=== PATIENT | female | born 1940 | race Caucasian/White ===

== ENCOUNTER → 2020-06-21 10:47 | Outpatient (BNVA) | payer MEDICARE, OTHER, SELFPAY | PROVIDERS: PCP Internal Medicine; Referring Provider Internal Medicine; Visit Provider Internal Medicine Endocrinology, Diabetes & Metabolism | DX: E11.65 Type 2 diabetes mellitus with hyperglycemia (principal); I12.9 Hypertensive chronic kidney disease with stage 1 through stage 4 chronic kidney disease, or unspecified chronic kidney disease; E11.22 Type 2 diabetes mellitus with diabetic chronic kidney disease; N18.4 Chronic kidney disease, stage 4 (severe); E11.40 Type 2 diabetes mellitus with diabetic neuropathy, unspecified; E11.3299 Type 2 diabetes mellitus with mild nonproliferative diabetic retinopathy without macular edema, unspecified eye; Z79.4 Long term (current) use of insulin; E78.5 Hyperlipidemia, unspecified; E55.9 Vitamin D deficiency, unspecified; E66.9 Obesity, unspecified; Z68.34 Body mass index [BMI] 34.0-34.9, adult; Z79.899 Other long term (current) drug therapy | CPT/HCPCS: 82947; 99212 ==

== ENCOUNTER → 2020-10-18 10:18 | Outpatient (BNVA) | payer MEDICARE, OTHER, SELFPAY | PROVIDERS: PCP Internal Medicine; Visit Provider Internal Medicine Endocrinology, Diabetes & Metabolism | DX: E11.65 Type 2 diabetes mellitus with hyperglycemia (principal); E11.21 Type 2 diabetes mellitus with diabetic nephropathy; E11.649 Type 2 diabetes mellitus with hypoglycemia without coma; E11.3299 Type 2 diabetes mellitus with mild nonproliferative diabetic retinopathy without macular edema, unspecified eye; E11.22 Type 2 diabetes mellitus with diabetic chronic kidney disease; I12.9 Hypertensive chronic kidney disease with stage 1 through stage 4 chronic kidney disease, or unspecified chronic kidney disease; N18.4 Chronic kidney disease, stage 4 (severe); Z79.4 Long term (current) use of insulin; E78.5 Hyperlipidemia, unspecified; E55.9 Vitamin D deficiency, unspecified; E66.9 Obesity, unspecified | CPT/HCPCS: 82947; 99212 ==

== ENCOUNTER → 2021-01-18 10:38 | Outpatient (BNVA) | payer MEDICARE, OTHER, SELFPAY | PROVIDERS: PCP Internal Medicine; Visit Provider Internal Medicine Endocrinology, Diabetes & Metabolism | DX: E11.65 Type 2 diabetes mellitus with hyperglycemia (principal); E11.21 Type 2 diabetes mellitus with diabetic nephropathy; E11.649 Type 2 diabetes mellitus with hypoglycemia without coma; E11.3299 Type 2 diabetes mellitus with mild nonproliferative diabetic retinopathy without macular edema, unspecified eye; E11.22 Type 2 diabetes mellitus with diabetic chronic kidney disease; I12.9 Hypertensive chronic kidney disease with stage 1 through stage 4 chronic kidney disease, or unspecified chronic kidney disease; N18.4 Chronic kidney disease, stage 4 (severe); E78.5 Hyperlipidemia, unspecified; E55.9 Vitamin D deficiency, unspecified; E66.9 Obesity, unspecified; Z79.4 Long term (current) use of insulin | CPT/HCPCS: 82947; 99212 ==

== ENCOUNTER → 2021-05-17 12:19 | Outpatient (BNVA) | payer MEDICARE, OTHER, SELFPAY | PROVIDERS: PCP Internal Medicine; Visit Provider Nurse Practitioner Gerontology | DX: E11.65 Type 2 diabetes mellitus with hyperglycemia (principal); E11.21 Type 2 diabetes mellitus with diabetic nephropathy; E11.649 Type 2 diabetes mellitus with hypoglycemia without coma; E11.22 Type 2 diabetes mellitus with diabetic chronic kidney disease; E11.42 Type 2 diabetes mellitus with diabetic polyneuropathy; E11.3299 Type 2 diabetes mellitus with mild nonproliferative diabetic retinopathy without macular edema, unspecified eye; I12.9 Hypertensive chronic kidney disease with stage 1 through stage 4 chronic kidney disease, or unspecified chronic kidney disease; N18.4 Chronic kidney disease, stage 4 (severe); E78.5 Hyperlipidemia, unspecified; E55.9 Vitamin D deficiency, unspecified; E03.9 Hypothyroidism, unspecified; I48.91 Unspecified atrial fibrillation; Z68.37 Body mass index [BMI] 37.0-37.9, adult; Z79.4 Long term (current) use of insulin; Z79.899 Other long term (current) drug therapy | CPT/HCPCS: 82947; 83036; 99212 ==

== ENCOUNTER → 2021-09-11 10:15 | Outpatient (BNVA) | payer MEDICARE, SELFPAY | PROVIDERS: PCP Internal Medicine; Visit Provider Nurse Practitioner Gerontology | DX: E11.65 Type 2 diabetes mellitus with hyperglycemia (principal); E11.21 Type 2 diabetes mellitus with diabetic nephropathy; E11.649 Type 2 diabetes mellitus with hypoglycemia without coma; E11.22 Type 2 diabetes mellitus with diabetic chronic kidney disease; I12.9 Hypertensive chronic kidney disease with stage 1 through stage 4 chronic kidney disease, or unspecified chronic kidney disease; N18.4 Chronic kidney disease, stage 4 (severe); E11.3299 Type 2 diabetes mellitus with mild nonproliferative diabetic retinopathy without macular edema, unspecified eye; E11.42 Type 2 diabetes mellitus with diabetic polyneuropathy; E78.5 Hyperlipidemia, unspecified; E55.9 Vitamin D deficiency, unspecified; E66.9 Obesity, unspecified; Z68.35 Body mass index [BMI] 35.0-35.9, adult; Z79.4 Long term (current) use of insulin | CPT/HCPCS: 82947; 83036; 99212 ==

== ENCOUNTER 2021-09-27 09:44 | Outpatient (REF) | payer MEDICARE, SELFPAY ==
[2021-09-27 11:34] LABS: Alanine Aminotransferase < 6 U/L (0-31); Aspartate Amino Transferase 14 U/L (5-31); Cholesterol 143 mg/dL; HDL Cholesterol 48 mg/dL; LDL Cholesterol Calculated 83 mg/dl; Triglycerides 63 mg/dL
[2021-09-27 11:55] LABS: Free T4 (Free Thyroxine) 1.31 ng/dL (0.71-1.85); Thyroid Stimulating Hormone 2.42 uIU/mL (0.32-4.0)
[2021-09-27 11:59] LABS: Creatinine Urine 119.43 mg/dL; Microalbum/Creatinine Ratio Ur 654.7 ug/mg cr
[2021-09-29 01:22] LABS: LDL Cholesterol Direct 82 mg/dL (<100)
== END 2021-09-27 09:45 | disposition home or self-care (01) ==
LOC: HO.LAB 09:44
PROVIDERS: PCP Internal Medicine; Visit Provider Nurse Practitioner Gerontology
DX: E78.5 Hyperlipidemia, unspecified (principal); E03.9 Hypothyroidism, unspecified; E11.65 Type 2 diabetes mellitus with hyperglycemia
CPT/HCPCS: 36415; 80061; 82043; 83721; 84439; 84443; 84450; 84460

== ENCOUNTER → 2021-12-11 09:39 | Outpatient (BNVA) | payer MEDICARE, SELFPAY | PROVIDERS: PCP Internal Medicine; Visit Provider Nurse Practitioner Gerontology | DX: E11.42 Type 2 diabetes mellitus with diabetic polyneuropathy (principal); E11.3299 Type 2 diabetes mellitus with mild nonproliferative diabetic retinopathy without macular edema, unspecified eye; E55.9 Vitamin D deficiency, unspecified; E66.9 Obesity, unspecified | CPT/HCPCS: 82947; 83036; 99212 ==

== ENCOUNTER 2022-06-03 09:26 | Outpatient (REF) | payer MEDICARE, SELFPAY ==
[2022-06-03 11:22] LABS: MANUAL DIFF FLAG NO
[2022-06-03 11:27] LABS: Basophils Absolute Auto 0.1 X10*3/uL (0.0-0.2); Basophils Percent Auto 1.2 % (0-2); Eosinophils Absolute Auto 0.4 X10*3/uL (0.0-0.4); Hematocrit 40.2 % (37.0-47.0); Hemoglobin 12.8 g/dl (12.0-16.0); Imm Gran Abs Auto 0.01 X10*3/uL (0.00-0.03); Imm Gran Pct Auto 0.2 % (0.0-0.4); Lymphocytes Absolute Auto 1.2 X10*3/uL (1.2-4.9); Mean Corpuscular HGB Conc 31.8 g/dl (31.0-35.0); Mean Corpuscular Hemoglobin 29.8 pg (27.0-33.0); Mean Corpuscular Volume 93.7 fL (80.0-98.0); Mean Platelet Volume 10.6 fL (9.4-12.3); Monocytes Absolute Auto 0.5 X10*3/uL (0.1-1.2); Monocytes Percent Auto 8.9 % (2-11); Neutrophils Absolute Auto 3.7 x10*3/uL (2.0-8.3); Neutrophils Percent Auto 63.7 % (45-73); Platelet Count 271 X10*3/uL (160-400); Red Blood Count 4.29 X10*6/uL (4.20-5.50); Red Cell Distribution Width 14.8 % (11.0-16.0); White Blood Count 5.9 X10*3/uL (4.8-10.8)
[2022-06-03 12:17] LABS: Alanine Aminotransferase 14 U/L (0-31); Albumin Level 3.6 g/dL (3.5-5.0); Alkaline Phosphatase 104 U/L (39-117); Anion Gap 18 (12-20); Aspartate Amino Transferase 18 U/L (5-31); Bilirubin Total 0.7 mg/dL (0.0-1.0); Blood Urea Nitrogen 25 mg/dL (9-16); Calcium 9.3 mg/dL (8.4-10.2); Carbon Dioxide 23 mmol/L (22-29); Chloride 107 mmol/L (96-108); Cholesterol 136 mg/dL; Estimated Glomerular Filt Rate 31; Glucose Fasting 177 mg/dL (60-99); HDL Cholesterol 39 mg/dL; LDL Cholesterol Calculated 81 mg/dl; Sodium 144 mmol/L (135-145); Total Protein 7.1 g/dL (6.5-8.0); Triglycerides 81 mg/dL
[2022-06-03 12:25] LABS: Free T4 (Free Thyroxine) 1.35 ng/dL (0.71-1.85); Thyroid Stimulating Hormone 0.44 uIU/mL (0.32-4.0); Vitamin D 25-OH Total 46.5 ng/mL (>30)
[2022-06-03 12:27] LABS: Estimated Average Glucose 180 mg/dL; Hemoglobin A1c % 7.9 %
== END 2022-06-03 09:27 | disposition home or self-care (01) ==
LOC: HO.HMGCLDS 09:26
PROVIDERS: PCP Internal Medicine; Visit Provider Internal Medicine
DX: E03.9 Hypothyroidism, unspecified (principal); I12.9 Hypertensive chronic kidney disease with stage 1 through stage 4 chronic kidney disease, or unspecified chronic kidney disease; E11.22 Type 2 diabetes mellitus with diabetic chronic kidney disease; N18.4 Chronic kidney disease, stage 4 (severe); I48.20 Chronic atrial fibrillation, unspecified; E78.5 Hyperlipidemia, unspecified; E55.9 Vitamin D deficiency, unspecified; E66.9 Obesity, unspecified; E11.42 Type 2 diabetes mellitus with diabetic polyneuropathy; E11.21 Type 2 diabetes mellitus with diabetic nephropathy; E11.3299 Type 2 diabetes mellitus with mild nonproliferative diabetic retinopathy without macular edema, unspecified eye
CPT/HCPCS: 36415; 80053; 80061; 82306; 83036; 84439; 84443; 85025

== ENCOUNTER 2022-09-14 09:32 | Outpatient (REF) | payer MEDICARE, SELFPAY ==
[2022-09-14 11:56] LABS: Estimated Average Glucose 163 mg/dL; Hemoglobin A1c % 7.3 %
[2022-09-14 12:20] LABS: Alanine Aminotransferase 11 U/L (0-31); Aspartate Amino Transferase 15 U/L (5-31); Cholesterol 138 mg/dL; HDL Cholesterol 51 mg/dL; LDL Cholesterol Calculated 74 mg/dl; Triglycerides 68 mg/dL
[2022-09-14 12:26] LABS: Free T4 (Free Thyroxine) 1.11 ng/dL (0.71-1.85); Thyroid Stimulating Hormone 1.51 uIU/mL (0.32-4.0); Vitamin D 25-OH Total 42.7 ng/mL (>30)
== END 2022-09-14 09:33 | disposition home or self-care (01) ==
LOC: HO.HMGCLDS 09:32
PROVIDERS: PCP Internal Medicine; Visit Provider Internal Medicine
DX: E11.3299 Type 2 diabetes mellitus with mild nonproliferative diabetic retinopathy without macular edema, unspecified eye (principal); E11.42 Type 2 diabetes mellitus with diabetic polyneuropathy; E78.5 Hyperlipidemia, unspecified; E03.9 Hypothyroidism, unspecified
CPT/HCPCS: 36415; 80061; 82306; 83036; 84439; 84443; 84450; 84460

== ENCOUNTER 2022-11-13 08:54 | Outpatient (REF) | payer MEDICARE, SELFPAY ==
--- NOTE | ~2022-11-13 | MM_ITS ---
EXAMINATION: BONE DENSITOMETRY CLINICAL INDICATION: Chronic kidney disease, stage IV. COMPARISON: This is the patient's baseline examination. TECHNIQUE: Using a [employer] DXA System (software version: 13.1) manufactured by [employer] dual-energy x-ray absorptiometry was performed of the lumbar spine, left hip and left forearm radius 33%. The images are of good technical quality. Summary results are attached. FINDINGS: AP SPINE L1-L4: BMD 1.208 g/cm2, Z-score 1.5, T-score 0.2, normal. LEFT FEMUR, NECK: BMD 0.636 g/cm2, Z-score -1.1, T-score -2.9, osteoporosis. LEFT FEMUR, TOTAL: BMD 0.704 g/cm2, Z-score -0.7, T-score -2.4, osteopenia. LEFT FOREARM RADIUS 33%: BMD 0.691 g/cm2, Z-score 0.7, T-score -2.1, osteopenia. IDENTIFIED RISK FACTORS: Early menopause, secondary osteoporosis, history of fracture (adult), menopause, hysterectomy, left oophorectomy, renal, thiazide. HISTORY OF FRACTURE: Other. MEDICATIONS: Vitamin D. MM/XR DEXA axial skeleton IMPRESSION: 1. DIAGNOSIS: Osteoporosis based on the lowest T-score value of -2.9 in the femoral neck applying World Health Organization criteria. 2. 10-YEAR FRACTURE RISK PREDICTION, FRAX: According to the guidelines, FRAX calculation should only be performed on patients in the osteopenia bone density category. Therefore, FRAX was not performed on this patient. 3. Treatment Recommendations: NOF guidelines recommend consideration for treatment in postmenopausal women and men age 50 and older presenting with the following: -A hip or vertebral (clinical or morphometric) fracture. -T-score less than or equal to -2.5 at the femoral neck or spine after appropriate evaluation to exclude secondary causes. -Low bone mass at the hip or spine and a 10-year fracture probability by FRAX of greater than or equal to 3% for hip fracture or greater than or equal to 20% for major osteoporotic fracture based on the [place] adapted WHO algorithm. 4. Other Recommendations: All treatment decisions require clinical judgment and consideration of individual patient factors, including patient preferences, comorbidities, previous drug use, risk factors not captured in the FRAX model (e.g. frailty, falls, vitamin D deficiency, increased bone turnover, interval significant decline in bone density) and possible under or overestimation of fracture risk by FRAX. Additional medical evaluation for secondary cause of low bone mineral density may be appropriate. FUTURE SCAN RECOMMENDATION: People with diagnosed cases of osteoporosis or at high risk for fracture should have regular bone mineral density tests. For patients eligible for Medicare, routine testing is allowed once every 2 years. The testing frequency can be increased to one year for patients who have rapidly progressing disease, those who are receiving or discontinuing medical therapy to restore bone mass, or have additional risk factors.
== END 2022-11-13 08:55 | disposition home or self-care (01) ==
LOC: HO.MAMMO 08:54
PROVIDERS: PCP Internal Medicine; Visit Provider Internal Medicine
DX: Z13.820 Encounter for screening for osteoporosis (principal); N18.4 Chronic kidney disease, stage 4 (severe); E55.9 Vitamin D deficiency, unspecified; Z78.0 Asymptomatic menopausal state
CPT/HCPCS: 77080

== ENCOUNTER 2022-12-13 09:03 | Outpatient (REF) | payer MEDICARE, SELFPAY ==
[2022-12-13 11:25] LABS: MANUAL DIFF FLAG NO
[2022-12-13 11:56] LABS: Basophils Absolute Auto 0.1 X10*3/uL (0.0-0.2); Basophils Percent Auto 0.9 % (0-2); Eosinophils Absolute Auto 0.4 X10*3/uL (0.0-0.4); Eosinophils Percent Auto 5.7 % (0-4); Hemoglobin 13.4 g/dl (12.0-16.0); Imm Gran Abs Auto 0.03 X10*3/uL (0.00-0.03); Imm Gran Pct Auto 0.4 % (0.0-0.4); Lymphocytes Absolute Auto 0.9 X10*3/uL (1.2-4.9); Lymphocytes Percent Auto 12.7 % (20-40); Mean Corpuscular HGB Conc 31.9 g/dl (31.0-35.0); Mean Corpuscular Hemoglobin 30.5 pg (27.0-33.0); Mean Corpuscular Volume 95.5 fL (80.0-98.0); Mean Platelet Volume 10.4 fL (9.4-12.3); Monocytes Absolute Auto 0.6 X10*3/uL (0.1-1.2); Monocytes Percent Auto 7.6 % (2-11); Neutrophils Absolute Auto 5.4 x10*3/uL (2.0-8.3); Neutrophils Percent Auto 72.7 % (45-73); Platelet Count 284 X10*3/uL (160-400); Red Cell Distribution Width 14.6 % (11.0-16.0); White Blood Count 7.4 X10*3/uL (4.8-10.8)
[2022-12-13 12:27] LABS: Estimated Average Glucose 163 mg/dL; Hemoglobin A1c % 7.3 %
[2022-12-13 12:30] LABS: Alanine Aminotransferase 11 U/L (0-31); Anion Gap 17 (12-20); Aspartate Amino Transferase 15 U/L (5-31); Blood Urea Nitrogen 28 mg/dL (9-16); Calcium 9.1 mg/dL (8.4-10.2); Carbon Dioxide 24 mmol/L (22-29); Chloride 108 mmol/L (96-108); Cholesterol 149 mg/dL; Estimated Glomerular Filt Rate 32; Glucose Fasting 198 mg/dL (60-99); HDL Cholesterol 47 mg/dL; LDL Cholesterol Calculated 87 mg/dl; Potassium 4.1 mmol/L (3.3-5.1); Sodium 145 mmol/L (135-145); Triglycerides 77 mg/dL
[2022-12-13 12:32] LABS: Free T4 (Free Thyroxine) 1.69 ng/dL (0.71-1.85); Thyroid Stimulating Hormone 0.77 uIU/mL (0.32-4.0); Vitamin D 25-OH Total 47.9 ng/mL (>30)
== END 2022-12-13 09:04 | disposition home or self-care (01) ==
LOC: HO.HMGCLDS 09:03
PROVIDERS: PCP Internal Medicine; Visit Provider Internal Medicine
DX: I12.9 Hypertensive chronic kidney disease with stage 1 through stage 4 chronic kidney disease, or unspecified chronic kidney disease (principal); E11.22 Type 2 diabetes mellitus with diabetic chronic kidney disease; N18.4 Chronic kidney disease, stage 4 (severe); E03.9 Hypothyroidism, unspecified; E11.21 Type 2 diabetes mellitus with diabetic nephropathy; E11.3299 Type 2 diabetes mellitus with mild nonproliferative diabetic retinopathy without macular edema, unspecified eye; E11.42 Type 2 diabetes mellitus with diabetic polyneuropathy; E55.9 Vitamin D deficiency, unspecified; E78.5 Hyperlipidemia, unspecified; I48.20 Chronic atrial fibrillation, unspecified; Z79.4 Long term (current) use of insulin
CPT/HCPCS: 36415; 80048; 80061; 82306; 83036; 84439; 84443; 84450; 84460; 85025

== ENCOUNTER 2022-12-16 11:00 | Outpatient (AMB) | payer MEDICARE, SELFPAY ==
--- NOTE | 2022-12-16 11:11 | MHC.PC.OV ---
Vital Signs 12/16/22 11:14 Height 5 ft 2 in Weight 181 lb 8 oz BMI 33.2 BP 136/84 Blood Pressure Location Rt brachial Position Sitting Pulse 91 Pulse Source Pulse Oximeter Pulse Oximetry (%) 94 Oxygen Delivery Method Room Air Intake Visit Reasons: 3 months ffup dm ,lipids, thyroid after labs done Intake Note: Pt is here today for 3 month f/u dm. lipids, thyroid Allergies No Known Allergies [No Known Allergies*] Allergy (Verified 06/11/23 10:16) Medication List - Last Reconciled 09/19/23 by Lindsay Mckeon MD apixaban 2.5 mg PO BID atorvastatin 20 mg PO DAILY blood sugar diagnostic As directed blood sugar diagnostic (Accu-Chek Karlie Plus test strips) As directed 4 times a day blood-glucose meter (Accu-Chek Karlie Plus Meter) As directed 4 times a day cholecalciferol (vitamin D3) 50 mcg PO DAILY [diabetic shoes As directed] [Diabetic shoes with inserts As directed NS] diltiazem HCl (Cartia XT) 300 mg PO DAILY furosemide 20 mg PO DAILY insulin lispro (Humalog KwikPen (U-100) Insulin) 4 - 6 units for meals, 2-3 units snacks subcut five times a day ; 90 days lancets As directed 4x per day levothyroxine 150 mcg PO DAILY lisinopril 20 mg PO DAILY metoprolol succinate ER 200 mg PO DAILY potassium chloride ER 10 mEq PO DAILY Toujeo SoloStar U-300 Insulin (insulin glargine U-300 conc) 15 units (0.05 mL) subcut BEDTIME 90 days NS Tobacco use date assessed: 12/16/22 Fall risk assessment: No Falls in past year Last assessed Fall Risk: 12/16/22 HPI 3 months ffup dm ,lipids, thyroid after labs done HPI Details 82-year-old lady with diabetes mellitus, hypothyroidism and hyperlipidemia, here today for her follow-up. She has been compliant with taking her medications. Blood pressure stable and controlled on present treatment. Recent labs showed fasting lipids within normal limits, thyroid levels are as well within normal limits, hemoglobin A1c slightly elevated at 7.3% been feeling. Has been feeling well with no complaints at present time. Last eye exam on file was in 2020 which showed background diabetic retinopathy [facility] . 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 Background diabetic retinopathy associated with type 2 diabetes mellitus Osteoarthritis Hypothyroidism Carotid stenosis, right Obesity (BMI 30-39.9) Dyslipidemia Hypertension CKD (chronic kidney disease) stage 4, GFR 15-29 ml/min Diabetic nephropathy associated with type 2 diabetes mellitus senior living (current) use of insulin Vitamin D deficiency Surgical History Hx of left mastectomy Hx of tubal ligation Hx of lumpectomy Hx of hysterectomy Family History Father Coronary artery disease Diabetes mellitus Mother Diabetes mellitus Social History Household Members: None Housing: House Alcohol intake: never Patient Tobacco Use Status: Never used Tobacco e-Cigarette/Vaping Use: Never Used Current occupational status: retired Cognitive needs: No Hearing needs: No Vision needs: Yes Questionnaire Thrive Questionnaire Date Thrive assessed: 09/18/22 AUDIT C Alcohol Use Questionnaire (AUDIT-C) 1. How often do you have a drink containing alcohol?: Never Total Score: 0 LOC-7 AMB Questionnaire LOC-7 Date LOC - 7 assessed: 09/18/22 Source: Developed by Drs. Black Frank, Wendy Lugo, Ryan Pineda and colleagues, with an educational kathi from [employer]. Review of Systems Const Denies headache(s) and Denies weakness Eyes Denies change in vision ENT Denies dysphagia, Denies dizziness, Denies headache(s), Denies nasal congestion and Denies sore throat Card Denies palpitations and Denies dyspnea Resp Denies cough and Denies dyspnea GI Denies constipation, Denies dysphagia and Denies diarrhea Denies urinary frequency and Denies dysuria Musc Denies muscle cramps, Denies muscle weakness, Reports numbness (Occasional numbness in both feet) and Reports tingling (Occasional in both feet) Skin/Breast Details: Plantar callus present in both feet Neuro Denies dizziness, Denies headache(s), Reports numbness (Occasional numbness in both feet), Reports tingling (Occasional in both feet), Reports paresthesias and Denies weakness Psych Reports no additional complaints Endo Denies polydipsia, Denies polyuria and Denies palpitations Ra/Lymph Denies easy bruising Aller/Immun Reports no additional complaints Physical exam (Primary Care) Vital Signs: Last Vital Signs Pulse 91 12/16/22 11:14 BP 136/84 12/16/22 11:14 Pulse Ox 94 12/16/22 11:14 Oxygen Delivery Method Room Air 12/16/22 11:14 BMI result Body Mass Index 33.2 Tobacco/Smoking Status: Tobacco use Status Tobacco use date assessed 12/16/22 12/16/22 11:12 Patient Tobacco Use Status Never used Tobacco 12/16/22 11:12 e-Cigarette/Vaping Use Never Used 12/16/22 11:12 Thrive Assessment: Date of Thrive Assessment Date Thrive assessed 09/18/22 12/16/22 11:12 Const General: comfortable, no acute distress and alert Orientation/consciousness: patient oriented x3 Limitations: ambulation with walker HENMT Ears: external ears normal General nose exam: Normal external nose present and No nasal discharge present Mouth: oropharynx normal and moist mucous membranes Eyes General: appearance normal, both eyes and all related structures Neck Neck: Yes full ROM, Yes no lymphadenopathy and Yes supple Resp Effort & Inspection: normal respiratory effort and able to speak in complete sentences Auscultation: clear to auscultation bilaterally Cardio Rate: regular rate Rhythm: regular rhythm Heart sounds: S1 normal heart sound present, S2 normal heart sound present and Murmur heart sound present systolic at the left sternal border GI Palpation (GI): Soft to palpation, nontender and no masses Auscultation: normal bowel sounds General: Yes no CVA tenderness Back/Spine/Pelvis Back: no CVA tenderness and No back tenderness Skin General skin exam: no rashes or lesions noted Neuro General: patient oriented x3, moves all extremities, no focal motor deficits and decrease sensation to monofilament (Both feet) Cranial nerves: Yes CN's II-XII intact bilaterally Cognition (Neuro): normal cognition Gait exam (Neuro): Assisted gait required Extrem Other: Plantar callus present in both feet General: Yes full ROM, Yes no joint enlargement, Yes no clubbing, cyanosis or edema and Yes no calf tenderness Psych Appearance: grossly normal and well kempt Mental Status: mental status grossly normal Speech and movement: Normal speech and movement present Affect: normal affect Attitude: cooperative Thought process: Normal thought process present Results Reviewed Results Reviewed: ENTERED: 12/13/[address]: ORDERED: CBC Auto Diff Test Result Flag Reference Site WBC 7.4 4.8-10.8 X10*3/uL RBC 4.40 4.20-5.50 X10*6/uL HGB 13.4 12.0-16.0 g/dl HCT 42.0 37.0-47.0 % MCV 95.5 80.0-98.0 fL MCH 30.5 27.0-33.0 pg MCHC 31.9 31.0-35.0 g/dl RDW 14.6 11.0-16.0 % PLT 284 160-400 X10*3/uL MPV 10.4 9.4-12.3 fL Neut Pct Auto 72.7 45-73 % ImGran Pct Auto 0.4 0.0-0.4 % Lymp Pct Auto 12.7 L 20-40 % Surry Pct Auto 7.6 2-11 % Eos Pct Auto 5.7 H 0-4 % Baso Pct Auto 0.9 0-2 % NRBC Pct Auto 0.0 0.0-0.2 /100WBC ANC Neut Abs # 5.4 2.0-8.3 x10*3/uL ImGran Abs Auto 0.03 0.00-0.03 X10*3/uL Lymph Abs Auto 0.9 L 1.2-4.9 X10*3/uL Surry Abs Auto 0.6 0.1-1.2 X10*3/uL Eos Abs Auto 0.4 0.0-0.4 X10*3/uL Baso Abs Auto 0.1 0.0-0.2 X10*3/uL NRBC Abs Auto 0.000 0.0-0.012 X10*3/uL NTERED: 12/13/[address]: ORDERED: Met Prof Fast, AST, ALT, Lipid Panel, Vitamin D 25-OH, Free T4, TSH Test Result Flag Reference Site Sodium 145 135-145 mmol/L Potassium 4.1 3.3-5.1 mmol/L CL 108 96-108 mmol/L CO2 24 22-29 mmol/L Gap 17 12-20 BUN 28 H 9-16 mg/dL Creat 1.57 H 0.5-1.4 mg/dL EGFR 32 NOTE: For -Vincentian individuals, multiply the result by 1.210. Chronic Kidney Disease: Estimated GFR < 60 mL/min/1.73m2 Severe Kidney Disease: Estimated GFR < 15 mL/min/1.73m2 FBS 198 H 60-99 mg/dL A fasting glucose of 126 mg/dl or greater on more than one occasion is considered diagnostic of diabetes. CA 9.1 8.4-10.2 mg/dL AST (GOT) 15 5-31 U/L ALT (GPT) 11 0-31 U/L Triglyceride 77 mg/dL Desirable Triglyceride: less than 150 mg/dL Borderline High Triglyceride 150-199 mg/dL High Triglyceride: 200-499 mg/dL Very High Triglyceride: greater than or equal to 5OO mg/dL Chol 149 mg/dL Desirable Cholesterol: less than 200 mg/dL Borderline High Cholesterol: 200-239 mg/dL High Cholesterol: greater than 239 mg/dL LDL Calculated 87 mg/dl Desirable LDL: less than 100 mg/dL Near Optimal/Above Optimal LDL: 110-129 mg/dL Borderline High LDL: 130-159 mg/dL High LDL: 160-189 mg/dL Very High LDL: greater than or equal to 190 mg/dL HDL 47 mg/dL Desirable HDL: greater than 40 mg/dL Note: This HDL assay may give artificially low results in patients with liver disease. Vit D 25-OH Tot 47.9 >30 ng/mL Health Based Reference Values* < 20 ng/mL Deficient 20-30 ng/mL Insufficient > 30 ng/mL Sufficient *Paul KENNY. N Engl J Med. 2007;[id number] Care must be taken in interpreting Vitamin D results from different laboratories and methodologies. Published data demonstrated that results from patients undergoing hemodialysis may show a negative bias when tested with various automated 25-OH vitamin D assays when compared to LC-MS/MS. When testing samples from patients whose predominant form of Vitamin D is Vitamin D2, such as patients receiving Vitamin D2 supplementation, results that are subtherapeutic should be confirmed with another method such as LC-MS/MS. Free T4 1.69 0.71-1.85 ng/dL TSH 3rd Gen. 0.77 0.32-4.0 uIU/mL Laboratory Tests 12/13/22 09:09 Estimat Average Glucose 163 Hemoglobin A1c % 7.3 Assessment and Plan Assessment & Plan (1) Type 2 diabetes mellitus with diabetic polyneuropathy: Code(s): E11.42 - Type 2 diabetes mellitus with diabetic polyneuropathy (2) Hypothyroidism: Code(s): E03.9 - Hypothyroidism, unspecified Plan: Thyroid levels are within normal limits, continue with current dose of levothyroxine (3) Dyslipidemia: Code(s): E78.5 - Hyperlipidemia, unspecified Plan: Reviewed recent fasting lipid profile with patient with levels within normal limit . Continue with atorvastatin 20 mg , in addition to adherence to low-cholesterol diet and regular exercise, at least 30 minutes 3 to 4 times a week. Advised patient to make healthy food choices, eat more fruits, vegetables, whole grains, wild caught fish and low-fat dairy. Limit amount of meat and fried or fatty food products, as well as processed foods and fast foods. Follow-up scheduled with repeat fasting lipid panel in 6 months. (4) Hypertension: Code(s): I10 - Essential (primary) hypertension Qualifiers: Hypertension type: primary hypertension Qualified Code(s): I10 - Essential (primary) hypertension Plan: Continue on lisinopril, metoprolol succinate furosemide and diltiazem. Orders: Orders Thyroid Stimulating Hormone 6 Months E11.42 - Type 2 diabetes mellitus with diabetic polyneuropathy, E11.3299 - Type 2 diabetes mellitus with mild nonproliferative diabetic retinopathy without macular edema, unspecified eye, E03.9 - Hypothyroidism, unspecified, E78.5 - Hyperlipidemia, unspecified, I10 - Essential (primary) hypertension Free T4 (Free Thyroxine) 6 Months E03.9 - Hypothyroidism, unspecified, E11.42 - Type 2 diabetes mellitus with diabetic polyneuropathy, E11.3299 - Type 2 diabetes mellitus with mild nonproliferative diabetic retinopathy without macular edema, unspecified eye, E78.5 - Hyperlipidemia, unspecified, I10 - Essential (primary) hypertension Alanine Aminotransferase 6 Months E11.42 - Type 2 diabetes mellitus with diabetic polyneuropathy, E11.3299 - Type 2 diabetes mellitus with mild nonproliferative diabetic retinopathy without macular edema, unspecified eye, E03.9 - Hypothyroidism, unspecified, E78.5 - Hyperlipidemia, unspecified, I10 - Essential (primary) hypertension Lipid Panel 6 Months E11.42 - Type 2 diabetes mellitus with diabetic polyneuropathy, .329 - Type 2 diabetes mellitus with mild nonproliferative diabetic retinopathy without macular edema, unspecified eye, E03.9 - Hypothyroidism, unspecified, E78.5 - Hyperlipidemia, unspecified, I10 - Essential (primary) hypertension Aspartate Amino Transferase 6 Months E11.42 - Type 2 diabetes mellitus with diabetic polyneuropathy, .329 - Type 2 diabetes mellitus with mild nonproliferative diabetic retinopathy without macular edema, unspecified eye, E03.9 - Hypothyroidism, unspecified, E78.5 - Hyperlipidemia, unspecified, I10 - Essential (primary) hypertension Hemoglobin A1c 6 Months E11.42 - Type 2 diabetes mellitus with diabetic polyneuropathy, .3298 - Type 2 diabetes mellitus with mild nonproliferative diabetic retinopathy without macular edema, unspecified eye, E03.9 - Hypothyroidism, unspecified, E78.5 - Hyperlipidemia, unspecified, I10 - Essential (primary) hypertension Basic Metabolic Panel Fasting 6 Months E11.42 - Type 2 diabetes mellitus with diabetic polyneuropathy, .3298 - Type 2 diabetes mellitus with mild nonproliferative diabetic retinopathy without macular edema, unspecified eye, E03.9 - Hypothyroidism, unspecified, E78.5 - Hyperlipidemia, unspecified, I10 - Essential (primary) hypertension Coding Level of Care Code Est Pt Level 4 (69592) Diagnoses Type 2 diabetes mellitus with diabetic polyneuropathy E11.42 Hypothyroidism E03.9 Dyslipidemia E78.5 Primary hypertension I10 Hypertension type: primary hypertension
[2022-12-16 11:14] VITALS: BP 136/84; PULSE 91; O2SAT 94; BMI 33.2
== END 2022-12-16 12:24 | disposition home or self-care (01) ==
LOC: HO.HMGC 11:00
PROVIDERS: PCP Internal Medicine; Visit Provider Internal Medicine
DX: E11.42 Type 2 diabetes mellitus with diabetic polyneuropathy (principal); E03.9 Hypothyroidism, unspecified; E78.5 Hyperlipidemia, unspecified; I10 Essential (primary) hypertension
CPT/HCPCS: 99499

== ENCOUNTER 2022-12-16 16:55 | Outpatient (REF) | payer MEDICARE, SELFPAY ==
[2022-12-16 18:27] LABS: Creatinine Urine 59.83 mg/dL
[2022-12-16 18:41] LABS: Microalbum/Creatinine Ratio Ur 915.9 ug/mg cr
== END 2022-12-16 16:56 | disposition home or self-care (01) ==
LOC: HO.LNP 16:55
PROVIDERS: Visit Provider Internal Medicine
DX: E11.42 Type 2 diabetes mellitus with diabetic polyneuropathy (principal); I48.20 Chronic atrial fibrillation, unspecified
CPT/HCPCS: 82043

== ENCOUNTER 2023-06-10 11:00 | Outpatient (REF) | payer MEDICARE, SELFPAY ==
[2023-06-10 14:02] LABS: Estimated Average Glucose 154 mg/dL
[2023-06-10 14:03] LABS: Alanine Aminotransferase 8 U/L (0-31); Anion Gap 15 (12-20); Aspartate Amino Transferase 19 U/L (5-31); Blood Urea Nitrogen 29 mg/dL (9-16); Calcium 9.1 mg/dL (8.4-10.2); Carbon Dioxide 24 mmol/L (22-29); Chloride 105 mmol/L (96-108); Cholesterol 153 mg/dL (<200); Estimated Glomerular Filt Rate 33; Glucose Fasting 172 mg/dL (60-99); HDL Cholesterol 51 mg/dL (>40); LDL Cholesterol Calculated 87 mg/dL (<100); Potassium 4.1 mmol/L (3.3-5.1); Sodium 140 mmol/L (135-145); Triglycerides 76 mg/dL (<150)
[2023-06-10 14:25] LABS: Free T4 (Free Thyroxine) 1.32 ng/dL (0.71-1.85)
== END 2023-06-10 11:01 | disposition home or self-care (01) ==
LOC: HO.HMGCLDS 11:00
PROVIDERS: PCP Internal Medicine; Visit Provider Internal Medicine
DX: E11.42 Type 2 diabetes mellitus with diabetic polyneuropathy (principal); E11.3299 Type 2 diabetes mellitus with mild nonproliferative diabetic retinopathy without macular edema, unspecified eye; E78.5 Hyperlipidemia, unspecified; I10 Essential (primary) hypertension; E03.9 Hypothyroidism, unspecified
CPT/HCPCS: 36415; 80048; 80061; 83036; 84439; 84443; 84450; 84460

== ENCOUNTER 2023-06-11 09:16 | Outpatient (AMB) | payer MEDICARE, SELFPAY ==
--- NOTE | 2023-06-11 09:23 | MHC.PC.OV ---
Vital Signs 06/11/23 09:25 Height 5 ft 2 in Weight 172 lb 4 oz BMI 31.5 BP 142/78 H Blood Pressure Location Rt brachial Position Sitting Pulse 55 Pulse Source Pulse Oximeter Pulse Oximetry (%) 97 Oxygen Delivery Method Room Air Intake Visit Reasons: Annual Physical Intake Note: pt is here for her Annual PE and had her Labs yesterday pt has not had her covid her flu vaccine yet Allergies No Known Allergies [No Known Allergies*] Allergy (Verified 06/11/23 10:16) Medication List - Last Reconciled 06/11/23 by Lindsay Mckeon MD apixaban 2.5 mg PO BID atorvastatin 20 mg PO DAILY blood sugar diagnostic As directed blood sugar diagnostic (Accu-Chek Karlie Plus test strips) As directed 4 times a day blood-glucose meter (Accu-Chek Karlie Plus Meter) As directed 4 times a day cholecalciferol (vitamin D3) 50 mcg PO DAILY [diabetic shoes As directed] diltiazem HCl (Cartia XT) 300 mg PO DAILY furosemide 20 mg PO DAILY insulin lispro (Humalog KwikPen (U-100) Insulin) 4 - 6 units for meals, 2-3 units snacks subcut five times a day ; 90 days lancets As directed 4x per day levothyroxine 150 mcg PO DAILY lisinopril 20 mg PO DAILY metoprolol succinate ER 200 mg PO DAILY potassium chloride ER 10 mEq PO DAILY Toujeo SoloStar U-300 Insulin (insulin glargine U-300 conc) 15 units (0.05 mL) subcut BEDTIME 90 days NS Tobacco use date assessed: 06/11/23 Fall risk assessment: No Falls in past year Last assessed Fall Risk: 06/11/23 Dental Screening Dental Screen Date: 06/11/23 Did you have a dental visit in the last 12 months?: No Did you have a dental problem in the last 6 months where you did not have access to dental care?: No Was dental information given to patient?: No HPI Annual Physical HPI Details 82-year-old lady with diabetes mellitus with background diabetic retinopathy and nephropathy, osteoarthritis, hypothyroidism, dyslipidemia, chronic atrial fibrillation on Eliquis, and chronic kidney disease, and history of ductal carcinoma in Situ of breast, here today for her physical exam. She has been feeling well, with no complaints at present time, compliant with taking her medications. She was recently seen by Dr. 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 Continued on current dose of furosemide and to have and repeat echocardiogram done in the future. Fasting lipid panel was ordered by her evaporative cooler installer. An EKG was also done during that visit which showed more ST-T abnormality compared to previous EKG but patient currently symptomatic. Given the risk factors days scheduled her for a pharmacologic nuclear stress test . 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 Diabetes stable and controlled on present treatment so far with a hemoglobin A1c at 7%, fasting lipids are within normal limits with an LDL cholesterol less than 100 mg/dL, has normal vitamin-D level and thyroid levels are also are all within normal limits. 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 Depression Screening Interpretation: Negative Depression Screening Done: Yes Source: Developed by Drs. Black Frank, Wendy Lugo, Ryan Pineda and colleagues, with an educational kathi from [employer]. Thrive Questionnaire Date Thrive assessed: 09/18/22 LOC-7 AMB Questionnaire LOC-7 Date LOC - 7 assessed: 09/18/22 Source: Developed by Drs. Black Frank, Wendy Lugo, Ryan Pineda and colleagues, with an educational kathi from [employer]. Review of Systems Const Denies headache(s) and Denies weakness Eyes Denies change in vision ENT Denies dysphagia, Denies dizziness, Denies headache(s), Denies nasal congestion and Denies sore throat Card Denies palpitations and Denies dyspnea Resp Denies cough and Denies dyspnea GI Denies constipation, Denies dysphagia and Denies diarrhea Denies urinary frequency and Denies dysuria Musc Denies muscle cramps, Denies muscle weakness, Reports numbness (Occasional numbness in both feet) and Reports tingling (Occasional in both feet) Skin/Breast Details: Plantar callus present in both feet Neuro Denies dizziness, Denies headache(s), Reports numbness (Occasional numbness in both feet), Reports tingling (Occasional in both feet), Reports paresthesias and Denies weakness Psych Reports no additional complaints Endo Denies polydipsia, Denies polyuria and Denies palpitations Ra/Lymph Denies easy bruising Aller/Immun Reports no additional complaints Physical exam (Primary Care) Vital Signs: Last Vital Signs Pulse 55 06/11/23 09:25 BP 142/78 H 06/11/23 09:25 Pulse Ox 97 06/11/23 09:25 Oxygen Delivery Method Room Air 06/11/23 09:25 BMI result Body Mass Index 31.5 Tobacco/Smoking Status: Tobacco use Status Tobacco use date assessed 06/11/23 06/11/23 09:34 Patient Tobacco Use Status Never used Tobacco 06/11/23 09:25 e-Cigarette/Vaping Use Never Used 06/11/23 09:25 Depression Screening Interpretation: Negative Thrive Assessment: Date of Thrive Assessment Date Thrive assessed 09/18/22 06/11/23 09:25 Advance Care Planning discussion: On file, no changes Date of discussion: 06/11/23 Who was present: Patient Forms completed: MOLST Time spent: 1-15 minutes, on File Actual minutes spent: 15 Const General: comfortable, no acute distress and alert Orientation/consciousness: patient oriented x3 Limitations: ambulation with walker HENMT Ears: external ears normal General nose exam: Normal external nose present and No nasal discharge present Mouth: oropharynx normal and moist mucous membranes Eyes General: appearance normal, both eyes and all related structures Neck Neck: Yes full ROM, Yes no lymphadenopathy and Yes supple Resp Effort & Inspection: normal respiratory effort and able to speak in complete sentences Auscultation: clear to auscultation bilaterally Cardio Rate: regular rate Rhythm: regular rhythm Heart sounds: S1 normal heart sound present, S2 normal heart sound present and Murmur heart sound present systolic at the left sternal border GI Palpation (GI): Soft to palpation, nontender and no masses Auscultation: normal bowel sounds General: Yes no CVA tenderness Back/Spine/Pelvis Back: no CVA tenderness and No back tenderness Skin General skin exam: no rashes or lesions noted Neuro General: patient oriented x3, moves all extremities, no focal motor deficits and decrease sensation to monofilament (Both feet) Cranial nerves: Yes CN's II-XII intact bilaterally Cognition (Neuro): normal cognition Gait exam (Neuro): Assisted gait required Extrem Other: Plantar callus present in both feet General: Yes full ROM, Yes no joint enlargement, Yes no clubbing, cyanosis or edema and Yes no calf tenderness Psych Appearance: grossly normal and well kempt Mental Status: mental status grossly normal Speech and movement: Normal speech and movement present Affect: normal affect Attitude: cooperative Thought process: Normal thought process present Results Reviewed Results Reviewed: Laboratory Tests 09/14/22 06/10/23 09:37 11:04 Estimat Average Glucose 163 154 Hemoglobin A1c % 7.3 7.0 H AST 15 ALT 11 Cholesterol 138 LDL Cholesterol, Calc 74 HDL Cholesterol 51 25-OH Vitamin D Total 42.7 TSH 1.51 Free T4 1.11 SPEC : [id number] ANIKA: 06/10/23 STATUS: COMP REQ : [id number] RECD: 06/10/23-[address]: Lindsay Mckeon MD COMP: 06/10/23-1425 ENTERED: 06/10/23-[address] [facility] [address]: ORDERED: Met Prof Fast, AST, ALT, Lipid Panel, Free T4, TSH Test Result Flag Reference Site Sodium 140 135-145 mmol/L Potassium 4.1 3.3-5.1 mmol/L CL 105 96-108 mmol/L CO2 24 22-29 mmol/L Gap 15 12-20 BUN 29 H 9-16 mg/dL Creat 1.53 H 0.5-1.4 mg/dL EGFR 33 NOTE: For -[place] individuals, multiply the result by 1.210. Chronic Kidney Disease: Estimated GFR < 60 mL/min/1.73m2 Severe Kidney Disease: Estimated GFR < 15 mL/min/1.73m2 FBS 172 H 60-99 mg/dL A fasting glucose of 126 mg/dl or greater on more than one occasion is considered diagnostic of diabetes. CA 9.1 8.4-10.2 mg/dL AST (GOT) 19 5-31 U/L ALT (GPT) 8 0-31 U/L Triglyceride 76 <150 mg/dL Desirable Triglyceride: less than 150 mg/dL Borderline High Triglyceride 150-199 mg/dL High Triglyceride: 200-499 mg/dL Very High Triglyceride: greater than or equal to 5OO mg/dL Cholesterol 153 <200 mg/dL Desirable Cholesterol: less than 200 mg/dL Borderline High Cholesterol: 200-239 mg/dL High Cholesterol: greater than 239 mg/dL LDL Calculated 87 <100 mg/dL Desirable LDL: less than 100 mg/dL Near Optimal/Above Optimal LDL: 110-129 mg/dL Borderline High LDL: 130-159 mg/dL High LDL: 160-189 mg/dL Very High LDL: greater than or equal to 190 mg/dL HDL 51 >40 mg/dL Desirable HDL: greater than 40 mg/dL Note: This HDL assay may give artificially low results in patients with liver disease. Free T4 1.32 0.71-1.85 ng/dL TSH 3rd Gen. 0.50 0.32-4.0 uIU/mL TSH 3rd Generation ([facility]) Assessment and Plan Assessment & Plan (1) Type 2 diabetes mellitus with diabetic polyneuropathy: Code(s): E11.42 - Type 2 diabetes mellitus with diabetic polyneuropathy Plan: Recent lab results reviewed with patient, with sugar and hemoglobin A1c stable and at goal continue to check fasting blood sugar at home, maintain log and bring to next appointment for review. Reinforced diabetic diet and regular exercise with patient. Counseled regarding importance of yearly diabetes retinopathy screening. Patient advised to inspect feet daily, for any signs of injury, or infection. She was given a prescription for her diabetic shoes and inserts peer Compliance with diet and regular exercise again stressed. Blood pressure goal is less than 130/80, goal LDL is less than 100 and goal hemoglobin A1c is less than 7% follow-up appointment made in-5--months, after fasting labs done. (2) Background diabetic retinopathy associated with type 2 diabetes mellitus: Code(s): E11.3299 - Type 2 diabetes mellitus with mild nonproliferative diabetic retinopathy without macular edema, unspecified eye (3) Hypothyroidism: Code(s): E03.9 - Hypothyroidism, unspecified Plan: Continue levothyroxine 150 mcg taken once a day in a.m. (4) Carotid stenosis, right: Code(s): I65.21 - Occlusion and stenosis of right carotid artery Plan: Stressed importance of getting diabetes mellitus hypertension and cholesterol levels under good control, currently followed by cardiology (5) Obesity (BMI 30-39.9): Code(s): E66.9 - Obesity, unspecified Plan: Discussed need to increase activity and wt reduction. Recommended focusing on improving your health instead of dieting. : Eat Mediterranean diet, limit foods high in fat, sugar, and calories, eat slowly, pay attention to portion sizes, plan your meals ahead of time, (6) Dyslipidemia: Code(s): E78.5 - Hyperlipidemia, unspecified Plan: Reviewed recent fasting lipid profile with patient with levels at goal . Continue with atorvastatin 20 mg daily , in addition to adherence to low-cholesterol diet and regular exercise, at least 30 minutes 3 to 4 times a week. Advised patient to make healthy food choices, eat more fruits, vegetables, whole grains, wild caught fish and low-fat dairy. Limit amount of meat and fried or fatty food products, as well as processed foods and fast foods. Follow-up scheduled with repeat fasting lipid panel in 5 months. (7) Hypertension: Code(s): I10 - Essential (primary) hypertension Plan: Blood pressure at goal of less than 130/80. Continue with lisinopril 20 mg daily metoprolol succinate 200 mg daily, diltiazem HCL 300 mg daily and furosemide 20 mg daily. Reinforced importance of following a low sodium diet, getting regular exercise, and lowering stress levels. (8) Chronic atrial fibrillation: Comment: Followed by Dr Jayda Tejeda , currently on apixaban Code(s): I48.20 - Chronic atrial fibrillation, unspecified Plan: Currently on apixaban 2.5 mg 1 tablet twice a day, for followed by cardiology (9) History of ductal carcinoma in situ (DCIS) of breast: Comment: 2015 s/p mastectomy , followed by Dr Kelvin Kay in [place] Code(s): Z86.000 - Personal history of in-situ neoplasm of breast (10) Osteoarthritis: Code(s): M19.90 - Unspecified osteoarthritis, unspecified site (11) CKD (chronic kidney disease) stage 4, GFR 15-29 ml/min: Code(s): N18.4 - Chronic kidney disease, stage 4 (severe) (12) Diabetic nephropathy associated with type 2 diabetes mellitus: Code(s): E11.21 - Type 2 diabetes mellitus with diabetic nephropathy (13) Annual visit for general adult medical examination with abnormal findings: Code(s): Z00.01 - Encounter for general adult medical examination with abnormal findings Plan: Recent labs reviewed with patient.. Recommended dental visit every 6 months and regular eye exams, once a year for diabetes retinopathy screening. Take adequate calcium in diet and vitamin-D 3 at 2000 IU per cap once a day, in addition to weight-bearing exercises to help maintain good muscle tone and weight control. She is currently being followed by Cardiology for chronic atrial fibrillation, and by Nephrology for her chronic kidney disease. Advised to get her COVID booster and her flu shot for this year, currently up-to-date with her pneumo coccal vaccination and Shingrix vaccine. Orders: Orders Hemoglobin A1c 11/24/23 E11.42 - Type 2 diabetes mellitus with diabetic polyneuropathy, E11.3299 - Type 2 diabetes mellitus with mild nonproliferative diabetic retinopathy without macular edema, unspecified eye, E03.9 - Hypothyroidism, unspecified, I65.21 - Occlusion and stenosis of right carotid artery, E66.9 - Obesity, unspecified, E78.5 - Hyperlipidemia, unspecified, I10 - Essential (primary) hypertension, I48.20 - Chronic atrial fibrillation, unspecified, Z86.000 - Personal history of in-situ neoplasm of breast, M19.90 - Unspecified osteoarthritis, unspecified site, N18.4 - Chronic kidney disease, stage 4 (severe), E11.21 - Type 2 diabetes mellitus with diabetic nephropathy, Z78.0 - Asymptomatic menopausal state Lipid Panel 11/24/23 E11.42 - Type 2 diabetes mellitus with diabetic polyneuropathy, E11.3299 - Type 2 diabetes mellitus with mild nonproliferative diabetic retinopathy without macular edema, unspecified eye, E03.9 - Hypothyroidism, unspecified, I65.21 - Occlusion and stenosis of right carotid artery, E66.9 - Obesity, unspecified, E78.5 - Hyperlipidemia, unspecified, I10 - Essential (primary) hypertension, I48.20 - Chronic atrial fibrillation, unspecified, Z86.000 - Personal history of in-situ neoplasm of breast, M19.90 - Unspecified osteoarthritis, unspecified site, N18.4 - Chronic kidney disease, stage 4 (severe), E11.21 - Type 2 diabetes mellitus with diabetic nephropathy, Z78.0 - Asymptomatic menopausal state Vitamin D 25-OH Total 11/24/23 E11.42 - Type 2 diabetes mellitus with diabetic polyneuropathy, E11.3299 - Type 2 diabetes mellitus with mild nonproliferative diabetic retinopathy without macular edema, unspecified eye, E03.9 - Hypothyroidism, unspecified, I65.21 - Occlusion and stenosis of right carotid artery, E66.9 - Obesity, unspecified, E78.5 - Hyperlipidemia, unspecified, I10 - Essential (primary) hypertension, I48.20 - Chronic atrial fibrillation, unspecified, Z86.000 - Personal history of in-situ neoplasm of breast, M19.90 - Unspecified osteoarthritis, unspecified site, N18.4 - Chronic kidney disease, stage 4 (severe), E11.21 - Type 2 diabetes mellitus with diabetic nephropathy, Z78.0 - Asymptomatic menopausal state Thyroid Stimulating Hormone 11/24/23 E11.42 - Type 2 diabetes mellitus with diabetic polyneuropathy, E11.3299 - Type 2 diabetes mellitus with mild nonproliferative diabetic retinopathy without macular edema, unspecified eye, E03.9 - Hypothyroidism, unspecified, I65.21 - Occlusion and stenosis of right carotid artery, E66.9 - Obesity, unspecified, E78.5 - Hyperlipidemia, unspecified, I10 - Essential (primary) hypertension, I48.20 - Chronic atrial fibrillation, unspecified, Z86.000 - Personal history of in-situ neoplasm of breast, M19.90 - Unspecified osteoarthritis, unspecified site, N18.4 - Chronic kidney disease, stage 4 (severe), E11.21 - Type 2 diabetes mellitus with diabetic nephropathy, Z78.0 - Asymptomatic menopausal state Free T4 (Free Thyroxine) 11/24/23 E03.9 - Hypothyroidism, unspecified, E11.42 - Type 2 diabetes mellitus with diabetic polyneuropathy, E11.3299 - Type 2 diabetes mellitus with mild nonproliferative diabetic retinopathy without macular edema, unspecified eye, I65.21 - Occlusion and stenosis of right carotid artery, E66.9 - Obesity, unspecified, E78.5 - Hyperlipidemia, unspecified, I10 - Essential (primary) hypertension, I48.20 - Chronic atrial fibrillation, unspecified, Z86.000 - Personal history of in-situ neoplasm of breast, M19.90 - Unspecified osteoarthritis, unspecified site, N18.4 - Chronic kidney disease, stage 4 (severe), E11.21 - Type 2 diabetes mellitus with diabetic nephropathy, Z78.0 - Asymptomatic menopausal state Alanine Aminotransferase 11/24/23 E11.42 - Type 2 diabetes mellitus with diabetic polyneuropathy, E11.3299 - Type 2 diabetes mellitus with mild nonproliferative diabetic retinopathy without macular edema, unspecified eye, E03.9 - Hypothyroidism, unspecified, I65.21 - Occlusion and stenosis of right carotid artery, E66.9 - Obesity, unspecified, E78.5 - Hyperlipidemia, unspecified, I10 - Essential (primary) hypertension, I48.20 - Chronic atrial fibrillation, unspecified, Z86.000 - Personal history of in-situ neoplasm of breast, M19.90 - Unspecified osteoarthritis, unspecified site, N18.4 - Chronic kidney disease, stage 4 (severe), E11.21 - Type 2 diabetes mellitus with diabetic nephropathy, Z78.0 - Asymptomatic menopausal state Aspartate Amino Transferase 11/24/23 E11.42 - Type 2 diabetes mellitus with diabetic polyneuropathy, E11.3299 - Type 2 diabetes mellitus with mild nonproliferative diabetic retinopathy without macular edema, unspecified eye, E03.9 - Hypothyroidism, unspecified, I65.21 - Occlusion and stenosis of right carotid artery, E66.9 - Obesity, unspecified, E78.5 - Hyperlipidemia, unspecified, I10 - Essential (primary) hypertension, I48.20 - Chronic atrial fibrillation, unspecified, Z86.000 - Personal history of in-situ neoplasm of breast, M19.90 - Unspecified osteoarthritis, unspecified site, N18.4 - Chronic kidney disease, stage 4 (severe), E11.21 - Type 2 diabetes mellitus with diabetic nephropathy, Z78.0 - Asymptomatic menopausal state Medications: New [Diabetic shoes with inserts] As directed 1 ea 0RF NS E11.42 - Type 2 diabetes mellitus with diabetic polyneuropathy Coding Level of Care Code Est Pt Prev Care >65y(52661) Diagnoses Type 2 diabetes mellitus with diabetic polyneuropathy E11.42 Background diabetic retinopathy associated with type 2 diabetes mellitus E11.3299 Hypothyroidism E03.9 Carotid stenosis, right I65.21 Obesity (BMI 30-39.9) E66.9 Dyslipidemia E78.5 Hypertension I10 Chronic atrial fibrillation I48.20 History of ductal carcinoma in situ (DCIS) of breast Z86.000 Osteoarthritis M19.90 CKD (chronic kidney disease) stage 4, GFR 15-29 ml/min N18.4 Diabetic nephropathy associated with type 2 diabetes mellitus E11.21 Annual visit for general adult medical examination with abnormal findings Z00.01 Additional Codes Vital Signs *Quality* - Advance Care Planning discussion: On file, no changes ([id number]) Vital Signs *Quality* - Time spent: 1-15 minutes, on File ([id number])
[2023-06-11 09:25] VITALS: BP 142/78; PULSE 55; O2SAT 97; BMI 31.5
== END 2023-06-11 10:40 | disposition home or self-care (01) ==
PROVIDERS: Visit Provider Internal Medicine
DX: Z00.00 Encounter for general adult medical examination without abnormal findings (principal); J44.9 Chronic obstructive pulmonary disease, unspecified; F17.210 Nicotine dependence, cigarettes, uncomplicated; D72.819 Decreased white blood cell count, unspecified; N48.6 Induration penis plastica; R33.9 Retention of urine, unspecified; M20.002 Unspecified deformity of left finger(s)
CPT/HCPCS: 1123F; 99386; 99397

== ENCOUNTER 2023-11-15 13:24 | Outpatient (REF) | payer MEDICARE, SELFPAY ==
[2023-11-15 15:42] LABS: Anion Gap 12 (12-20); Blood Urea Nitrogen 33 mg/dL (9-16); Calcium 9.2 mg/dL (8.4-10.2); Carbon Dioxide 26 mmol/L (22-29); Chloride 108 mmol/L (96-108); Estimated Glomerular Filt Rate 28; Sodium 142 mmol/L (135-145)
== END 2023-11-15 13:25 | disposition home or self-care (01) ==
LOC: HO.HMGCLDS 13:24
PROVIDERS: PCP Internal Medicine; Visit Provider Internal Medicine Nephrology
DX: I13.0 Hypertensive heart and chronic kidney disease with heart failure and stage 1 through stage 4 chronic kidney disease, or unspecified chronic kidney disease (principal); I50.9 Heart failure, unspecified; N18.4 Chronic kidney disease, stage 4 (severe); D63.1 Anemia in chronic kidney disease
CPT/HCPCS: 36415; 80051; 82310; 82565; 84520

== ENCOUNTER 2023-12-09 09:24 | Outpatient (REF) | payer MEDICARE, SELFPAY ==
[2023-12-09 13:42] LABS: Estimated Average Glucose 166 mg/dL; Hemoglobin A1c % 7.4 % (<6.0)
[2023-12-09 14:07] LABS: Alanine Aminotransferase 11 U/L (0-31); Aspartate Amino Transferase 15 U/L (5-31); Cholesterol 129 mg/dL (<200); HDL Cholesterol 46 mg/dL (>40); LDL Cholesterol Calculated 72 mg/dL (<100); Triglycerides 57 mg/dL (<150)
[2023-12-09 14:21] LABS: Creatinine Urine 83.48 mg/dL; Microalbumin Urine < 5.0 mg/L
[2023-12-09 14:26] LABS: Free T4 (Free Thyroxine) 1.39 ng/dL (0.71-1.85); Thyroid Stimulating Hormone 0.23 uIU/mL (0.32-4.0); Vitamin D 25-OH Total 35.2 ng/mL (>30)
== END 2023-12-09 09:25 | disposition home or self-care (01) ==
LOC: HO.HMGCLDS 09:24
PROVIDERS: PCP Internal Medicine; Visit Provider Internal Medicine
DX: N18.4 Chronic kidney disease, stage 4 (severe) (principal); E11.42 Type 2 diabetes mellitus with diabetic polyneuropathy; E11.3299 Type 2 diabetes mellitus with mild nonproliferative diabetic retinopathy without macular edema, unspecified eye; E03.9 Hypothyroidism, unspecified; I65.21 Occlusion and stenosis of right carotid artery; E66.9 Obesity, unspecified; E78.5 Hyperlipidemia, unspecified; I10 Essential (primary) hypertension; I48.20 Chronic atrial fibrillation, unspecified; Z86.000 Personal history of in-situ neoplasm of breast; M19.90 Unspecified osteoarthritis, unspecified site; E11.21 Type 2 diabetes mellitus with diabetic nephropathy; Z78.0 Asymptomatic menopausal state
CPT/HCPCS: 36415; 80061; 82043; 82306; 82570; 83036; 84439; 84443; 84450; 84460

== ENCOUNTER 2023-12-11 10:15 | Outpatient (AMB) | payer MEDICARE, SELFPAY ==
[2023-12-11 11:12] VITALS: BP 140/75; PULSE 65; O2SAT 97; BMI 29.8
--- NOTE | 2023-12-11 11:12 | A.OFFPC_ITS ---
Vital Signs 12/11/23 11:12 Height 5 ft 2 in Weight 163 lb BMI 29.8 BP 140/75 H Blood Pressure Location Rt brachial Position Sitting Pulse 65 Pulse Source Pulse Oximeter Pulse Oximetry (%) 97 Oxygen Delivery Method Room Air Intake Visit Reasons: 6 month follow up Intake Note: Pt is here today for her 6mo. f/u Allergies No Known Allergies [No Known Allergies*] Allergy (Verified 12/11/23 11:52) Medication List - Last Reconciled 12/11/23 by Lindsay Mckeon MD apixaban 2.5 mg PO BID atorvastatin 20 mg PO DAILY blood sugar diagnostic As directed blood sugar diagnostic (Accu-Chek Karlie Plus test strips) As directed 4 times a day blood-glucose meter (Accu-Chek Karlie Plus Meter) As directed 4 times a day cholecalciferol (vitamin D3) 50 mcg PO DAILY [diabetic shoes As directed] [Diabetic shoes with inserts As directed NS] diltiazem HCl CD (Cartia XT) 300 mg PO DAILY furosemide 20 mg PO DAILY insulin lispro (Humalog KwikPen (U-100) Insulin) 4 - 6 units for meals, 2-3 units snacks subcut five times a day ; 90 days lancets As directed 4x per day levothyroxine 150 mcg PO DAILY lisinopril 20 mg PO DAILY metoprolol succinate ER 200 mg PO DAILY spironolactone 0.5mg qd Toujeo SoloStar U-300 Insulin (insulin glargine U-300 conc) 15 units (0.05 mL) subcut BEDTIME 90 days NS Tobacco use date assessed: 12/11/23 Fall risk assessment: No Falls in past year Last assessed Fall Risk: 12/11/23 Dental Screening Dental Screen Date: 12/11/23 Did you have a dental visit in the last 12 months?: No Was dental information given to patient?: Patient has dentist HPI 6 month follow up HPI Details 83-year-old Lady with hypertension, diab etes mellitus, hyperlipidemia and hypothyroidism, here today for follow-up. She has been feeling well, has been taking medications as directed, compliant with diet. Denies any chest pain or shortness of breath, no lightheadedness or frequent falls. 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 1. Little interest or pleasure in doing things: not at all 2. Feeling down, depressed, or hopeless: not at all 3. Trouble falling or staying asleep, or sleeping too much: not at all 4. Feeling tired or having little energy: not at all 5. Poor appetite or overeating: not at all 6. Feeling bad about yourself - or that you are a failure or have let yourself or your family down: not at all 7. Trouble concentrating on things, such as reading the newspaper or watching television: not at all 8. Moving or speaking so slowly that other people could have noticed. Or the opposite - being so fidgety or restless that you have been moving around a lot more than usual: not at all 9. Thoughts that you would be better off or of hurting yourself in some way: not at all Total score: 0 Depression Screening Interpretation: Negative Depression Screening Done: Yes 56815 - PHQ-9 Billing: Yes Source: Developed by Drs. Black Frank, Wendy Lugo, Ryan Pineda and colleagues, with an educational kathi from [employer]. Thrive Questionnaire Date Thrive assessed: 12/11/23 I am a: Patient What is your living situation today?: I have a steady place to live Within the past 12 months, did the food you bought not last and you didn't have the money to get more?: Never true Within the past 12 months, did you worry whether your food would run out before you got money to buy more?: Never true Do you have trouble paying for medicines?: No Do you have trouble getting transportation to medical appointments?: No Do you have trouble paying your heating and electricity bill?: No Do you have trouble taking care of your child, family member or friend?: No Do you have trouble with day-to-day activities such as bathing, preparing meals, shopping, managing finances, etc.?: No Are you currently unemployed and looking for a job?: No Are you interested in more education?: No THRIVE Score: 0 AUDIT C Alcohol Use Questionnaire (AUDIT-C) 1. How often do you have a drink containing alcohol?: Never Total Score: 0 LOC-7 AMB Questionnaire LOC-7 Date LOC - 7 assessed: 12/11/23 Feeling nervous, anxious, or on edge: 0 = Not at all Not being able to stop or control worryin = Not at all Worrying too much about different things: 0 = Not at all Trouble relaxin = Not at all Being so restless that it is hard to sit still: 0 = Not at all Becoming easily annoyed or irritable: 0 = Not at all Feeling afraid as if something awful might happen: 0 = Not at all Total LOC-7 score (0-4 normal; 5-9 mild; 10-14 moderate; 15-21 severe): 0 Source: Developed by Drs. Black Frank, Wendy Lugo, Ryan Pineda and colleagues, with an educational kathi from [employer]. Review of Systems Const Denies headache(s) and Denies weakness Eyes Denies change in vision ENT Denies dysphagia, Denies dizziness, Denies headache(s), Denies nasal congestion and Denies sore throat Card Denies palpitations and Denies dyspnea Resp Denies cough and Denies dyspnea GI Denies constipation, Denies dysphagia and Denies diarrhea Denies urinary frequency and Denies dysuria Musc Denies muscle cramps, Denies muscle weakness, Reports numbness (Occasional numbness in both feet) and Reports tingling (Occasional in both feet) Skin/Breast Details: Plantar callus present in both feet Neuro Denies dizziness, Denies headache(s), Reports numbness (Occasional numbness in both feet), Reports tingling (Occasional in both feet), Reports paresthesias and Denies weakness Psych Reports no additional complaints Endo Denies polydipsia, Denies polyuria and Denies palpitations Ra/Lymph Denies easy bruising Aller/Immun Reports no additional complaints Physical exam (Primary Care) Vital Signs: Last Vital Signs Pulse 65 12/11/23 11:12 Pulse Ox 97 12/11/23 11:12 Oxygen Delivery Method Room Air 12/11/23 11:12 BMI result Body Mass Index 29.8 Tobacco/Smoking Status: Tobacco use Status Tobacco use date assessed 12/11/23 12/11/23 11:13 Patient Tobacco Use Status Never used Tobacco 12/11/23 11:13 e-Cigarette/Vaping Use Never Used 12/11/23 11:13 PHQ-9: PHQ-9 Score PHQ-9: Total score 0 12/11/23 11:55 Depression Screening Interpretation: Negative Thrive Assessment: Date of Thrive Assessment Date Thrive assessed 12/11/23 12/11/23 11:28 Const General: no acute distress and alert Orientation/consciousness: patient oriented x3 Limitations: ambulation with walker HENMT Ears: external ears normal General nose exam: Normal external nose present and No nasal discharge present Mouth: oropharynx normal and moist mucous membranes Eyes General: appearance normal, both eyes and all related structures Neck Neck: Yes full ROM, Yes no lymphadenopathy and Yes supple Resp Effort & Inspection: normal respiratory effort and able to speak in complete sentences Auscultation: clear to auscultation bilaterally Cardio Rhythm: abnormal rhythm irregularly irregular GI Palpation (GI): Soft to palpation, nontender and no masses Auscultation: normal bowel sounds General: Yes no CVA tenderness Back/Spine/Pelvis Back: no CVA tenderness and No back tenderness Skin General skin exam: no rashes or lesions noted Neuro General: patient oriented x3, moves all extremities, no focal motor deficits and decrease sensation to monofilament (Both feet) Cranial nerves: Yes CN's II-XII intact bilaterally Cognition (Neuro): normal cognition Gait exam (Neuro): Assisted gait required Extrem Other: Plantar callus present in both feet General: Yes full ROM, Yes no joint enlargement, Yes no clubbing, cyanosis or edema and Yes no calf tenderness Psych Appearance: grossly normal and well kempt Mental Status: mental status grossly normal Speech and movement: Normal speech and movement present Affect: normal affect Attitude: cooperative Thought process: Normal thought process present Results Reviewed Results Reviewed: Laboratory Tests 12/09/23 10:04 Estimat Average Glucose 166 Hemoglobin A1c % 7.4 H Name: Elva Burkett Age/Sex: 83/F : 1940 Unit#: [id number] Attend Dr: Lindsay Mckeon MD Re12/09/23 Status: DEP REF Location: [facility] Disch: SPEC : [id number] ANIKA: 12/09/23 STATUS: COMP REQ : [id number] RECD: 12/09/[address]: Lindsay Mckeon MD COMP: 12/09/23 ENTERED: 12/09/[address]: ORDERED: AST, ALT, Lipid Panel, Vitamin D 25-OH, Free T4, TSH Test Result Flag Reference AST (GOT) 15 5-31 U/L ALT (GPT) 11 0-31 U/L Triglyceride 57 <150 mg/dL Desirable Triglyceride: less than 150 mg/dL Borderline High Triglyceride 150-199 mg/dL High Triglyceride: 200-499 mg/dL Very High Triglyceride: greater than or equal to 5OO mg/dL Cholesterol 129 <200 mg/dL Desirable Cholesterol: less than 200 mg/dL Borderline High Cholesterol: 200-239 mg/dL High Cholesterol: greater than 239 mg/dL LDL Calculated 72 <100 mg/dL Desirable LDL: less than 100 mg/dL Near Optimal/Above Optimal LDL: 110-129 mg/dL Borderline High LDL: 130-159 mg/dL High LDL: 160-189 mg/dL Very High LDL: greater than or equal to 190 mg/dL HDL 46 >40 mg/dL Desirable HDL: greater than 40 mg/dL Note: This HDL assay may give artificially low results in patients with liver disease. Vit D 25-OH Tot 35.2 >30 ng/mL Health Based Reference Values* < 20 ng/mL Deficient 20-30 ng/mL Insufficient > 30 ng/mL Sufficient *Paul KENNY. N Engl J Med. 2007;[id number] Care must be taken in interpreting Vitamin D results from different laboratories and methodologies. Published data demonstrated that results from patients undergoing hemodialysis may show a negative bias when tested with various automated 25-OH vitamin D assays when compared to LC-MS/MS. When testing samples from patients whose predominant form of Vitamin D is Vitamin D2, such as patients receiving Vitamin D2 supplementation, results that are subtherapeutic should be confirmed with another method such as LC-MS/MS. Free T4 1.39 0.71-1.85 ng/dL TSH 3rd Gen. 0.23 L 0.32-4.0 uIU/mL Assessment and Plan Assessment & Plan (1) Type 2 diabetes mellitus with diabetic polyneuropathy: Code(s): E11.42 - Type 2 diabetes mellitus with diabetic polyneuropathy Plan: Hemoglobin A1c at 7.3%, will continue on Toujeo 15 units at bedtime and insulin lispro (2) Hypothyroidism: Code(s): E03.9 - Hypothyroidism, unspecified Qualifiers: Hypothyroidism type: acquired Qualified Code(s): E03.9 - Hypothyroidism, unspecified Plan: Thyroid levels are within normal limits, continued on current dose of levothyroxine 150 mcg daily (3) Dyslipidemia: Code(s): E78.5 - Hyperlipidemia, unspecified Plan: Reviewed recent fasting lipid profile with patient with levels within normal limits . Continue atorvastatin 20 mg daily , in addition to adherence to low-cholesterol diet and regular exercise, at least 30 minutes 3 to 4 times a week. Advised patient to make healthy food choices, eat more fruits, vegetables, whole grains, wild caught fish and low-fat dairy. Limit amount of meat and fried or fatty food products, as well as processed foods and fast foods. (4) Hypertension: Code(s): I10 - Essential (primary) hypertension Qualifiers: Hypertension type: primary hypertension Qualified Code(s): I10 - Essential (primary) hypertension Plan: Blood pressure at goal of less than 130/80. Continue with current medication. Reinforced importance of following a low sodium diet, getting regular exercise, and lowering stress levels. (5) Chronic atrial fibrillation: Code(s): I48.20 - Chronic atrial fibrillation, unspecified Plan: Followed by Dr Jayda Tejeda , currently on apixaban Coding Level of Care Code Est Pt Level 4 (69675) Diagnoses Type 2 diabetes mellitus with diabetic polyneuropathy E11.42 Acquired hypothyroidism E03.9 Hypothyroidism type: acquired Dyslipidemia E78.5 Primary hypertension I10 Hypertension type: primary hypertension Chronic atrial fibrillation I48.20
== END 2023-12-11 11:47 | disposition home or self-care (01) ==
PROVIDERS: PCP Internal Medicine; Visit Provider Internal Medicine
DX: E11.42 Type 2 diabetes mellitus with diabetic polyneuropathy (principal); E03.9 Hypothyroidism, unspecified; E78.5 Hyperlipidemia, unspecified; I10 Essential (primary) hypertension; I48.20 Chronic atrial fibrillation, unspecified
CPT/HCPCS: 99214

== ENCOUNTER 2024-01-27 11:27 | Outpatient (AMB) | payer MEDICARE, SELFPAY ==
[2024-01-27 11:31] VITALS: BP 110/60; PULSE 90; O2SAT 97; BMI 29.6
--- NOTE | 2024-01-27 11:31 | A.OFFPC_ITS ---
Vital Signs 01/27/24 11:31 Height 5 ft 2 in Weight 162 lb BMI 29.6 BP 110/60 Blood Pressure Location Rt brachial Position Sitting Pulse 90 Pulse Source Pulse Oximeter Pulse Oximetry (%) 97 Oxygen Delivery Method Room Air Intake Visit Reasons: 6 Month F/U - see comments Intake Note: Pt is here today for her 6mo. f/u Allergies No Known Allergies [No Known Allergies*] Allergy (Verified 01/27/24 11:46) Medication List - Last Reconciled 01/27/24 by Lindsay Mckeon MD apixaban 2.5 mg PO BID atorvastatin 20 mg PO DAILY blood sugar diagnostic As directed blood sugar diagnostic (Accu-Chek Karlie Plus test strips) As directed 4 times a day blood-glucose meter (Accu-Chek Karlie Plus Meter) As directed 4 times a day cholecalciferol (vitamin D3) 50 mcg PO DAILY [diabetic shoes As directed] [Diabetic shoes with inserts As directed NS] diltiazem HCl CD (Cartia XT) 300 mg PO DAILY furosemide 20 mg PO DAILY insulin lispro (Humalog KwikPen (U-100) Insulin) 4 - 6 units for meals, 2-3 units snacks subcut five times a day ; 90 days lancets As directed 4x per day levothyroxine 150 mcg PO DAILY lisinopril 20 mg PO DAILY metoprolol succinate ER 200 mg PO DAILY spironolactone 0.5mg qd Toujeo SoloStar U-300 Insulin (insulin glargine U-300 conc) 15 units (0.05 mL) subcut BEDTIME 90 days NS Tobacco use date assessed: 01/27/24 Fall risk assessment: No Falls in past year Last assessed Fall Risk: 01/27/24 Dental Screening Dental Screen Date: 01/27/24 Did you have a dental visit in the last 12 months?: No Was dental information given to patient?: Patient has dentist HPI 6 Month F/U - see comments HPI Details 83-year-old Lady with chronic atrial fib rillation on apixaban 2.5 mg 1 tablet twice a day, hypertension, diabetes mellitus, hyperlipidemia and hypothyroidism, here today for follow-up. She has been feeling well, with latest hemoglobin A1c at 7 point 4%, thyroid and fasting lipid levels are within normal limits. Blood pressure staying well controlled with current treatment. She has an eye appointment with Noa at [facility] in a.m. for diabetes retinopathy screening.. Still lives at home, son is moving in with her with his , very active, gets around by bus and [employer]. 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 Depression Screening Interpretation: Negative Depression Screening Done: Yes Source: Developed by Drs. Black Frank, Wendy Lugo, Ryan Pineda and colleagues, with an educational kathi from [employer]. Thrive Questionnaire Date Thrive assessed: 12/11/23 LOC-7 AMB Questionnaire LOC-7 Date LOC - 7 assessed: 12/11/23 Source: Developed by Drs. Black Frank, Wendy Lugo, Ryan Pineda and colleagues, with an educational kathi from [employer]. Review of Systems Const Denies headache(s) and Denies weakness Eyes Details: Has an has an appointment [facility] [place] [facility] [place] Denies change in vision ENT Denies dizziness, Denies headache(s), Denies nasal congestion and Denies sore throat Card Denies palpitations and Denies dyspnea Resp Denies cough and Denies dyspnea GI Denies constipation Denies urinary frequency and Denies dysuria Musc Denies muscle cramps, Denies muscle weakness, Reports numbness (Occasional n umbness in both feet) and Reports tingling (Occasional in both feet) Skin/Breast Details: Plantar callus present in both feet Neuro Denies dizziness, Denies headache(s), Reports numbness (Occasional numbness in both feet), Reports tingling (Occasional in both feet), Reports paresthesias and Denies weakness Psych Reports no additional complaints Endo Denies polydipsia, Denies polyuria and Denies palpitations Ra/Lymph Denies easy bruising Aller/Immun Reports no additional complaints Physical exam (Primary Care) Vital Signs: Last Vital Signs Pulse 90 01/27/24 11:31 BP 110/60 01/27/24 11:31 Pulse Ox 97 01/27/24 11:31 Oxygen Delivery Method Room Air 01/27/24 11:31 BMI result Body Mass Index 29.6 Tobacco/Smoking Status: Tobacco use Status Tobacco use date assessed 01/27/24 01/27/24 11:39 Patient Tobacco Use Status Never used Tobacco 01/27/24 11:33 e-Cigarette/Vaping Use Never Used 01/27/24 11:33 Depression Screening Interpretation: Negative Thrive Assessment: Date of Thrive Assessment Date Thrive assessed 12/11/23 01/27/24 11:33 Const General: no acute distress and alert Orientation/consciousness: patient oriented x3 Limitations: ambulation with cane HENMT Ears: external ears normal General nose exam: Normal external nose present and No nasal discharge present Mouth: oropharynx normal and moist mucous membranes Eyes General: appearance normal, both eyes and all related structures Neck Neck: Yes full ROM, Yes no lymphadenopathy and Yes supple Resp Effort & Inspection: normal respiratory effort and able to speak in complete sentences Auscultation: clear to auscultation bilaterally Cardio Rhythm: abnormal rhythm irregularly irregular GI Palpation (GI): Soft to palpation, nontender and no masses Auscultation: normal bowel sounds General: Yes no CVA tenderness Back/Spine/Pelvis Back: no CVA tenderness and No back tenderness Skin General skin exam: no rashes or lesions noted Neuro General: patient oriented x3, moves all extremities, no focal motor deficits and decrease sensation to monofilament (Both feet) Cranial nerves: Yes CN's II-XII intact bilaterally Cognition (Neuro): normal cognition Gait exam (Neuro): Assisted gait required Extrem Other: Plantar callus present in both feet General: Yes full ROM, Yes no joint enlargement, Yes no clubbing, cyanosis or edema and Yes no calf tenderness Psych Appearance: grossly normal and well kempt Mental Status: mental status grossly normal Speech and movement: Normal speech and movement present Affect: normal affect Attitude: cooperative Thought process: Normal thought process present Results Reviewed Results Reviewed: Name: Elva Burkett Age/Sex: 83/F : 1940 Unit#: [id number] Attend Dr: Lindsay Mckeon MD Re12/09/23 Status: DEP REF Location: [facility] Disch: SPEC : [id number] ANIKA: 12/09/23 STATUS: COMP REQ : [id number] RECD: 12/09/[address]: Lindsay Mckeon MD COMP: 12/09/23 ENTERED: 12/09/[address]: ORDERED: Hgb A1c Test Result Flag Reference A1c % 7.4 H <6.0 % Hemoglobin A1C Reference Range Adults: 4.8 - 6.0 % Non diabetic: < 6.0 % Goal: < 7.0 % Additional Action Suggested: > 8.0 % Note: Hemoglobin A1c results are invalid for patients with abnormal amounts of HbF. Blood transfusions may impact the HbA1c concentration in the patient Name: Elva Burkett Age/Sex: 83/F : 1940 Unit#: [id number] Attend Dr: Lindsay Mckeon MD Re12/09/23 Status: DEP REF Location: [facility] Disch: SPEC : [id number] ANIKA: 12/09/23 STATUS: COMP REQ : [id number] RECD: 12/09/[address]: Lindsay Mckeon MD COMP: 12/09/23 ENTERED: 12/09/231004 [facility] DR: ORDERED: AST, ALT, Lipid Panel, Vitamin D 25-OH, Free T4, TSH Test Result Flag Reference AST (GOT) 15 5-31 U/L ALT (GPT) 11 0-31 U/L Triglyceride 57 <150 mg/dL Desirable Triglyceride: less than 150 mg/dL Borderline High Triglyceride 150-199 mg/dL High Triglyceride: 200-499 mg/dL Very High Triglyceride: greater than or equal to 5OO mg/dL Cholesterol 129 <200 mg/dL Desirable Cholesterol: less than 200 mg/dL Borderline High Cholesterol: 200-239 mg/dL High Cholesterol: greater than 239 mg/dL LDL Calculated 72 <100 mg/dL Desirable LDL: less than 100 mg/dL Near Optimal/Above Optimal LDL: 110-129 mg/dL Borderline High LDL: 130-159 mg/dL High LDL: 160-189 mg/dL Very High LDL: greater than or equal to 190 mg/dL HDL 46 >40 mg/dL Desirable HDL: greater than 40 mg/dL Note: This HDL assay may give artificially low results in patients with liver disease. Vit D 25-OH Tot 35.2 >30 ng/mL Health Based Reference Values* < 20 ng/mL Deficient 20-30 ng/mL Insufficient > 30 ng/mL Sufficient *Paul KENNY. N Engl J Med. 2007;[id number] Care must be taken in interpreting Vitamin D results from different laboratories and methodologies. Published data demonstrated that results from patients undergoing hemodialysis may show a negative bias when tested with various automated 25-OH vitamin D assays when compared to LC-MS/MS. When testing samples from patients whose predominant form of Vitamin D is Vitamin D2, such as patients receiving Vitamin D2 supplementation, results that are subtherapeutic should be confirmed with another method such as LC-MS/MS. Free T4 1.39 0.71-1.85 ng/dL TSH 3rd Gen. 0.23 L 0.32-4.0 uIU/mL TSH 3rd Generation ([facility]) sample. Est. Avg. Gluc 166 mg/dL eAG = Estimated average glucose which is %A1C expressed as average glucose, using the formula of the [id number] Average Glucose study (ADAG), Diabetes Care, Vol.31,#8, 2007 Assessment and Plan Assessment & Plan (1) Type 2 diabetes mellitus with diabetic polyneuropathy: Code(s): E11.42 - Type 2 diabetes mellitus with diabetic polyneuropathy Plan: Recent lab results reviewed with patient, with sugar and hemoglobin A1c higher than last check, continued on Toujeo 15 units at bedtime, and Humalog 3 times a day before meals. continue to check fasting blood sugar at home, maintain log and bring to next appointment for review. Reinforced diabetic diet and regular exercise with patient. Counseled regarding importance of yearly diabetes retinopathy screening, has an appointment in a.m. with Monique Montanez at [facility]. Patient advised to inspect feet daily, for any signs of injury, callus or infection. Compliance with diet and regular exercise again stressed. Blood pressure goal is less than 130/80, goal LDL is less than 100 and goal hemoglobin A1c is less than 7% follow-up appointment made in--5-months, after fasting labs done. (2) Hypothyroidism: Code(s): E03.9 - Hypothyroidism, unspecified Qualifiers: Hypothyroidism type: acquired Qualified Code(s): E03.9 - Hypothyroidism, unspecified Plan: Thyroid levels are within normal limits, continue with levothyroxine 150 mcg once a day in a.m. (3) Dyslipidemia: Code(s): E78.5 - Hyperlipidemia, unspecified Plan: Recent fasting lipids are within normal limits, continued atorvastatin 20 mg daily (4) Hypertension: Code(s): I10 - Essential (primary) hypertension Qualifiers: Hypertension type: primary hypertension Qualified Code(s): I10 - Essential (primary) hypertension Plan: Blood pressure at goal of less than 130/80. Continue with current medication. Reinforced importance of following a low sodium diet, getting regular exercise, and lowering stress levels. (5) CKD (chronic kidney disease) stage 4, GFR 15-29 ml/min: Code(s): N18.4 - Chronic kidney disease, stage 4 (severe) Plan: Currently followed by Nephrology, continued on diltiazem, furosemide and lisinopril , spironolactone. Continued avoidance of NSAIDs (6) Vitamin D deficiency: Code(s): E55.9 - Vitamin D deficiency, unspecified Plan: Check vitamin-D level in 5 months, continue taking [id number] vitamin-D 3 at 2000 units daily Orders: Orders Alanine Aminotransferase 06/27/24 E03.9 - Hypothyroidism, unspecified, E11.42 - Type 2 diabetes mellitus with diabetic polyneuropathy, E66.9 - Obesity, unspecified, E78.5 - Hyperlipidemia, unspecified, I10 - Essential (primary) hypertension Aspartate Amino Transferase 06/27/24 E03.9 - Hypothyroidism, unspecified, E11.42 - Type 2 diabetes mellitus with diabetic polyneuropathy, E66.9 - Obesity, unspecified, E78.5 - Hyperlipidemia, unspecified, I10 - Essential (primary) hypertension Lipid Panel 06/27/24 E03.9 - Hypothyroidism, unspecified, E11.42 - Type 2 diabetes mellitus with diabetic polyneuropathy, E66.9 - Obesity, unspecified, E78.5 - Hyperlipidemia, unspecified, I10 - Essential (primary) hypertension Hemoglobin A1c 06/27/24 E03.9 - Hypothyroidism, unspecified, E11.42 - Type 2 diabetes mellitus with diabetic polyneuropathy, E66.9 - Obesity, unspecified, E78.5 - Hyperlipidemia, unspecified, I10 - Essential (primary) hypertension Basic Metabolic Panel Fasting 06/27/24 E03.9 - Hypothyroidism, unspecified, E11.42 - Type 2 diabetes mellitus with diabetic polyneuropathy, E66.9 - Obesity, unspecified, E78.5 - Hyperlipidemia, unspecified, I10 - Essential (primary) hypertension Thyroid Stimulating Hormone 06/27/24 E03.9 - Hypothyroidism, unspecified, E11.42 - Type 2 diabetes mellitus with diabetic polyneuropathy, E66.9 - Obesity, unspecified, E78.5 - Hyperlipidemia, unspecified, I10 - Essential (primary) hypertension Free T4 (Free Thyroxine) 06/27/24 E03.9 - Hypothyroidism, unspecified, E11.42 - Type 2 diabetes mellitus with diabetic polyneuropathy, E66.9 - Obesity, unspecified, E78.5 - Hyperlipidemia, unspecified, I10 - Essential (primary) hypertension Coding Level of Care Code Est Pt Level 4 (99140) Diagnoses Type 2 diabetes mellitus with diabetic polyneuropathy E11.42 Acquired hypothyroidism E03.9 Hypothyroidism type: acquired Dyslipidemia E78.5 Primary hypertension I10 Hypertension type: primary hypertension CKD (chronic kidney disease) stage 4, GFR 15-29 ml/min N18.4 Vitamin D deficiency E55.9
== END 2024-01-27 13:43 | disposition home or self-care (01) ==
PROVIDERS: PCP Internal Medicine; Visit Provider Internal Medicine
DX: I12.9 Hypertensive chronic kidney disease with stage 1 through stage 4 chronic kidney disease, or unspecified chronic kidney disease (principal); E11.42 Type 2 diabetes mellitus with diabetic polyneuropathy; N18.4 Chronic kidney disease, stage 4 (severe); E03.9 Hypothyroidism, unspecified; E78.5 Hyperlipidemia, unspecified; E55.9 Vitamin D deficiency, unspecified
CPT/HCPCS: 99214

== ENCOUNTER 2024-04-23 09:00 | Outpatient (REF) | payer MEDICARE, SELFPAY ==
[2024-04-23 10:07] LABS: MANUAL DIFF FLAG NO
[2024-04-23 10:11] LABS: Basophils Absolute Auto 0.1 X10*3/uL (0.0-0.2); Basophils Percent Auto 0.8 % (0-2); Eosinophils Absolute Auto 0.3 X10*3/uL (0.0-0.4); Eosinophils Percent Auto 3.6 % (0-4); Hematocrit 36.8 % (37.0-47.0); Hemoglobin 12.1 g/dl (12.0-16.0); Imm Gran Abs Auto 0.03 X10*3/uL (0.00-0.03); Imm Gran Pct Auto 0.3 % (0.0-0.4); Lymphocytes Absolute Auto 0.9 X10*3/uL (1.2-4.9); Lymphocytes Percent Auto 9.8 % (20-40); Mean Corpuscular HGB Conc 32.9 g/dl (31.0-35.0); Mean Corpuscular Hemoglobin 32.2 pg (27.0-33.0); Mean Corpuscular Volume 97.9 fL (80.0-98.0); Mean Platelet Volume 10.5 fL (9.4-12.3); Monocytes Absolute Auto 0.6 X10*3/uL (0.1-1.2); Monocytes Percent Auto 6.9 % (2-11); Neutrophils Absolute Auto 7.1 x10*3/uL (2.0-8.3); Neutrophils Percent Auto 78.6 % (45-73); Platelet Count 262 X10*3/uL (160-400); Red Blood Count 3.76 X10*6/uL (4.20-5.50); Red Cell Distribution Width 12.8 % (11.0-16.0); White Blood Count 9.1 X10*3/uL (4.8-10.8)
[2024-04-23 10:59] LABS: Creatinine Urine 43.68 mg/dL; Protein/Creatinine Ratio, Ur 0.43 (<0.2); Total Protein Urine Random 19 mg/dL (<12)
[2024-04-23 11:05] LABS: Alanine Aminotransferase 11 U/L (0-31); Albumin Level 3.8 g/dL (3.5-5.0); Alkaline Phosphatase 84 U/L (39-117); Anion Gap 14 (12-20); Aspartate Amino Transferase 13 U/L (5-31); Bilirubin Total 0.7 mg/dL (0.0-1.0); Blood Urea Nitrogen 56 mg/dL (9-16); Calcium 9.2 mg/dL (8.4-10.2); Carbon Dioxide 24 mmol/L (22-29); Chloride 104 mmol/L (96-108); Estimated Glomerular Filt Rate 19; Glucose Random 250 mg/dL (60-115); Magnesium 2.1 mg/dL (1.6-2.6); Parathyroid Hormone Intact 127.4 pg/mL (8.7-77.1); Phosphorus 3.8 mg/dL (2.7-4.5); Potassium 4.4 mmol/L (3.3-5.1); Sodium 138 mmol/L (135-145); Total Protein 7.2 g/dL (6.5-8.0); Uric Acid 9.3 mg/dL (2.4-5.7)
[2024-04-23 11:21] LABS: Vitamin D 25-OH Total 52.4 ng/mL (>30)
== END 2024-04-23 09:01 | disposition home or self-care (01) ==
LOC: HO.HMGCLDS 09:00
PROVIDERS: PCP Internal Medicine; Visit Provider Internal Medicine Nephrology
DX: N18.4 Chronic kidney disease, stage 4 (severe) (principal); D63.1 Anemia in chronic kidney disease; N17.8 Other acute kidney failure; N28.1 Cyst of kidney, acquired; I10 Essential (primary) hypertension; N18.9 Chronic kidney disease, unspecified; I50.9 Heart failure, unspecified; I13.0 Hypertensive heart and chronic kidney disease with heart failure and stage 1 through stage 4 chronic kidney disease, or unspecified chronic kidney disease; E11.8 Type 2 diabetes mellitus with unspecified complications
CPT/HCPCS: 36415; 80053; 82306; 82570; 83735; 83970; 84100; 84156; 84550; 85025

== ENCOUNTER 2024-06-11 09:14 | Outpatient (REF) | payer MEDICARE, SELFPAY ==
[2024-06-11 10:55] LABS: Estimated Average Glucose 186 mg/dL; Hemoglobin A1C 346.3324 umol/L; Hemoglobin A1c % 8.1 % (<6.0); Total Hemoglobin (HGBA1C) 5285.6193 umol/L
[2024-06-11 11:01] LABS: Alanine Aminotransferase 11 U/L (0-31); Anion Gap 13 (12-20); Aspartate Amino Transferase 19 U/L (5-31); Blood Urea Nitrogen 63 mg/dL (9-16); Calcium 8.8 mg/dL (8.4-10.2); Carbon Dioxide 23 mmol/L (22-29); Chloride 105 mmol/L (96-108); Cholesterol 121 mg/dL (<200); Estimated Glomerular Filt Rate 20; Free T4 (Free Thyroxine) 1.71 ng/dL (0.71-1.85); Glucose Fasting 199 mg/dL (60-99); HDL Cholesterol 38 mg/dL (>40); LDL Cholesterol Calculated 69 mg/dL (<100); Potassium 4.2 mmol/L (3.3-5.1); Sodium 137 mmol/L (135-145); Thyroid Stimulating Hormone 0.13 uIU/mL (0.32-4.0); Triglycerides 72 mg/dL (<150)
== END 2024-06-11 09:15 | disposition home or self-care (01) ==
LOC: HO.HMGCLDS 09:14
PROVIDERS: PCP Internal Medicine; Visit Provider Internal Medicine
DX: E11.42 Type 2 diabetes mellitus with diabetic polyneuropathy (principal); E03.9 Hypothyroidism, unspecified; I10 Essential (primary) hypertension; E78.5 Hyperlipidemia, unspecified; E66.9 Obesity, unspecified
CPT/HCPCS: 36415; 80048; 80061; 83036; 84439; 84443; 84450; 84460

== ENCOUNTER 2024-06-15 12:22 | Outpatient (AMB) | payer MEDICARE, SELFPAY ==
--- NOTE | 2024-06-15 13:03 | A.OFFPC_ITS ---
Vital Signs 06/15/24 13:04 Height 5 ft 2 in Weight 155 lb BMI 28.3 BP 100/62 Blood Pressure Location Rt brachial Position Sitting Pulse 48 L Pulse Oximetry (%) 99 Oxygen Delivery Method Room Air Intake Visit Reasons: Annual Physical - see comments Intake Note: Pt is here today for her PE: last mammogram 11/14/22, bone density scan 11/13/22, colonoscopy 10/20/23 Allergies No Known Allergies [No Known Allergies*] Allergy (Verified 06/19/24 01:19) Medication List - Last Reconciled 06/15/24 by Lindsay Mckeon MD apixaban 2.5 mg PO BID atorvastatin 20 mg PO DAILY blood sugar diagnostic As directed blood sugar diagnostic (Accu-Chek Karlie Plus test strips) As directed 4 times a day blood-glucose meter (Accu-Chek Karlie Plus Meter) As directed 4 times a day cholecalciferol (vitamin D3) 50 mcg PO DAILY [diabetic shoes As directed] [Diabetic shoes with inserts As directed NS] diltiazem HCl CD (Cartia XT) 300 mg PO DAILY furosemide 20 mg PO DAILY insulin glargine U-300 conc (Toujeo SoloStar U-300 Insulin) 17 units subcut BEDTIME insulin lispro (Humalog KwikPen (U-100) Insulin) 4 - 6 units for meals, 2-3 units snacks subcut five times a day ; 90 days lancets As directed 4x per day levothyroxine 150 mcg PO DAILY lisinopril 20 mg PO DAILY metoprolol succinate ER 200 mg PO DAILY spironolactone 0.5mg qd Tobacco use date assessed: 06/15/24 Fall risk assessment: No Falls in past year Last assessed Fall Risk: 06/15/24 Dental Screening Dental Screen Date: 06/15/24 Did you have a dental visit in the last 12 months?: No Did you have a dental problem in the last 6 months where you did not have access to dental care?: No Was dental information given to patient?: Patient has dentist HPI Annual Physical - see comments HPI Details The patient is an 83-year-old female presenting for her physical exam. She has Chronic Kidney Disease Stage 4 with Hypertension, Chronic Atrial fibrillation, and Diabetes mellitus type 2. She has been followed by Cardiology for chronic atrial fibrillation and is currently on Apixaban 2.5 mg taken twice daily and metoprolol succinate ER 200 mg daily. Blood pressure stable controlled on present medications. Diabetes control slipping, with hemoglobin A1c increasing from 7.4-8.1% on latest blood draw, adjusted Toujeo was from 17 to 20 units at night . She has osteoporosis seen on last bone density scan done 11/14/2022, declined treatment, no history of fracture. Her thyroid function levels showed TSH level mildly depressed at 0.113 and a normal T4 level at 1.7. She has been feeling well, with no complaints at present time. She is up-to-date with her screening colonoscopy done by Dr. Spivey earlier this year, with removal of several polyps some of which are tubular and some of which are hyperplastic polyps. As per GI, no further colonoscopies indicated. 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 Background diabetic retinopathy associated with type 2 diabetes mellitus Osteoarthritis Hypothyroidism Carotid stenosis, right Obesity (BMI 30-39.9) Dyslipidemia Hypertension CKD (chronic kidney disease) stage 4, GFR 15-29 ml/min Diabetic nephropathy associated with type 2 diabetes mellitus senior care (current) use of insulin Vitamin D deficiency Surgical History Hx of left mastectomy Hx of tubal ligation Hx of lumpectomy Hx of hysterectomy Family History Father Coronary artery disease Diabetes mellitus Mother Diabetes mellitus Social History Household Members: None Housing: House Alcohol intake: never Patient Tobacco Use Status: Never used Tobacco e-Cigarette/Vaping Use: Never Used Current occupational status: retired Cognitive needs: No Hearing needs: No Vision needs: Yes Questionnaire Thrive Questionnaire Date Thrive assessed: 12/11/23 LOC-7 AMB Questionnaire LOC-7 Date LOC - 7 assessed: 12/11/23 Source: Developed by Drs. Black Frank, Wendy Lugo, Ryan Pineda and colleagues, with an educational kathi from [employer]. Review of Systems Const Denies fatigue, Denies headache(s), Denies lethargy and Denies weakness Eyes Denies change in vision ENT Denies dizziness, Denies headache(s), Denies nasal congestion and Denies sore throat Card Denies chest pain, Denies lightheadedness, Denies palpitations and Denies dyspnea Resp Denies cough and Denies dyspnea GI Denies constipation Denies urinary frequency and Denies dysuria Musc Denies muscle cramps, Denies muscle weakness, Reports numbness (Occasional numbness in both feet) and Reports tingling (Occasional in both feet) Skin/Breast Details: Plantar callus present in both feet Neuro Denies dizziness, Denies headache(s), Reports numbness (Occasional numbness in both feet), Reports tingling (Occasional in both feet), Reports paresthesias and Denies weakness Psych Reports no additional complaints Endo Denies fatigue, Denies polydipsia, Denies polyuria and Denies palpitations Ra/Lymph Denies easy bruising Aller/Immun Reports no additional complaints Physical exam (Primary Care) Vital Signs: Last Vital Signs Pulse 48 L 06/15/24 13:04 BP 100/62 06/15/24 13:04 Pulse Ox 99 06/15/24 13:04 Oxygen Delivery Method Room Air 06/15/24 13:04 BMI result Body Mass Index 28.3 Tobacco/Smoking Status: Tobacco use Status Tobacco use date assessed 06/15/24 06/15/24 13:05 Patient Tobacco Use Status Never used Tobacco 06/15/24 13:03 e-Cigarette/Vaping Use Never Used 06/15/24 13:03 Thrive Assessment: Date of Thrive Assessment Date Thrive assessed 12/11/23 06/15/24 13:03 Const General: no acute distress and alert Orientation/consciousness: patient oriented x3 Limitations: ambulation with cane HENMT Ears: external ears normal General nose exam: Normal external nose present and No nasal discharge present Mouth: oropharynx normal and moist mucous membranes Eyes General: appearance normal, both eyes and all related structures Neck Neck: Yes full ROM, Yes no lymphadenopathy and Yes supple Resp Effort & Inspection: normal respiratory effort and able to speak in complete sentences Auscultation: clear to auscultation bilaterally Cardio Rhythm: abnormal rhythm irregularly irregular GI Palpation (GI): Soft to palpation, nontender and no masses Auscultation: normal bowel sounds General: Yes no CVA tenderness Back/Spine/Pelvis Back: no CVA tenderness and No back tenderness Skin General skin exam: no rashes or lesions noted Neuro General: patient oriented x3, moves all extremities, no focal motor deficits and decrease sensation to monofilament (Both feet) Cranial nerves: Yes CN's II-XII intact bilaterally Cognition (Neuro): normal cognition Gait exam (Neuro): Assisted gait required Extrem Other: Plantar callus present in both feet General: Yes full ROM, Yes no joint enlargement, Yes no clubbing, cyanosis or edema and Yes no calf tenderness Psych Appearance: grossly normal and well kempt Mental Status: mental status grossly normal Speech and movement: Normal speech and movement present Affect: normal affect Attitude: cooperative Thought process: Normal thought process present Results Reviewed Results Reviewed: Name: Elva Burkett Age/Sex: 83/F : 1940 Unit#: [id number] Attend Dr: Lindsay Mckeon MD Re06/11/24 Status: DEP [facility] Disch: SPEC : [id number] ANIKA: 06/11/24 STATUS: COMP REQ : [id number] RECD: 06/11/[address]: Lindsay Mckeon MD COMP: 06/11/24 ENTERED: 06/11/24 [facility] DR: ORDERED: Met Prof Fast, AST, ALT, Lipid Panel, Free T4, TSH Test Result Flag Reference Sodium 137 135-145 mmol/L Potassium 4.2 3.3-5.1 mmol/L CL 105 96-108 mmol/L CO2 23 22-29 mmol/L Gap 13 12-20 BUN 63 H 9-16 mg/dL Creat 2.37 H 0.5-1.4 mg/dL eGFR 20 Chronic Kidney Disease: Estimated GFR < 60 mL/min/1.73m2 Severe Kidney Disease: Estimated GFR < 15 mL/min/1.73m2 FBS 199 H 60-99 mg/dL A fasting glucose of 126 mg/dl or greater on more than one occasion is considered diagnostic of diabetes. CA 8.8 8.4-10.2 mg/dL AST (GOT) 19 5-31 U/L ALT (GPT) 11 0-31 U/L Triglyceride 72 <150 mg/dL Desirable Triglyceride: less than 150 mg/dL Borderline High Triglyceride 150-199 mg/dL High Triglyceride: 200-499 mg/dL Very High Triglyceride: greater than or equal to 5OO mg/dL Cholesterol 121 <200 mg/dL Desirable Cholesterol: less than 200 mg/dL Borderline High Cholesterol: 200-239 mg/dL High Cholesterol: greater than 239 mg/dL LDL Calculated 69 <100 mg/dL Desirable LDL: less than 100 mg/dL Near Optimal/Above Optimal LDL: 110-129 mg/dL Borderline High LDL: 130-159 mg/dL High LDL: 160-189 mg/dL Very High LDL: greater than or equal to 190 mg/dL HDL 38 L >40 mg/dL Desirable HDL: greater than 40 mg/dL Note: This HDL assay may give artificially low results in patients with liver disease. Free T4 1.71 0.71-1.85 ng/dL TSH 3rd Gen. 0.13 L 0.32-4.0 uIU/mL TSH 3rd Generation ([facility]) Laboratory Tests 06/11/24 09:19 Estimat Average Glucose 186 Hemoglobin A1c % 8.1 H Coding Level of Care Code Est Pt Prev Care >65y(74310) Diagnoses Annual visit for general adult medical examination with abnormal findings Z00. Chronic atrial fibrillation I48.20 Type 2 diabetes mellitus with diabetic polyneuropathy E11.42 Background diabetic retinopathy associated with type 2 diabetes mellitus E11.3299 Osteoarthritis M19.90 Acquired hypothyroidism E03.9 Hypothyroidism type: acquired Dyslipidemia E78.5 CKD (chronic kidney disease) stage 4, GFR 15-29 ml/min N18.4 Sinus bradycardia R00.1 Assessment & Plan Assessment & Plan (1) Annual visit for general adult medical examination with abnormal findings: Code(s): Z00.01 - Encounter for general adult medical examination with abnormal findings Plan: Latest fasting lab results reviewed with patient . Recommended annual eye exams.. No further screening colonoscopies indicated, patient also does not get any mammograms and does not want to have any treatment were osteoporosis. Up-to-date with her pneumococcal vaccination and shingles vaccine, reminded to get her COVID booster and flu vaccine this year (2) Chronic atrial fibrillation: Code(s): I48.20 - Chronic atrial fibrillation, unspecified Category: Medical Plan: Currently on apixaban, and metoprolol succinate. Followed by cardiology (3) Type 2 diabetes mellitus with diabetic polyneuropathy: Code(s): E11.42 - Type 2 diabetes mellitus with diabetic polyneuropathy Category: Medical Plan: adjusted Toujeo was from 17 to 20 units at night, continue (4) Background diabetic retinopathy associated with type 2 diabetes mellitus: Code(s): E11.3299 - Type 2 diabetes mellitus with mild nonproliferative diabetic retinopathy without macular edema, unspecified eye Category: Medical Plan: Reminded to keep eye appointment with [facility] yearly, strict control blood sugar very important in doing further progression of retinopathy (5) Osteoarthritis: Code(s): M19.90 - Unspecified osteoarthritis, unspecified site Category: Medical Plan: Take Tylenol as needed every 6 hours for pain. Avoidance of NSAIDs (6) Hypothyroidism: Code(s): E03.9 - Hypothyroidism, unspecified Category: Medical Qualifiers: Hypothyroidism type: acquired Qualified Code(s): E03.9 - Hypothyr oidism, unspecified Plan: Reviewed latest thyroid level results with patient, will continue on levothyroxine at 150 mcg daily in a.m. an hour before breakfast (7) Dyslipidemia: Code(s): E78.5 - Hyperlipidemia, unspecified Category: Medical Plan: Reviewed recent fasting lipid profile with patient with levels within normal limits except for low good cholesterol level. . Continue with atorvastatin 20 mg daily , in addition to adherence to low-cholesterol diet. Advised patient to make healthy food choices, eat more fruits, vegetables, whole grains, wild caught fish and low-fat dairy. Limit amount of meat and fried or fatty food products, as well as processed foods and fast foods. Follow-up scheduled with repeat fasting lipid panel in 3 months. (8) CKD (chronic kidney disease) stage 4, GFR 15-29 ml/min: Code(s): N18.4 - Chronic kidney disease, stage 4 (severe) Category: Medical Plan: Stable renal function (9) Sinus bradycardia: Code(s): R00.1 - Bradycardia, unspecified Category: Medical Plan: Noted to have a slow heart rate by pulse oximetry during the visit, EKG showed presence of sinus bradycardia with 50 beats per minute, patient however currently asymptomatic, will continue to monitor Orders: Orders Hemoglobin A1c 08/28/24 E11.3299 - Type 2 diabetes mellitus with mild nonproliferative diabetic retinopathy without macular edema, unspecified eye, E55.9 - Vitamin D deficiency, unspecified, E78.5 - Hyperlipidemia, unspecified Alanine Aminotransferase 08/28/24 E11.3298 - Type 2 diabetes mellitus with mild nonproliferative diabetic retinopathy without macular edema, unspecified eye, E55.9 - Vitamin D deficiency, unspecified, E78.5 - Hyperlipidemia, unspecified Aspartate Amino Transferase 08/28/24 E11.3298 - Type 2 diabetes mellitus with mild nonproliferative diabetic retinopathy without macular edema, unspecified eye, E55.9 - Vitamin D deficiency, unspecified, E78.5 - Hyperlipidemia, un specified Lipid Panel 08/28/24 E11.3298 - Type 2 diabetes mellitus with mild nonproliferative diabetic retinopathy without macular edema, unspecified eye, E55.9 - Vitamin D deficiency, unspecified, E78.5 - Hyperlipidemia, unspecified Free T4 (Free Thyroxine) 08/28/24 E03.9 - Hypothyroidism, unspecified Vitamin D 25-OH Total 08/28/24 E11.3298 - Type 2 diabetes mellitus with mild nonproliferative diabetic retinopathy without macular edema, unspecified eye, E55.9 - Vitamin D deficiency, unspecified, E78.5 - Hyperlipidemia, unspecified Thyroid Stimulating Hormone 08/28/24 E03.9 - Hypothyroidism, unspecified Medications: Changed From Toujeo SoloStar U-300 Insulin (insulin glargine U-300 conc) 15 units (0.05 mL) subcut BEDTIME 90 days 4.5 mL 1RF NS E11.65 - Type 2 diabetes mellitus with hyperglycemia To insulin glargine U-300 conc (Toujeo SoloStar U-300 Insulin) 17 units subcut BEDTIME E11.65 - Type 2 diabetes mellitus with hyperglycemia
[2024-06-15 13:04] VITALS: BP 100/62; PULSE 48; O2SAT 99; BMI 28.3
== END 2024-06-15 14:38 | disposition home or self-care (01) ==
PROVIDERS: PCP Internal Medicine; Visit Provider Internal Medicine
DX: Z00.00 Encounter for general adult medical examination without abnormal findings (principal); I48.20 Chronic atrial fibrillation, unspecified; E11.42 Type 2 diabetes mellitus with diabetic polyneuropathy; E11.3299 Type 2 diabetes mellitus with mild nonproliferative diabetic retinopathy without macular edema, unspecified eye; N18.4 Chronic kidney disease, stage 4 (severe); M19.90 Unspecified osteoarthritis, unspecified site; E03.9 Hypothyroidism, unspecified; E78.5 Hyperlipidemia, unspecified; R00.1 Bradycardia, unspecified

== ENCOUNTER → 2024-06-15 12:22 | Outpatient (BNVA) | payer MEDICARE, SELFPAY | PROVIDERS: PCP Internal Medicine; Visit Provider Internal Medicine | DX: Z00.01 Encounter for general adult medical examination with abnormal findings (principal); I48.20 Chronic atrial fibrillation, unspecified; E11.42 Type 2 diabetes mellitus with diabetic polyneuropathy; E11.3299 Type 2 diabetes mellitus with mild nonproliferative diabetic retinopathy without macular edema, unspecified eye; M19.90 Unspecified osteoarthritis, unspecified site; E03.9 Hypothyroidism, unspecified; E78.5 Hyperlipidemia, unspecified; N18.4 Chronic kidney disease, stage 4 (severe); R00.1 Bradycardia, unspecified | CPT/HCPCS: 99397 ==

== ENCOUNTER 2024-09-04 08:31 | Outpatient (REF) | payer MEDICARE, SELFPAY ==
[2024-09-04 11:32] LABS: Estimated Average Glucose 143 mg/dL; Hemoglobin A1C 146.2424 umol/L; Hemoglobin A1c % 6.6 % (<6.0); Total Hemoglobin (HGBA1C) 3041.5898 umol/L
[2024-09-04 11:49] LABS: Alanine Aminotransferase 10 U/L (0-31); Aspartate Amino Transferase 26 U/L (5-31); Cholesterol 116 mg/dL (<200); HDL Cholesterol 35 mg/dL (>40); LDL Cholesterol Calculated 68 mg/dL (<100); Triglycerides 65 mg/dL (<150)
[2024-09-04 11:55] LABS: Free T4 (Free Thyroxine) 1.32 ng/dL (0.71-1.85); Thyroid Stimulating Hormone 0.38 uIU/mL (0.32-4.0); Vitamin D 25-OH Total 45.8 ng/mL (>30)
== END 2024-09-04 08:32 | disposition home or self-care (01) ==
LOC: HO.HMGCLDS 08:31
PROVIDERS: PCP Internal Medicine; Visit Provider Internal Medicine
DX: E11.3299 Type 2 diabetes mellitus with mild nonproliferative diabetic retinopathy without macular edema, unspecified eye (principal); E78.5 Hyperlipidemia, unspecified; E55.9 Vitamin D deficiency, unspecified; E03.9 Hypothyroidism, unspecified
CPT/HCPCS: 36415; 80061; 82306; 83036; 84439; 84443; 84450; 84460

== ENCOUNTER 2024-09-14 09:48 | Outpatient (AMB) | payer MEDICARE, SELFPAY ==
--- NOTE | 2024-09-14 10:00 | MHC.PC.OV ---
Vital Signs 09/14/24 10:05 Height 5 ft 2 in Weight 147 lb BMI 26.9 BP 94/60 Blood Pressure Location Rt brachial Position Sitting Pulse 70 Pulse Source Pulse Oximeter Temp 97.3 F Temp Source Oral Pulse Oximetry (%) 98 Oxygen Delivery Method Room Air Intake Visit Reasons: 3m f/u dm Allergies No Known Allergies [No Known Allergies*] Allergy (Verified 09/14/24 10:29) Medication List - Last Reconciled 09/14/24 by Lindsay Mckeon MD apixaban 2.5 mg PO BID atorvastatin 20 mg PO DAILY blood sugar diagnostic As directed blood sugar diagnostic (Accu-Chek Karlie Plus test strips) As directed 4 times a day blood-glucose meter (Accu-Chek Karlie Plus Meter) As directed 4 times a day cholecalciferol (vitamin D3) 50 mcg PO DAILY [diabetic shoes As directed] [Diabetic shoes with inserts As directed NS] diltiazem HCl CD (Cartia XT) 300 mg PO DAILY furosemide 20 mg PO DAILY insulin lispro (Humalog KwikPen (U-100) Insulin) Please administer before meals 3 times a day per sliding scale coverage, maximum 30 units per day 90 days lancets As directed 4x per day Lantus Solostar U-100 Insulin (insulin glargine) 17 units (0.17 mL) subcut QPM NS levothyroxine 150 mcg PO DAILY lisinopril 10 mg PO DAILY metoprolol succinate ER 200 mg PO DAILY spironolactone 0.5mg qd Tobacco use date assessed: 09/14/24 Fall risk assessment: 1 Fall in past year Last assessed Fall Risk: 09/14/24 Dental Screening Dental Screen Date: 09/14/24 Did you have a dental visit in the last 12 months?: No Did you have a dental problem in the last 6 months where you did not have access to dental care?: No Was dental information given to patient?: No HPI 3m f/u dm HPI Details 83-year-old lady with diabetes mellitus, dyslipidemia and hypothyroidism, here today for follow-up. Currently taking Humalog KwikPen on a sliding scale coverage and Lantus Solostar 17 units at night, taking levothyroxine 50 mcg daily, and atorvastatin 20 mg daily. Has been feeling well, latest fasting labs showed improvement in diabetes control with hemoglobin A1c now at 6.6%, with lipids, thyroid levels within normal limits. 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 Background diabetic retinopathy associated with type 2 diabetes mellitus Osteoarthritis Hypothyroidism Carotid stenosis, right Obesity (BMI 30-39.9) Dyslipidemia Hypertension CKD (chronic kidney disease) stage 4, GFR 15-29 ml/min Diabetic nephropathy associated with type 2 diabetes mellitus half-way (current) use of insulin Vitamin D deficiency Surgical History Hx of left mastectomy Hx of tubal ligation Hx of lumpectomy Hx of hysterectomy Family History Father Coronary artery disease Diabetes mellitus Mother Diabetes mellitus Social History Household Members: None Housing: House Alcohol intake: never Patient Tobacco Use Status: Never used Tobacco e-Cigarette/Vaping Use: Never Used Current occupational status: retired Cognitive needs: No Hearing needs: No Vision needs: Yes Questionnaire PHQ-9 Over the last 2 weeks, how often have you been bothered by any of the following problems? 1. Little interest or pleasure in doing things: not at all 2. Feeling down, depressed, or hopeless: not at all 3. Trouble falling or staying asleep, or sleeping too much: not at all 4. Feeling tired or having little energy: not at all 5. Poor appetite or overeating: not at all 6. Feeling bad about yourself - or that you are a failure or have let yourself or your family down: not at all 7. Trouble concentrating on things, such as reading the newspaper or watching television: not at all 8. Moving or speaking so slowly that other people could have noticed. Or the opposite - being so fidgety or restless that you have been moving around a lot more than usual: not at all 9. Thoughts that you would be better off or of hurting yourself in some way: not at all Total score: 0 Depression Screening Interpretation: Negative Depression Screening Done: Yes 66419 - PHQ-9 Billing: Yes Source: Developed by Drs. Black Frank, Wendy Lugo, Ryan Pineda and colleagues, with an educational kathi from [employer]. Thrive Questionnaire Date Thrive assessed: 09/14/24 I am a: Patient What is your living situation today?: I have a steady place to live Within the past 12 months, did the food you bought not last and you didn't have the money to get more?: Never true Within the past 12 months, did you worry whether your food would run out before you got money to buy more?: Never true Do you have trouble paying for medicines?: No Do you have trouble getting transportation to medical appointments?: No Do you have trouble paying your heating and electricity bill?: No Do you have trouble taking care of your child, family member or friend?: No Do you have trouble with day-to-day activities such as bathing, preparing meals, shopping, managing finances, etc.?: No Are you currently unemployed and looking for a job?: No Are you interested in more education?: No THRIVE Score: 0 AUDIT C Alcohol Use Questionnaire (AUDIT-C) 1. How often do you have a drink containing alcohol?: Never Total Score: 0 LOC-7 AMB Questionnaire LOC-7 Date LOC - 7 assessed: 12/11/23 Source: Developed by Drs. Black Frank, Wendy Lugo, Ryan Pineda and colleagues, with an educational kathi from [employer]. Review of Systems Const Denies fatigue, Denies headache(s), Denies lethargy and Denies weakness Eyes Details: [facility] in [facility], no diabetic retinopathy, last eye exam was in 01/2024, Denies change in vision ENT Denies dizziness, Denies headache(s), Denies nasal congestion and Denies sore throat Card Denies chest pain, Denies lightheadedness, Denies palpitations and Denies dyspnea Resp Denies cough and Denies dyspnea GI Denies constipation Denies urinary frequency and Denies dysuria Musc Denies muscle cramps, Denies muscle weakness, Denies numbness (Occasional numbness in both feet) and Denies tingling (Occasional in both feet) Skin/Breast Details: Plantar callus present in both feet Neuro Denies dizziness, Denies headache(s), Denies numbness (Occasional numbness in both feet), Denies tingling (Occasional in both feet), Denies paresthesias and Denies weakness Psych Reports no additional complaints Endo Denies fatigue, Denies polydipsia, Denies polyuria and Denies palpitations Ra/Lymph Denies easy bruising Aller/Immun Reports no additional complaints Physical exam (Primary Care) Vital Signs: Last Vital Signs Temp 97.3 F 09/14/24 10:05 Pulse 70 09/14/24 10:05 BP 94/60 09/14/24 10:05 Pulse Ox 98 09/14/24 10:05 Oxygen Delivery Method Room Air 09/14/24 10:05 BMI result Body Mass Index 26.9 Tobacco/Smoking Status: Tobacco use Status Tobacco use date assessed 09/14/24 09/14/24 10:12 Patient Tobacco Use Status Never used Tobacco 09/14/24 10:00 e-Cigarette/Vaping Use Never Used 09/14/24 10:00 Depression Screening Interpretation: Negative Thrive Assessment: Date of Thrive Assessment Date Thrive assessed 12/11/23 09/14/24 10:00 Const General: no acute distress and alert Orientation/consciousness: patient oriented x3 Limitations: ambulation with cane HENMT Ears: external ears normal General nose exam: Normal external nose present and No nasal discharge present Mouth: oropharynx normal and moist mucous membranes Eyes General: appearance normal, both eyes and all related structures Neck Neck: Yes full ROM, Yes no lymphadenopathy and Yes supple Resp Effort & Inspection: normal respiratory effort and able to speak in complete sentences Auscultation: clear to auscultation bilaterally Cardio Rhythm: abnormal rhythm irregularly irregular GI Palpation (GI): Soft to palpation, nontender and no masses Auscultation: normal bowel sounds General: Yes no CVA tenderness Back/Spine/Pelvis Back: no CVA tenderness and No back tenderness Skin General skin exam: no rashes or lesions noted Neuro General: patient oriented x3, moves all extremities, no focal motor deficits and decrease sensation to monofilament (Both feet) Cranial nerves: Yes CN's II-XII intact bilaterally Cognition (Neuro): normal cognition Gait exam (Neuro): Assisted gait required Extrem Other: Plantar callus present in both feet General: Yes full ROM, Yes no joint enlargement, Yes no clubbing, cyanosis or edema and Yes no calf tenderness Psych Appearance: grossly normal and well kempt Mental Status: mental status grossly normal Speech and movement: Normal speech and movement present Affect: normal affect Attitude: cooperative Thought process: Normal thought process present Results Reviewed Results Reviewed: Laboratory Tests 06/11/24 09/04/24 09:19 08:34 Estimat Average Glucose 186 143 Hemoglobin A1c % 8.1 H 6.6 H Name: Elva Burkett Age/Sex: 83/F : 1940 Unit#: [id number] Attend Dr: Lindsay Mckeon MD Re09/04/24 Status: DEP REF Location: [facility] [address] Disch: SPEC : [id number] ANIKA: 09/04/24 STATUS: COMP REQ : [id number] RECD: 09/04/[address]: Lindsay Mckeon MD COMP: 09/04/24 ENTERED: 09/04/[address]: ORDERED: AST, ALT, Lipid Panel, Vitamin D 25-OH, Free T4, TSH Test Result Flag Reference AST (GOT) 26 5-31 U/L ALT (GPT) 10 0-31 U/L Triglyceride 65 <150 mg/dL Desirable Triglyceride: less than 150 mg/dL Borderline High Triglyceride 150-199 mg/dL High Triglyceride: 200-499 mg/dL Very High Triglyceride: greater than or equal to 5OO mg/dL Cholesterol 116 <200 mg/dL Desirable Cholesterol: less than 200 mg/dL Borderline High Cholesterol: 200-239 mg/dL High Cholesterol: greater than 239 mg/dL LDL Calculated 68 <100 mg/dL Desirable LDL: less than 100 mg/dL Near Optimal/Above Optimal LDL: 110-129 mg/dL Borderline High LDL: 130-159 mg/dL High LDL: 160-189 mg/dL Very High LDL: greater than or equal to 190 mg/dL HDL 35 L >40 mg/dL Desirable HDL: greater than 40 mg/dL Note: This HDL assay may give artificially low results in patients with liver disease. Vit D 25-OH Tot 45.8 >30 ng/mL Health Based Reference Values* < 20 ng/mL Deficient 20-30 ng/mL Insufficient > 30 ng/mL Sufficient *Paul KENNY. N Engl J Med. 2007;[id number] Care must be taken in interpreting Vitamin D results from different laboratories and methodologies. Published data demonstrated that results from patients undergoing hemodialysis may show a negative bias when tested with various automated 25-OH vitamin D assays when compared to LC-MS/MS. When testing samples from patients whose predominant form of Vitamin D is Vitamin D2, such as patients receiving Vitamin D2 supplementation, results that are subtherapeutic should be confirmed with another method such as LC-MS/MS. Free T4 1.32 0.71-1.85 ng/dL TSH 3rd Gen. 0.38 0.32-4.0 uIU/mL TSH 3rd Generation ([facility]) Coding Level of Care Code Est Pt Level 4 (53970) Complex EM visit Add On G2211 Diagnoses Dyslipidemia E78.5 Acquired hypothyroidism E03.9 Hypothyroidism type: acquired Type 2 diabetes mellitus with diabetic polyneuropathy E11.42 Additional Codes PHQ-9 - 75079 - PHQ-9 Billing: Yes ([id number]) Assessment & Plan Assessment & Plan (1) Dyslipidemia: Code(s): E78.5 - Hyperlipidemia, unspecified Category: Medical Plan: Fasting lipids are within normal limits, continue with atorvastatin 20 mg daily (2) Hypothyroidism: Code(s): E03.9 - Hypothyroidism, unspecified Category: Medical Qualifiers: Hypothyroidism type: acquired Qualified Code(s): E03.9 - Hypothyroidism, unspecified Plan: Thyroid levels are within normal limits, continue levothyroxine 150 mcg daily (3) Type 2 diabetes mellitus with diabetic polyneuropathy: Code(s): E11.42 - Type 2 diabetes mellitus with diabetic polyneuropathy Category: Medical Plan: Diabetes mellitus well controlled with hemoglobin A1c now at 6.6%. Continue with current dose of Lantus 20 units night and Humalog at the same dose Orders: Orders Vitamin D 25-OH Total 02/25/25 E03.9 - Hypothyroidism, unspecified, E11.42 - Type 2 diabetes mellitus with diabetic polyneuropathy, E55.9 - Vitamin D deficiency, unspecified, E78.5 - Hyperlipidemia, unspecified Hemoglobin A1c 02/25/25 E03.9 - Hypothyroidism, unspecified, E11.42 - Type 2 diabetes mellitus with diabetic polyneuropathy, E55.9 - Vitamin D deficiency, unspecified, E78.5 - Hyperlipidemia, unspecified Lipid Panel 02/25/25 E03.9 - Hypothyroidism, unspecified, E11.42 - Type 2 diabetes mellitus with diabetic polyneuropathy, E55.9 - Vitamin D deficiency, unspecified, E78.5 - Hyperlipidemia, unspecified Alanine Aminotransferase 02/25/25 E03.9 - Hypothyroidism, unspecified, E11.42 - Type 2 diabetes mellitus with diabetic polyneuropathy, E55.9 - Vitamin D deficiency, unspecified, E78.5 - Hyperlipidemia, unspecified Aspartate Amino Transferase 02/25/25 E03.9 - Hypothyroidism, unspecified, E11.42 - Type 2 diabetes mellitus with diabetic polyneuropathy, E55.9 - Vitamin D deficiency, unspecified, E78.5 - Hyperlipidemia, unspecified Thyroid Stimulating Hormone 02/25/25 E03.9 - Hypothyroidism, unspecified, E11.42 - Type 2 diabetes mellitus with diabetic polyneuropathy, E55.9 - Vitamin D deficiency, unspecified, E78.5 - Hyperlipidemia, unspecified Free T4 (Free Thyroxine) 02/25/25 E03.9 - Hypothyroidism, unspecified, E11.42 - Type 2 diabetes mellitus with diabetic polyneuropathy, E55.9 - Vitamin D deficiency, unspecified, E78.5 - Hyperlipidemia, unspecified Medications: Changed From Lantus Solostar U-100 Insulin (insulin glargine) 17 units (0.17 mL) subcut QPM 15 mL 2RF NS E11.3299 - Type 2 diabetes mellitus with mild nonproliferative diabetic retinopathy without macular edema, unspecified eye, E11.42 - Type 2 diabetes mellitus with diabetic polyneuropathy To Lantus Solostar U-100 Insulin (insulin glargine) 20 units (0.2 mL) subcut QPM 15 mL 4RF 3 months NS E11.3299 - Type 2 diabetes mellitus with mild nonproliferative diabetic retinopathy without macular edema, unspecified eye, E11.42 - Type 2 diabetes mellitus with diabetic polyneuropathy Refilled atorvastatin 20 mg PO DAILY 90 tabs 4RF insulin lispro (Humalog KwikPen (U-100) Insulin) Please administer before meals 3 times a day per sliding scale coverage, maximum 30 units per day 30 mL 4RF 90 days E11.65 - Type 2 diabetes mellitus with hyperglycemia levothyroxine 150 mcg PO DAILY 90 tabs 4RF E03.9 - Hypothyroidism, unspecified
[2024-09-14 10:05] VITALS: BP 94/60; PULSE 70; TEMP 36.3; O2SAT 98; BMI 26.9
--- OUTSIDE RECORDS SUMMARY | 2024-09-14 10:33 | XMS_ITS | Clinical Summary ---
Author Organization [facility] Address [address] [place] [phone] Phone Care Team Providers Care Clip Riveter Name Role Phone Semaj Mckeon MD Primary Care Provider [phone] Allergies No known active allergies Medications Multiple Vitamins-Mine rals (Multivitamin Adults 50+) tablet Take 1 tablet by mouth 1 (one) time each day Active atorvastatin (LIPITOR) 20 MG tablet Take 1 tablet by mouth 1 (one) time each day in the evening Active cholecalcifer ol (VITAMIN D-3) 50 MCG (1999) capsule Take 2,000 Units by mouth 1 (one) time each day 03/05/20 21 Active furosemide (LASIX) 20 MG tablet Take 40 mg by mouth 1 (one) time each day 03/09/20 19 Active Toujeo SoloStar 300 UNIT/ML solution pen-injector INJECT 15 UNITS SUBCUTANEOUSLY AT BEDTIME 01/17/20 21 Active HumaLOG KWIKPEN 100 UNIT/ML solution pen-injector INJECT 5 TO 7 UNITS SUBCUTANEOUSLY BEFORE EACH MEAL OR SNACK FIVE TIMES A DAY 02/17/20 21 Active levothyroxine (SYNTHROID, LEVOTHROID) 150 MCG tablet Take 1 tablet by mouth 1 (one) time each day Active metoprolol succinate XL (TOPROL-XL) 200 MG 24 hr tablet Take 1 tablet by mouth 1 (one) time each day Active Eliquis 2.5 MG tablet Take 2.5 mg by mouth in the morning and 2.5 mg in the evening. 10/27/19 23 Active dilTIAZem (TIAZAC) 300 MG 24 hr capsule Take 300 mg by mouth 1 (one) time each day Active lisinopril 10 MG tablet Take 1 tablet (10 mg total) by mouth 1 (one) time each day 90 tablet 3 04/27/20 24 2024 Active lisinopril 20 MG tablet TAKE 1 TABLET(20 MG) BY MOUTH 1 TIME EACH DAY 90 tablet 3 06/07/20 24 Active insulin lispro protamine-ins ulin lispro (HumaLOG MIX 50/50 KWIKPEN) (50-50) 100 UNIT/ML inj pen Inject?into the skin. Active spironolacton e (ALDACTONE) 25 MG tablet TAKE 1/2 TABLET(12.5 MG) BY MOUTH 1 TIME EACH DAY 45 tablet 3 09/05/19 25 Active spironolacton e (Aldactone) 25 MG tablet Take 0.5 tablets (12.5 mg total) by mouth 1 (one) time each day 45 tablet 3 10/07/19 24 2024 Discontinued Active Problems Problem Noted Date Diagnosed Date Type 2 diabetes mellitus wit h complication, not otherwise specified 04/08/2021 Cyst of kidney 02/27/2021 Acute nontraumatic kidney injury 02/27/2021 Anemia in chronic kidney disease 02/27/2021 Paroxysmal atrial fibrillation 02/27/2021 Chronic kidney disease, stage 4 (severe) 021 Hypertension 02/27/2021 Hypertensive heart and renal disease with (congestive) heart failure 02/27/2021 Personal history of breast cancer 02/27/2021 Hypothyroidism, not otherwise specified 02/28/20 21 Proteinuria, not otherwise specified 02/27/2021 Resolved Problems Problem Noted Date Diagnosed Date Resolved Date Other retention of urine 04/08/202105/2022 Edema 02/27/2021 09/07/2021 Hydronephrosis 02/27/2021 04/08/2021 Renal stone 02/27/2021 09/07/2021 Secondary hyperparathyroidism 02/27/2021 09/07/2021 Recurrent urinary tract infection 02/27/2021 09/07/2021 Vesicoureteric reflux 02/27/20212020 Type 2 diabetes mellitus without complication 02/28/20 21 04/08/2021 Neurogenic urinary bladder 02/27/2021 0 09/07/2021 Labile hypertension due to b eing in a clinical environment 02/27/2021 09/07/2021 Hypoalbuminemia 02/27/2021 09/07/2021 Encounters Date Type Department Care Team Description 09/04/2024 Refill [facility] [address] [place] [phone] aT Merida MD 08/03/2024 9:40 AM EST Office Visit [facility] [address] [place] [phone] Ta Merida MD Chronic kidney disease, stage 4 (severe) (HCC) (Primary Dx); Hypertension; Proteinuria, not otherwise specified; Type 2 diabetes mellitus with complication, not otherwise specified (HCC); Anemia in chronic kidney disease; Paroxysmal atrial fibrillation (HCC); 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) 07/30/2024 Orders Only [facility] [address] [place] [phone] Ta Merida MD 07/28/2024 Orders Only [facility] [address] [place] [phone] Ta Merida MD Chronic kidney disease, stage 4 (severe) (HCC); Anemia in chronic kidney disease; Hypertension; Proteinuria, not otherwise specified; Paroxysmal atrial fibrillation (HCC); 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); Other acute kidney failure (HCC); Cyst of kidney; Type 2 diabetes mellitus with complication, not otherwise specified (HCC); Hypothyroidism, not otherwise specified from Last 3 Months Immunizations Name Administration Dates Next Due Influenza Split High Dose Preservative Free IM 1 ,05/02/2017 Influenza, Unspecified 05/04/2018 Pneumococcal Conjugate 13-Valent 05/02/2017 Family History Medical History Relation Comments Diabetes Father Hypertension Father Diabetes Mother Heart disease Mother CHF Hypertension Mother Kidney disease Mother on dialysis Diabetes Sibling 1 2sisters Kidney disease Sibling 2 on dialysis and also eldest sister is currently on dialysis Heart disease Sibling 3 twin sister CHF Hypertension Sibling 4 sisters Relation Status Comments Father Mother Sibling 1 Sibling 2 Sibling 3 Sibling 4 Social History Tobacco Use Types Packs/Day Years Used Date Smoking Tobacco: Never Smokeless Tobacco: Never Tobacco Cessation:Counseling Given: No Alcohol Use Standard Drinks/Week Comments No 0 (1 standard drink = 0.6 oz pur e alcohol) Comments Unknown Sex and Gender Information Value Date Recorded Sex Assigned at Not on file Legal Sex Female 5:12 PM EST Gender Identity Not on file Sexual Orientation Not on file Last Filed Vital Signs Vital Sign Reading Time Taken Comments Blood Pressure 124/78 08/03/2024 9:34 AM EST Pulse 77 08/03/2024 9:34 AM EST Temperature - - Respiratory Rate - - Oxygen Saturation 98% 08/03/2024 9:34 AM EST Inhaled Oxygen Concentration - - Weight 71.1 kg (156 lb 12.8 oz) 08/03/2024 9:34 AM EST Height 165.1 cm (5' 5 ) 04/27/2024 10:3 2 AM EDT Body Mass Index 26.09 04/27/2024 10:32 AM EDT Plan of Treatment Upcoming Encounters Date Type Department Care Team (Late st Contact Info) Description 11/01/2024 8:20 AM EDT Office Visit [facility] [address] [phone] Ta Merida MD [address] [phone] Health Maintenance Due Date Last Done Comments Pneumococcal Vaccine: 65+ Years (2 of 2 - PPSV23 or PCV20) 06/27/2017 05/02/2017 Diabetes: Ophthalmology Exam 04/08/2021 Diabetes: Pedal Pulse Checked 04/08/2021 Diabetes: Sensory Foot Exam 04/08/2021 Diabetes: Visual Foot Exam 04/08/2021 Diabetes: Hemoglobin A1C 01/30/2023 04/2 023, 01/18/2021 Influenza Vaccine (#1) 2024 9, 05/04/2018, 05/02/2017 Hepatitis B Vaccine Aged Out No longe r eligible based on patient's age to complete this topic Procedures Procedure Name Priority Date/Time Associated Diagnosis Comments PROTEIN / CREATININE RATIO, URINE Routine 07/30/2024 11:12 AM EST Chronic kidney disease, stage 4 (severe) (HCC) Anemia in chronic kidney disease Hypertension Proteinuria, not otherwise specified Paroxysmal atrial fibrillation (HCC) 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) Other acute kidney failure (HCC) Cyst of kidney Type 2 diabetes mellitus with complication, not otherwise specified (HCC) Hypothyroidism, not otherwise specified IRON PANEL (HC) Routine 07/30/2024 10:58 AM EST CBC WITH AUTO DIFFERENTIAL Routine 07/30/2024 10:58 AM EST FERRITIN Routine 07/30/2024 10:58 AM EST Chronic kidney disease, stage 4 (severe) (HCC) Anemia in chronic kidney disease Hypertension Proteinuria, not otherwise specified Paroxysmal atrial fibrillation (HCC) 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) Other acute kidney failure (HCC) Cyst of kidney Type 2 diabetes mellitus with complication, not otherwise specified (HCC) Hypothyroidism, not otherwise specified VITAMIN D 25 HYDROXY Routine 07/30/2024 10:58 AM EST Chronic kidney disease, stage 4 (severe) (HCC) Anemia in chronic kidney disease Hypertension Proteinuria, not otherwise specified Paroxysmal atrial fibrillation (HCC) 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) Other acute kidney failure (HCC) Cyst of kidney Type 2 diabetes mellitus with complication, not otherwise specified (HCC) Hypothyroidism, not otherwise specified PTH, INTACT Routine 07/30/2024 10:58 AM EST Chronic kidney disease, stage 4 (severe) (HCC) Anemia in chronic kidney disease Hypertension Proteinuria, not otherwise specified Paroxysmal atrial fibrillation (HCC) 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) Other acute kidney failure (HCC) Cyst of kidney Type 2 diabetes mellitus with complication, not otherwise specified (HCC) Hypothyroidism, not otherwise specified PHOSPHATE ( PHOSPHORUS) Routine 07/30/2024 10:58 AM EST Chronic kidney disease, stage 4 (severe) (HCC) Anemia in chronic kidney disease Hypertension Proteinuria, not otherwise specified Paroxysmal atrial fibrillation (HCC) 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) Other acute kidney failure (HCC) Cyst of kidney Type 2 diabetes mellitus with complication, not otherwise specified (HCC) Hypothyroidism, not otherwise specified MAGNESIUM Routine 07/30/2024 10:58 AM EST Chronic kidney disease, stage 4 (severe) (HCC) Anemia in chronic kidney disease Hypertension Proteinuria, not otherwise specified Paroxysmal atrial fibrillation (HCC) 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) Other acute kidney failure (HCC) Cyst of kidney Type 2 diabetes mellitus with complication, not otherwise specified (HCC) Hypothyroidism, not otherwise specified URIC ACID Routine 07/30/2024 10:58 AM EST Chronic kidney disease, stage 4 (severe) (HCC) Anemia in chronic kidney disease Hypertension Proteinuria, not otherwise specified Paroxysmal atrial fibrillation (HCC) 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) Other acute kidney failure (HCC) Cyst of kidney Type 2 diabetes mellitus with complication, not otherwise specified (HCC) Hypothyroidism, not otherwise specified COMPREHENSIVE METABOLIC PANEL Routine 07/30/2024 10:58 AM EST Chronic kidney disease, stage 4 (severe) (HCC) Anemia in chronic kidney disease Hypertension Proteinuria, not otherwise specified Paroxysmal atrial fibrillation (HCC) 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) Other acute kidney failure (HCC) Cyst of kidney Type 2 diabetes mellitus with complication, not otherwise specified (HCC) Hypothyroidism, not otherwise specified HEMOGLOBIN A1C Routine 10/31/2022 9:10 AM EDT from Last 3 Months or Most Recently Relevant to Health Maintenance Results * (ABNORMAL) Protein, Total, Random Urine w/Creatinine (Protein/Creat Ratio) (07/30/2024 11:12 AM EST) Protein, Ur 80 mg/dL [facility] Urine Protein/Creati nine Ratio 1.11(H) <=0.20 mg/mg creat [facility] Creatinine, Urine 72.0 mg/dL [facility] Urine (Urine, Clean Catch) 07/30/2024 11:12 AM EST 07/30/2024 12:30 PM EST Ta Merida MD LAB URINE ORDERABLES Final Re sult Performing Organization Address City/[facility]/ZIP Co de Phone Number [facility] [address] [place] [address] * (ABNORMAL) Iron Panel (07/30/2024 10:58 AM EST) Pathologist [facility] Iron 62 40 - 150 mcg/dL [facility] TIBC 237(L) 250 - 450 mcg/dL [facility] Iron Saturation (TSat) 26 15 - 50 % [facility] 07/30/2024 10:5 8 AM EST 07/30/2024 12:27 PM EST Ta Merida MD LAB [id number] SOLICITED RESULTS Final Result Performing Organization Address [facility] Co de Phone Number [facility] [address] [place] [address] * (ABNORMAL) CBC auto differential (07/30/2024 10:58 AM EST) [facility] WBC 7.9 4.8 - 10.8 K/[facility] RBC 3.50(L) 3.80 - 4.80 M/[facility] Hgb 11.0(L) 11.5 - 16.0 g/dL [facility] Hematocrit 34.9(L) 35.0 - 47.0 % [facility] MCV 101.2(H) 79.0 - 98.[address] [facility] MCH 31.9 27.0 - 32.[address] [facility] MCHC 31.5(L) 32.0 - 37.0 g/dL [facility] RDW 12.8 11.0 - 15.0 % [facility] Platelets 331 130 - 400 K/[facility] MPV 10.4 7.0 - 11.[address] [facility] nRBC Count 0.0 <1.0 % [facility] NRBC Absolute 0.00 <0.10 K/[facility] Bands Relative 79.2 % [facility] Lymphocyte Realative Percent 10.2 % [facility] Monocyte Relative Percent 6.0 % [facility] Eosinophil Relative Percent 3.4 % [facility] Basophils Relative Diff 0.8 % [facility] Immature Granulocytes 0.4 % [facility] Neutrophils Absolute 6.24 1.50 - 7.00 K/[facility] Lymphocytes Absolute 0.80(L) 1.00 - 5.00 K/[facility] Monocytes Absolute 0.47 0.20 - 1.00 [facility] Eosinophil Absolute 0.27 0.00 - 0.50 [facility] Basophil ABS 0.06 0.00 - 0.20 [facility] Immature Grans (Absolute) 0.03 0.00 - 0.03 K/[facility] 07/30/2024 10:5 8 AM EST 07/30/2024 12:27 PM EST us Ta Merida MD LAB BLOOD ORDERABLES Final Re sult [facility] [address] [place] [address] * Vitamin D 25 Hydroxy (07/30/2024 10:58 AM EST) Vitamin D, 25-OH, Total 77.6 30.0 - 80.0 ng/mL [facility] Blood (Blood, Venous) 07/30/2024 10:58 AM EST 07/30/2024 12:27 PM EST Ta Merida MD LAB BLOOD ORDERABLES Final Re sult Performing Organization Address City/[facility]/ZIP Co de Phone Number [facility] [address] [place] [address] * Uric Acid (07/30/2024 10:58 AM EST) Uric Acid 7.8 3.1 - 7.8 mg/dL [facility] Blood (Blood, Venous) 07/30/2024 10:58 AM EST 07/30/2024 12:27 PM EST Ta Merida MD LAB BLOOD ORDERABLES Final Re sult Performing Organization Address [facility] Co de Phone Number [facility] [address] [place] [address] * Phosphorus (07/30/2024 10:58 AM EST) Phosphorus 3.4 2.5 - 4.5 mg/dL [facility] Blood (Blood, Venous) 07/30/2024 10:58 AM EST 07/30/2024 12:27 PM EST Ta Merida MD LAB BLOOD ORDERABLES Final Re sult Performing Organization Address City/[facility]/ZIP Co de Phone Number [facility] [address] [place] [address] * (ABNORMAL) PTH, Intact (07/30/2024 10:58 AM EST) PTH 99.7(H) 18.5 - 88.0 pcg/mL [facility] Blood (Blood, Venous) 07/30/2024 10:58 AM EST 07/30/2024 12:27 PM EST us Ta Merida MD LAB BLOOD ORDERABLES Final Re sult Performing Organization Address [facility] Co de Phone Number [facility] [address] [place] [address] * Magnesium (07/30/2024 10:58 AM EST) [facility] Magnesium 2.1 1.9 - 2.6 mg/dL [facility] Blood (Blood, Venous) 07/30/2024 10:58 AM EST 07/30/2024 12:27 PM EST us Ta Merida MD LAB BLOOD ORDERABLES Final Re sult Performing Organization Address [facility] Co de Phone Number [facility] [address] [place] [address] * Ferritin (07/30/2024 10:58 AM EST) [facility] Ferritin 242 8 - 252 ng/mL [facility] Blood (Blood, Venous) 07/30/2024 10:58 AM EST 07/30/2024 12:27 PM EST Ta Merida MD LAB BLOOD ORDERABLES Final Re sult Performing Organization Address [facility] de Phone Number [facility] [address] [place] [address] * (ABNORMAL) Comprehensive Metabolic Panel (07/30/2024 10:58 AM EST) [facility] Sodium 142 133 - 145 mmol/L [facility] Potassium 4.6 3.5 - 5.5 mmol/L [facility] Chloride 109 96 - 110 mmol/L [facility] Bicarbonate (CO2) 26 21 - 32 mmol/L [facility] Anion Gap 7 3 - 11 [facility] Glucose 211(H) 70 - 100 mg/dL [facility] BUN 41(H) 5 - 25 mg/dL [facility] Creatinine Serum 2.19(H) 0.50 - 1.10 mg/dL [facility] eGFR 22(L) >=60 mL/min/1. 73m2 [facility] Comment:Calculation based on the?Chronic Kidney Disease Epidemiology Collaboration (CKD-EPI) equation refit?without adjustment for race. BUN/Creatinine Ratio 18.7 [facility] Calcium 8.9 8.5 - 10.5 mg/dL [facility] AST (SGOT) 9(L) 10 - 42 unit/L [facility] ALT (SGPT) 11 10 - 60 unit/L [facility] Alkaline Phosphatase 87 42 - 121 unit/L [facility] Total Protein 7.3 6.0 - 8.0 g/dL [facility] Albumin 3.6 3.2 - 5.0 g/dL [facility] Total Bilirubin 0.6 0.0 - 1.4 mg/dL [facility] Blood (Blood, Venous) 07/30/2024 10:58 AM EST 07/30/2024 12:27 PM EST us Ta Merida MD LAB BLOOD ORDERABLES Final Re sult [facility] [address] [place] [address] * (ABNORMAL) Hemoglobin A1c (10/31/2022 9:10 AM EDT) Glycated Hemoglobin 8.3(H) <6.5 % [facility] (MEDICITY) Estimated Average Glucose 192 mg/dL [facility] ([facility]) Performing Lab Performing Lab(H) [facility] ([facility]) Comment: [employer], a member of [address] [address] Quality Assurance Supervisor Body - Gaviota Mejía MD 10/31/2022 9:10 AM EDT 10/31/2022 9:10 AM EDT us Ta Merida MD LAB BLOOD ORDERABLES Final Re sult [facility] ([facility]ICITY) from Last 3 Months or Most Recently Relevant to Health Maintenance Insurance [facility] MEDIC[facility] Care Teams Clip Riveter Relationship Specialty Start Date End Date Semaj Mckeon MD [address] [place] [address] PCP - General 08/07/20
--- OUTSIDE RECORDS SUMMARY | 2024-09-14 10:33 | XMS_ITS | Clinical Summary ---
Author Organization [address] [place] [address] Address [address] [place] [address] Phone Care Team Providers Care Intern Product Marketing Manager Name Role Phone Lindsay Mckeon MD Primary Care Provider Allergies No known active allergies Medications metoprolol succinate (TOPROL-XL) 200 mg 24 hr tablet TAKE 1 TABLET BY MOUTH DAILY 90 tablet 1 06/08/2024 Active dilTIAZem (TIAZAC) 300 mg 24 hr capsule TAKE 1 CAPSULE BY MOUTH DAILY 90 capsule 2 06/08/2024 Active furosemide (LASIX) 20 mg tablet TAKE 2 TABLETS BY MOUTH DAILY 180 tablet 2 06/08/2024 Active apixaban (Eliquis) 2.5 mg tablet TAKE 1 TABLET BY MOUTH TWICE DAILY 12/03/2023 Active insulin lispro protamine-insul in lispro (HumaLOG Mix 50-50 KwikPen) 100 unit/mL (50-50) injection pen Inject?in to the skin. Active spironolactone (ALDACTONE) 25 mg tablet Take 0.5 Tablets by mouth daily. Active lisinopriL (PRINIVIL,ZESTR IL) 20 mg tablet Take 1 Tablet by mouth daily. - Oral Active atorvastatin (LIPITOR) 20 mg tablet Take 20 mg by mouth daily. - Oral Active levothyroxine (SYNTHROID, LEVOTHROID) 150 mcg tablet Take 150 mcg by mouth daily. - Oral Active cholecalciferol (VITAMIN D-3) 25 mcg (1,000 unit) tablet Take 1,000 mcg by mouth daily. - Oral Active Active Problems Problem Noted Date Diagnosed Date Carotid stenosis, asymptomatic 07/01/2024 Abnormal EKG 04/23/2023 Overview (07/01/2024): Last Assessment & Plan: She had more ST T abnormality compared to previous EKG. She had no chest pain all of visit dyspnea with daily activity. Giving the risk factors, I will schedule a pharmacological nuclear stress test. Anemia in chronic kidney disease 02/27/2021 Acute nontraumatic kidney injury 02/27/2021 Chronic kidney disease, stage 4 (severe) 021 Cyst of kidney, acquired 02/27/2021 Hypertension 02/27/2021 Overview (07/01/2024): Last Assessment & Plan: Patient's blood pressure is well controlled in the office with use of a large cuff. Continue her current treatment plan with beta-kenneth, calcium channel kenneth and TONIA inhibitor. Hypertensive heart and renal disease with (congestive) heart failure 02/27/2021 Hypothyroidism 02/27/2021 Paroxysmal atrial fibrillation 02/27/2021 Overview (07/01/2024): Permanent Anticoagulated with apixaban Last Assessment & Plan: Atrial fibrillation rate is controlled. She is on reduced dose Eliquis. Her creatinine level used to be about 1.5 but most recent level was 1.44. We will repeat another BMP she is due for BMP with Dr. Allen today. We will adjusting Eliquis dosage accordingly based on creatinine level. We will continue current regimen for rate control. Proteinuria 02/27/2021 Hyperlipidemia 02/22/2021 Overview (07/01/2024): Last Assessment & Plan: Patient's lipid profile available to us is somewhat outdated but well controlled. Continue statin at current dose. CHF (congestive heart failur e), NYHA class II, chronic, diastolic 08/21/2020 Overview (07/01/2024): Last Assessment & Plan: She appears euvolemic. We will continue current dose furosemide. We will repeat echocardiogram. Cataract 05/05/2019 Overview (07/01/2024): 2018 s/p left surgery DJD (degenerative joint disease) of knee 019 Type 2 diabetes mellitus with cataract 9 Type 2 diabetes mellitus with renal manifestatio ns 05/05/2019 Resolved Problems Problem Noted Date Diagnosed Date Resolved Date Type 2 diabetes mellitus wit h unspecified complications 04/08/2021 07/01/2024 Encounters Date Type Department Care Team Description 06/16/2024 Telephone [facility] - [address] [facility] [address] [place] [address] Jayda Griffin MD Abnormal ECG from Last 3 Months Surgical History Surgery Date Site/Laterality Comments HYSTERECTOMY PROCEDURE: HISTORICAL HYSTERECTOMY; COMMENT: removal of 1 ovary in her 30's BREAST BIOPSY 09/07/2014 Left PROCEDURE: BX BREAST; PERC NEEDLE CORE W/IMAG GUID; COMMENT: DCIS, 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 MASTECTOMY 10/04/2014 Left PROCEDURE: HISTORICAL MASTECTOMY CATARACT EXTRACTION 2017 Left PROCEDURE: HISTORICAL CATARACT REMOVAL Medical History Medical History Date Comments History of kidney stones DX:Hist ory of kidney stones Atrial fibrillation (CMS/HCC) DX :Atrial fibrillation (HCC) Carotid stenosis, asymptomatic D X:Carotid stenosis, asymptomatic Hypertension DX:Hypertension Type 2 diabetes mellitus wit h renal manifestations (CMS/HCC) 05/05/2019 DX:Type 2 diabetes mellitus with renal manifestations (HCC) DJD (degenerative joint dise ase) of knee 05/05/2019 DX:DJD (degenerative joint d isease) of knee Cataract 05/05/2019 DX:Cataract; COM MENT: 2018 s/p left surgery Type 2 diabetes mellitus wit h cataract (CMS/HCC) 05/05/2019 DX:Type 2 diabetes mellitus with cataract (HCC) History of cancer of left breast 11/19/2018 DX:History of cancer of left breast; COMMENT: 08/2014 S/p mastectomy;Estrogen receptor negative Social History Tobacco Use Types Packs/Day Years Used Date Smoking Tobacco: Never Smokeless Tobacco: Never Alcohol Use Standard Drinks/Week Comments Not Currently 0 (1 standard drink = 0.6 oz pur e alcohol) Comments Unknown Sex and Gender Information Value Date Recorded Sex Assigned at Not on file Legal Sex Female 9:25 PM EST Gender Identity Not on file Sexual Orientation Not on file Obstetrics History Last Filed Vital Signs Vital Sign Reading Time Taken Comments Blood Pressure 130/70 10/29/2023 9:26 AM EDT R A rm Pulse 77 10/29/2023 9:26 AM EDT Temperature - - Respiratory Rate - - Oxygen Saturation - - Inhaled Oxygen Concentration - - Weight 73.5 kg (162 lb) 10/29/2023 9:26 AM EDT Height 165.1 cm (5' 5 ) 10/29/2023 9:26 AM EDT Body Mass Index 26.96 10/29/2023 9:26 AM EDT Plan of Treatment Upcoming Encounters Date Type Department Care Team (Late st Contact Info) Description 09/21/2024 9:50 AM EST Office Visit [facility] - [facility] [address] [facility] [address] [place] [address] Jayda Griffin MD [address] [facility] [address] [place] [address] Health Maintenance Due Date Last Done Comments Diabetes: Annual Foot Exam 11/05/1950 Diabetes: Annual Retina Eye Exam 11/05/1950 DTaP,Tdap,and Td Vaccines (1 - Tdap) 1960 RSV Immunization Patients 60+ Years Old (1 - 1-dose 75+ series) 2016 Cholesterol Screening (Lipid Panel) 07/06/2022 Depression Screening 07/06/2022 Falls Risk Assessment 07/06/2022 Medicare Annual Wellness Visit 07/06/2022 Osteoporosis Screening (Bone Density Screening) 07/06/2022 Social Influencers of Health Screening 07/06/2022 Diabetes: Annual Urine Albumin-Creatinine Ratio (uACR) 07/13/2022 Diabetes: Blood Sugar Control Test (HGBA1C) 05/02/2023 10/31/2022 COVID-19 Vaccine ( season) 2024 06/11/2023, 04/20/2022, 12/25/2021, Additional history exists Influenza Vaccine (#1) 2024 , 05/17/2022, 05/05/2021, Additional history exists Diabetes: Annual GFR (Glomerular Filtration Rate) 07/30/2025 07/30/2024, 04/23/2024, 04/23/2024 Hypertension/CHF/CAD Annual BMP Blood Test 07/30/2025 07/30/2024, 04/23/2024, 04/23/2024 Pneumococcal Vaccine: 50+ Years Completed 06/12/2021, 05/02/2017, 06/06/2016 Zoster Vaccines Completed 03/27/2022, 01/09/2022 HIB Vaccines Aged Out No longer eligi ble based on patient's age to complete this topic HPV Vaccines Aged Out No longer eligi ble based on patient's age to complete this topic Hepatitis A Vaccines Aged Out No long er eligible based on patient's age to complete this topic Hepatitis B Vaccines Aged Out No long er eligible based on patient's age to complete this topic IPV Vaccines Aged Out No longer eligi ble based on patient's age to complete this topic MMR Vaccines Aged Out No longer eligi ble based on patient's age to complete this topic Meningococcal ACWY Vaccine Aged Out N o longer eligible based on patient's age to complete this topic Meningococcal B Vacine Aged Out No lo nger eligible based on patient's age to complete this topic RSV Immunization Patients Under 20 months Aged Out No longer eligible based on patient's age to complete this topic Varicella Vaccines Aged Out No longer eligible based on patient's age to complete this topic Procedures Procedure Name Priority Date/Time Associated Diagnosis Comments PROTEIN AND CREATININE WITH RATIO, URINE Routine 07/30/2024 11:12 AM EST Chronic kidney disease, stage IV (severe) (CMS/HCC) Anemia of chronic renal failure Primary hypertension Proteinuria Paroxysmal atrial fibrillation (CMS/HCC) Chronic kidney disease, unspecified Heart failure, unspecified (CMS/HCC) Hypertensive heart and renal disease with congestive heart failure (CMS/HCC) Acute renal failure with pathological lesion in kidney (CMS/HCC) Acquired cyst of kidney DM (diabetes mellitus) with complications (CMS/HCC) Primary hypothyroidism CBC WITH AUTO DIFFERENTIAL Routine 07/30/2024 10:58 AM EST Chronic kidney disease, stage IV (severe) (CMS/HCC) Anemia of chronic renal failure Primary hypertension Proteinuria Paroxysmal atrial fibrillation (CMS/HCC) Chronic kidney disease, unspecified Heart failure, unspecified (CMS/HCC) Hypertensive heart and renal disease with congestive heart failure (CMS/HCC) Acute renal failure with pathological lesion in kidney (CMS/HCC) Acquired cyst of kidney DM (diabetes mellitus) with complications (CMS/HCC) Primary hypothyroidism IRON AND TIBC Routine 07/30/2024 10:58 AM EST Chronic kidney disease, stage IV (severe) (CMS/HCC) Anemia of chronic renal failure Primary hypertension Proteinuria Paroxysmal atrial fibrillation (CMS/HCC) Chronic kidney disease, unspecified Heart failure, unspecified (CMS/HCC) Hypertensive heart and renal disease with congestive heart failure (CMS/HCC) Acute renal failure with pathological lesion in kidney (CMS/HCC) Acquired cyst of kidney DM (diabetes mellitus) with complications (CMS/HCC) Primary hypothyroidism FERRITIN Routine 07/30/2024 10:58 AM EST Chronic kidney disease, stage IV (severe) (CMS/HCC) Anemia of chronic renal failure Primary hypertension Proteinuria Paroxysmal atrial fibrillation (CMS/HCC) Chronic kidney disease, unspecified Heart failure, unspecified (CMS/HCC) Hypertensive heart and renal disease with congestive heart failure (CMS/HCC) Acute renal failure with pathological lesion in kidney (CMS/HCC) Acquired cyst of kidney DM (diabetes mellitus) with complications (CMS/HCC) Primary hypothyroidism CBC AND DIFFERENTIAL Routine 07/30/2024 10:58 AM EST Chronic kidney disease, stage IV (severe) (CMS/HCC) Anemia of chronic renal failure Primary hypertension Proteinuria Paroxysmal atrial fibrillation (CMS/HCC) Chronic kidney disease, unspecified Heart failure, unspecified (CMS/HCC) Hypertensive heart and renal disease with congestive heart failure (CMS/HCC) Acute renal failure with pathological lesion in kidney (CMS/HCC) Acquired cyst of kidney DM (diabetes mellitus) with complications (CMS/HCC) Primary hypothyroidism VITAMIN D 25 HYDROXY Routine 07/30/2024 10:58 AM EST Chronic kidney disease, stage IV (severe) (CMS/HCC) Anemia of chronic renal failure Primary hypertension Proteinuria Paroxysmal atrial fibrillation (CMS/HCC) Chronic kidney disease, unspecified Heart failure, unspecified (CMS/HCC) Hypertensive heart and renal disease with congestive heart failure (CMS/HCC) Acute renal failure with pathological lesion in kidney (CMS/HCC) Acquired cyst of kidney DM (diabetes mellitus) with complications (CMS/HCC) Primary hypothyroidism PARATHYROID HORMONE INTACT Routine 07/30/2024 10:58 AM EST Chronic kidney disease, stage IV (severe) (CMS/HCC) Anemia of chronic renal failure Primary hypertension Proteinuria Paroxysmal atrial fibrillation (CMS/HCC) Chronic kidney disease, unspecified Heart failure, unspecified (CMS/HCC) Hypertensive heart and renal disease with congestive heart failure (CMS/HCC) Acute renal failure with pathological lesion in kidney (CMS/HCC) Acquired cyst of kidney DM (diabetes mellitus) with complications (CMS/HCC) Primary hypothyroidism PHOSPHORUS Routine 07/30/2024 10:58 AM EST Chronic kidney disease, stage IV (severe) (CMS/HCC) Anemia of chronic renal failure Primary hypertension Proteinuria Paroxysmal atrial fibrillation (CMS/HCC) Chronic kidney disease, unspecified Heart failure, unspecified (CMS/HCC) Hypertensive heart and renal disease with congestive heart failure (CMS/HCC) Acute renal failure with pathological lesion in kidney (CMS/HCC) Acquired cyst of kidney DM (diabetes mellitus) with complications (CMS/HCC) Primary hypothyroidism MAGNESIUM Routine 07/30/2024 10:58 AM EST Chronic kidney disease, stage IV (severe) (CMS/HCC) Anemia of chronic renal failure Primary hypertension Proteinuria Paroxysmal atrial fibrillation (CMS/HCC) Chronic kidney disease, unspecified Heart failure, unspecified (CMS/HCC) Hypertensive heart and renal disease with congestive heart failure (CMS/HCC) Acute renal failure with pathological lesion in kidney (CMS/HCC) Acquired cyst of kidney DM (diabetes mellitus) with complications (CMS/HCC) Primary hypothyroidism URIC ACID Routine 07/30/2024 10:58 AM EST Chronic kidney disease, stage IV (severe) (CMS/HCC) Anemia of chronic renal failure Primary hypertension Proteinuria Paroxysmal atrial fibrillation (CMS/HCC) Chronic kidney disease, unspecified Heart failure, unspecified (CMS/HCC) Hypertensive heart and renal disease with congestive heart failure (CMS/HCC) Acute renal failure with pathological lesion in kidney (CMS/HCC) Acquired cyst of kidney DM (diabetes mellitus) with complications (CMS/HCC) Primary hypothyroidism COMPREHENSIVE METABOLIC PANEL Routine 07/30/2024 10:58 AM EST Chronic kidney disease, stage IV (severe) (CMS/HCC) Anemia of chronic renal failure Primary hypertension Proteinuria Paroxysmal atrial fibrillation ([facility]/HCC) Chronic kidney disease, unspecified Heart failure, unspecified ([facility]/HCC) Hypertensive heart and renal disease with congestive heart failure ([facility]/HCC) Acute renal failure with pathological lesion in kidney ([facility]/HCC) Acquired cyst of kidney DM (diabetes mellitus) with complications ([facility]) Primary hypothyroidism from Last 3 Months Results * (ABNORMAL) Protein and creatinine with ratio, urine (07/30/2024 11:12 AM EST) Pathologist [facility] Protein, Urine 80 mg/dL LAB CHEMISTRY METHOD 07/30/2024 1:05 PM [facility] Prot/Creat, Ur 1.11(H) <=0.20 mg/mg creat LAB CHEMISTRY METHOD 07/30/2024 1:05 PM [facility] Creatinine, Urine 72.0 mg/dL LAB CHEMISTRY METHOD 07/30/2024 1:05 PM [facility] Urine Urine specimen obtained by clean catch procedure / Unknown Non-blood Collection / Unknown 07/30/2024 11:12 AM EST 07/30/2024 12:30 PM EST us Ta Merida MD LAB URINE ORDERABLES Final Result [facility] [address] [place] [address], * (ABNORMAL) CBC auto differential (07/30/2024 10:58 AM EST) [facility] WBC 7.9 4.8 - 10.8 K/mcL LAB HEMETOLOGY METHOD 07/30/2024 12:41 PM [facility] RBC 3.50(L) 3.80 - 4.80 M/mcL LAB HEMETOLOGY METHOD 07/30/2024 12:41 PM [facility] Hemoglobin 11.0(L) 11.5 - 16.0 g/dL LAB HEMETOLOGY METHOD 07/30/2024 12:41 PM [facility] Hematocrit 34.9(L) 35.0 - 47.0 % LAB HEMETOLOGY METHOD 07/30/2024 12:41 PM [facility] MCV 101.2(H) 79.0 - 98.0 FL LAB HEMETOLOGY METHOD 07/30/2024 12:41 PM [facility] MCH 31.9 27.0 - 32.0 pcg LAB HEMETOLOGY METHOD 07/30/2024 12:41 PM [facility] MCHC 31.5(L) 32.0 - 37.0 g/dL LAB HEMETOLOGY METHOD 07/30/2024 12:41 PM [facility] RDW 12.8 11.0 - 15.0 % LAB HEMETOLOGY METHOD 07/30/2024 12:41 PM [facility] Platelets 331 130 - 400 K/mcL LAB HEMETOLOGY METHOD 07/30/2024 12:41 PM [facility] MPV 10.4 7.0 - 11.0 FL LAB HEMETOLOGY METHOD 07/30/2024 12:41 PM [facility] NRBC 0.0 <1.0 % LAB HEMETOLOGY METHOD 07/30/2024 12:41 PM [facility] NRBC Absolute 0.00 <0.10 K/mcL LAB HEMETOLOGY METHOD 07/30/2024 12:41 PM [facility] Neutrophils Relative 79.2 % LAB HEMETOLOGY METHOD 07/30/2024 12:41 PM [facility] Lymphocytes Relative 10.2 % LAB HEMETOLOGY METHOD 07/30/2024 12:41 PM [facility] Monocytes Relative 6.0 % LAB HEMETOLOGY METHOD 07/30/2024 12:41 PM [facility] Eosinophils Relative 3.4 % LAB HEMETOLOGY METHOD 07/30/2024 12:41 PM [facility] Basophils Relative 0.8 % LAB HEMETOLOGY METHOD 07/30/2024 12:41 PM [facility] Immature Granulocytes Relative 0.4 % LAB HEMETOLOGY METHOD 07/30/2024 12:41 PM [facility] Neutrophils Absolute 6.24 1.50 - 7.00 K/mcL LAB HEMETOLOGY METHOD 07/30/2024 12:41 PM [facility] Lymphocytes Absolute 0.80(L) 1.00 - 5.00 K/mcL LAB HEMETOLOGY METHOD 07/30/2024 12:41 PM [facility] Monocytes Absolute 0.47 0.20 - 1.00 K/mcL LAB HEMETOLOGY METHOD 07/30/2024 12:41 PM [facility] Eosinophils Absolute 0.27 0.00 - 0.50 K/mcL LAB HEMETOLOGY METHOD 07/30/2024 12:41 PM [facility] Basophils Absolute 0.06 0.00 - 0.20 K/mcL LAB HEMETOLOGY METHOD 07/30/2024 12:41 PM [facility] Immature Granulocytes Absolute 0.03 0.00 - 0.03 K/mcL LAB HEMETOLOGY METHOD 07/30/2024 12:41 PM [facility] Blood Venous blood specimen / Unknown Venipuncture / Unknown 07/30/2024 10:58 AM EST 07/30/2024 12:27 PM EST us Ta Merida MD LAB BLOOD ORDERABLES Final Result [facility] [address] [place] [address], * (ABNORMAL) Iron and TIBC (07/30/2024 10:58 AM EST) Iron 62 40 - 150 mcg/dL LAB CHEMISTRY METHOD 07/30/2024 1:[address] [facility] TIBC 237(L) 250 - 450 mcg/dL LAB CHEMISTRY METHOD 07/30/2024 1:[address] [facility] Iron Saturation 26 15 - 50 % LAB CHEMISTRY METHOD 07/30/2024 1:[address] [facility] Blood Venous blood specimen / Unknown Venipuncture / Unknown 07/30/2024 10:58 AM EST 07/30/2024 12:27 PM EST us Ta Merida MD LAB BLOOD ORDERABLES Final Result [facility] [address] [place] [address], [place] [phone] * Vitamin D 25 hydroxy (07/30/2024 10:58 AM EST) Pathologist [facility] Vit D, 25-Hydroxy 77.6 30.0 - 80.0 ng/mL LAB CHEMISTRY METHOD 07/30/2024 1:[address] [facility] Blood Venous blood specimen / Unknown Venipuncture / Unknown 07/30/2024 10:58 AM EST 07/30/2024 12:27 PM EST us Ta Merida MD LAB BLOOD ORDERABLES Final Result [facility] [address] [place] [address], [place] [phone] * Uric acid (07/30/2024 10:58 AM EST) [facility] Uric Acid 7.8 3.1 - 7.8 mg/dL LAB CHEMISTRY METHOD 07/30/2024 1:[address] [facility] Blood Venous blood specimen / Unknown Venipuncture / Unknown 07/30/2024 10:58 AM EST 07/30/2024 12:27 PM EST us Ta Merida MD LAB BLOOD ORDERABLES Final Result Performing Organization Address [facility] Co de Phone Number [facility] [address] [place] [address], [place] [phone] * Phosphorus (07/30/2024 10:58 AM EST) Phosphorus 3.4 2.5 - 4.5 mg/dL LAB CHEMISTRY METHOD 07/30/2024 1:[address] [facility] Blood Venous blood specimen / Unknown Venipuncture / Unknown 07/30/2024 10:58 AM EST 07/30/2024 12:27 PM EST us Ta Merida MD LAB BLOOD ORDERABLES Final Result Performing Organization Address [facility] de Phone Number [facility] [address] [place] [address], [place] [phone] * (ABNORMAL) Parathyroid hormone intact (07/30/2024 10:58 AM EST) [facility] PTH 99.7(H) 18.5 - 88.0 pcg/mL LAB CHEMISTRY METHOD 07/30/2024 1:[address] [facility] Blood Venous blood specimen / Unknown Venipuncture / Unknown 07/30/2024 10:58 AM EST 07/30/2024 12:27 PM EST us Ta Merida MD LAB BLOOD ORDERABLES Final Result Performing Organization Address [facility]/ZIP Co de Phone Number [facility] [address] [place] [address], [place] [phone] * Magnesium (07/30/2024 10:58 AM EST) Pathologist [facility] Magnesium 2.1 1.9 - 2.6 mg/dL LAB CHEMISTRY METHOD 07/30/2024 1:[address] [facility] Blood Venous blood specimen / Unknown Venipuncture / Unknown 07/30/2024 10:58 AM EST 07/30/2024 12:27 PM EST us Ta Merida MD LAB BLOOD ORDERABLES Final Result Performing Organization Address City/[facility]/ZIP Co de Phone Number [facility] [address] [place] [address], [place] [phone] * Ferritin (07/30/2024 10:58 AM EST) Pathologist [facility] Ferritin 242 8 - 252 ng/mL LAB CHEMISTRY METHOD 07/30/2024 1:12 PM [facility] Blood Venous blood specimen / Unknown Venipuncture / Unknown 07/30/2024 10:58 AM EST 07/30/2024 12:27 PM EST us Ta Merida MD LAB BLOOD ORDERABLES Final Result Performing Organization Address City/[facility]/ZIP Co de Phone Number [facility] [address] [place] [address], [place] [phone] * (ABNORMAL) Comprehensive metabolic panel (07/30/2024 10:58 AM EST) Pathologist [facility] Sodium 142 133 - 145 mmol/L LAB CHEMISTRY METHOD 07/30/2024 1:12 PM [facility] Potassium 4.6 3.5 - 5.5 mmol/L LAB CHEMISTRY METHOD 07/30/2024 1:12 PM [facility] Chloride 109 96 - 110 mmol/L LAB CHEMISTRY METHOD 07/30/2024 1:12 PM [facility] CO2 26 21 - 32 mmol/L LAB CHEMISTRY METHOD 07/30/2024 1:12 PM [facility] Anion Gap 7 3 - 11 LAB CHEMISTRY METHOD 07/30/2024 1:12 PM [facility] Glucose 211(H) 70 - 100 mg/dL LAB CHEMISTRY METHOD 07/30/2024 1:12 PM [facility] BUN 41(H) 5 - 25 mg/dL LAB CHEMISTRY METHOD 07/30/2024 1:12 PM [facility] Creatinine 2.19(H) 0.50 - 1.10 mg/dL LAB CHEMISTRY METHOD 07/30/2024 1:12 PM [facility] eGFR 22(L) >=60 mL/min/1. 73m2 LAB CHEMISTRY METHOD 07/30/2024 1:12 PM [facility] Comment:Calculation based on the??Chronic Kidney Disease Epidemiology Collaboration (CKD-EPI) equation refit??without adjustment for race. BUN/Creatinine Ratio 18.7 LAB CHEMISTRY METHOD 07/30/2024 1:12 PM [facility] Calcium 8.9 8.5 - 10.5 mg/dL LAB CHEMISTRY METHOD 07/30/2024 1:12 PM [facility] AST (SGOT) 9(L) 10 - 42 unit/L LAB CHEMISTRY METHOD 07/30/2024 1:12 PM [facility] ALT (SGPT) 11 10 - 60 unit/L LAB CHEMISTRY METHOD 07/30/2024 1:12 PM [facility] Alkaline Phosphatase 87 42 - 121 unit/L LAB CHEMISTRY METHOD 07/30/2024 1:12 PM [facility] Total Protein 7.3 6.0 - 8.0 g/dL LAB CHEMISTRY METHOD 07/30/2024 1:12 PM [facility] Albumin 3.6 3.2 - 5.0 g/dL LAB CHEMISTRY METHOD 07/30/2024 1:12 PM [facility] Total Bilirubin 0.6 0.0 - 1.4 mg/dL LAB CHEMISTRY METHOD 07/30/2024 1:12 PM [facility] Blood Venous blood specimen / Unknown Venipuncture / Unknown 07/30/2024 10:58 AM EST 07/30/2024 12:27 PM EST us Ta Merida MD LAB BLOOD ORDERABLES Final Result [facility] [address] [place] [address], from Last 3 Months Insurance [employer] MEDICARE Care Teams Intern Product Marketing Manager Relationship Specialty Start Date End Date Lindsay Mckeon MD [address] [place] [address] PCP - General 10/05/10
--- OUTSIDE RECORDS SUMMARY | 2024-09-14 10:33 | XMS_ITS | Encounter Summary ---
Author Organization [facility] Address [address] [facility] [address] [place] [address] Phone Care Team Providers Care Loan Collector Name Role Phone Semaj Mckeon MD Primary Care Provider +1- [phone] Reason for Visit * Reason Comments Med Refill Encounter Details Date Type Department Care Team (Late Contact Info) Description 09/04/2024 Refill [facility] [address] [place] [address] Ta Merida MD [address] [address] Social History Tobacco Use Types Packs/Day Years Used Date Smoking Tobacco: Never Smokeless Tobacco: Never Alcohol Use Standard Drinks/Week Comments No 0 (1 standard drink = 0.6 oz pur e alcohol) Comments Unknown Sex and Gender Information Value Date Recorded Sex Assigned at Not on file Legal Sex Female 5:12 PM EST Gender Identity Not on file Sexual Orientation Not on file documented as of this encounter Plan of Treatment Upcoming Encounters Date Type Department Care Team (Late st Contact Info) Description 11/01/2024 8:20 AM EDT Office Visit [facility] [address] [address] Ta Merida MD [address] [address] documented as of this encounter Visit Diagnoses Not on filedocumented in this encounter Care Teams Loan Collector Relationship Specialty Start Date End Date Semaj Mckeon MD [address] [place] [address] PCP - General 08/07/20 documented as of this encounter
== END 2024-09-14 10:52 | disposition home or self-care (01) ==
LOC: HO.HMCC 09:48
PROVIDERS: PCP Internal Medicine; Visit Provider Internal Medicine
DX: E78.5 Hyperlipidemia, unspecified (principal); E03.9 Hypothyroidism, unspecified; E11.42 Type 2 diabetes mellitus with diabetic polyneuropathy

== ENCOUNTER → 2024-09-14 09:48 | Outpatient (BNVA) | payer MEDICARE, SELFPAY | PROVIDERS: PCP Internal Medicine; Visit Provider Internal Medicine | DX: E78.5 Hyperlipidemia, unspecified (principal); E03.9 Hypothyroidism, unspecified; E11.42 Type 2 diabetes mellitus with diabetic polyneuropathy | CPT/HCPCS: 96127; 99212 ==

== ENCOUNTER 2024-10-30 08:58 | Outpatient (REF) | payer MEDICARE, SELFPAY ==
--- OUTSIDE RECORDS SUMMARY | 2024-10-30 09:03 | XMS_ITS | Clinical Summary ---
Author Organization [address] [place] [address] Address [address] [place] [address] Phone Care Team Providers Care Cattle Rancher Name Role Phone Lindsay Mckeon MD Primary Care Provider Allergies No known active allergies Medications metoprolol succinate (TOPROL-XL) 200 mg 24 hr tablet TAKE 1 TABLET BY MOUTH DAILY 90 tablet 1 4 Active dilTIAZem (TIAZAC) 300 mg 24 hr capsule TAKE 1 CAPSULE BY MOUTH DAILY 90 capsule 2 4 Active insulin lispro protamine-insu david lispro (HumaLOG Mix 50-50 KwikPen) 100 unit/mL (50-50) injection pen Inject?i nto the skin. Active spironolactone (ALDACTONE) 25 mg tablet Take 0.5 Tablets by mouth daily. Active atorvastatin (LIPITOR) 20 mg tablet Take 20 mg by mouth daily. - Oral Active levothyroxine (SYNTHROID, LEVOTHROID) 150 mcg tablet Take 150 mcg by mouth daily. - Oral Active cholecalcifero l (VITAMIN D-3) 25 mcg (1,000 unit) tablet Take 1,000 mcg by mouth daily. - Oral Active insulin glargine (LANTUS) 100 unit/mL injection Inject under the skin at bedtime. Active lisinopriL (PRINIVIL,ZEST RIL) 10 mg tablet Take 1 tablet (10 mg total) by mouth 1 (one) time each day. Active furosemide (LASIX) 20 mg tablet Take 1 tablet (20 mg total) by mouth 1 (one) time each day. Active apixaban (Eliquis) 2.5 mg tablet TAKE 1 TABLET BY MOUTH TWICE DAILY 180 tablet 3 5 Active apixaban (Eliquis) 2.5 mg tablet TAKE 1 TABLET BY MOUTH TWICE DAILY 4 10/27/19 25 Discontinued Active Problems Problem Noted Date Diagnosed Date Chronic atrial fibrillation 09/21/2024 Assessment & Plan (09/21/2024 10:47 AM EST): Has been chronic. She is on quite high dose metoprolol and diltiazem. I would arrange 24-hour Holter monitor to make sure the dosage remains appropriate for her. Will continue reduced dose Eliquis. Orders: Cardiac holter monitor (<= 48 hours); Future Nonrheumatic aortic valve stenosis 09/21/2024 Assessment & Plan (09/21/2024 10:47 AM EST): Echocardiogram more than a year ago showed mild to moderate aortic stenosis. Will repeat echocardiogram to reassess aortic stenosis. Orders: Transthoracic echocardiogram (TTE) complete with PRN contrast, bubble, strain, and 3D order panel; Future Carotid stenosis, asymptomatic 07/01/2024 Abnormal EKG 04/23/2023 [...] with (congestive) heart failure 02/27/2021 Hypothyroidism 02/27/2021 Proteinuria 02/27/2021 Hyperlipidemia 02/22/2021 Overview (07/01/2024): Last Assessment & Plan: Patient's lipid profile available to us is somewhat outdated but well controlled. Continue statin at current dose. CHF (congestive heart failur e), NYHA class II, chronic, diastolic 08/21/2020 Overview (07/01/2024): Last Assessment & Plan: She appears euvolemic. We will continue current dose furosemide. We will repeat echocardiogram. Assessment & Plan (09/21/2024 10:47 AM EST): She is euvolemic. Will continue low-dose furosemide Cataract 05/05/2019 Overview (07/01/2024): 2018 s/p left surgery DJD (degenerative joint disease) of knee 019 Type 2 diabetes mellitus with cataract 9 Type 2 diabetes mellitus with renal manifestatio ns 05/05/2019 Resolved Problems Problem Noted Date Diagnosed Date Resolved Date Type 2 diabetes mellitus wit h unspecified complications 04/08/2021 07/01/2024 Paroxysmal atrial fibrillation 02/27/2021 09/21/2024 Overview (07/01/2024): Permanent Anticoagulated with apixaban Last [...] will continue current regimen for rate control. Assessment & Plan (09/21/2024 10:47 AM EST): Orders: ECG 12 lead Encounters Date Type Department Care Team Description 09/21/2024 10:40 AM EST Ancillary Procedure [facility] [address] [place] [address] Chronic atrial fibrillation (CMS/HCC) 09/21/2024 9:50 AM EST Office Visit [facility] [address] [place] [address] Jayda Griffin MD Paroxysmal atrial fibrillation (CMS/HCC) (Primary Dx); Chronic atrial fibrillation (CMS/HCC); Nonrheumatic aortic valve stenosis; CHF (congestive heart failure), NYHA class II, chronic, diastolic (CMS/HCC) from Last 3 Months Surgical History Surgery [...] s/p left surgery Type 2 diabetes mellitus with cataract 05/05/2019 DX:Type 2 diabetes mellitus with cataract [...] Sign Reading Time Taken Comments Blood Pressure 112/64 09/21/2024 9:41 AM EST Pulse 68 09/21/2024 9:41 AM EST Temperature - - Respiratory Rate - - Oxygen Saturation 98% 09/21/2024 9:41 AM EST Inhaled Oxygen Concentration - - Weight 69.4 kg (153 lb) 09/21/2024 9:41 AM EST Height 165.1 cm (5' 5 ) 09/21/2024 9:41 AM EST Body Mass Index 25.46 09/21/2024 9:41 AM EST Plan of Treatment Upcoming Encounters Date Type Department Care Team (Late st Contact Info) Description 11/25/2024 11:00 AM EDT Ancillary Procedure [facility] [address] [place] [address] Health Maintenance Due Date Last Done Comments Diabetes: Annual Foot Exam 11/05/1950 Diabetes: Annual Retina Eye Exam 11/05/1950 DTaP,Tdap,and Td Vaccines (1 - Tdap) 1960 RSV Immunization Adult Patients (1 - 1-dose 75+ series) 2016 Cholesterol Screening (Lipid Panel) 07/06/2022 Depression Screening 07/06/2022 Falls Risk Assessment 07/06/2022 Medicare Annual Wellness Visit 07/06/2022 Osteoporosis Screening (Bone Density Screening) 07/06/2022 Social Influencers of Health Screening 07/06/2022 Diabetes: Annual Urine Albumin-Creatinine Ratio (uACR) 07/13/2022 Diabetes: Blood Sugar Control Test (HGBA1C) 05/02/2023 10/31/2022 COVID-19 Vaccine ( season) 2024 06/11/2023, 04/20/2022, 12/25/2021, Additional history exists Diabetes: Annual GFR (Glomerular Filtration Rate) 07/30/2025 07/30/2024, 07/30/2024, 07/30/2024, Additional history exists Hypertension/CHF/CAD Annual BMP Blood Test 07/30/2025 07/30/2024, 07/30/2024, 07/30/2024, Additional history exists Pneumococcal Vaccine: 50+ Years Completed 06/12/2021, 05/02/2017, 06/06/2016 Zoster Vaccines Completed 03/27/2022, 01/09/2022 Influenza Vaccine Completed 09/04/2024, , 05/17/2022, Additional history exists HIB Vaccines Aged Out No longer eligi [...] Procedure Name Priority Date/Time Associated Diagnosis Comments CARDIAC HOLTER MONITOR (REPORT GENERATED IN HOUSE) Routine 09/21/2024 10:35 AM EST Chronic atrial fibrillation (CMS/HCC) ECG 12-LEAD Routine 09/21/2024 9:53 AM EST Paroxysmal atrial fibrillation (CMS/HCC) COMPREHENSIVE METABOLIC PANEL Routine 07/30/2024 10:58 AM [...] (diabetes mellitus) with complications (CMS/HCC) Primary hypothyroidism from Last 3 Months or Most Recently Relevant to Health Maintenance Results * CARDIAC HOLTER MONITOR (REPORT GENERATED IN HOUSE) (09/21/2024 10:35 AM EST) Anatomical Region Laterality Modality Cardiac Diagnost ic Narrative 09/23/2024 11:10 AM EST [facility] DI[facility]STIC TESTING DEPARTMENT [address] [place] [address], [place] [address], [place] [address] TEL: FAX: Type of Test: 48 Hour Holter Monitor Date of Test: 09/21/2024 Ordering Provider: Jayda Griffin MD Reason for Test: Chronic Atrial Fibrillation ?? PVCA Software Validation Engineer Findings: ?? 1: Atrial Fibrillation/Flutter noted throughout recording. 2: Ventricular rate range was 38-130 BPM with an average of 87 BPM. 3: Occasional PVCs and one ventricular couplet. 4: No significant pause noted, longest R-R was 2.4 seconds at 1:38 PM. 5: Diary returned with no symptoms noted. Impression: ?? Atrial fibrillation throughout. ?? No significant tachy- bradycardia phenomena with average heart rate 87 ?? . The longest R-R interval 2.4 seconds. ?? Jayda Griffin MD CV CARDIAC SERVICES PROCEDURES F inal Result * ECG 12 lead (09/21/2024 9:53 AM EST) Ventricular Rate ECG 68 BPM GEMUSE Atrial Rate 315 BPM GEMUSE QRS Duration 94 ms GEMUSE Q-T Interval 442 ms GEMUSE QTc 469 ms GEMUSE R Mathias 95 degrees GEMUSE T Mathias 96 degrees GEMUSE ECG Interpretation Atrial flutter with variable A-V block Rightward axis Abnormal ECG When compared with ECG of 27-FEB-2017 08:17, Atrial flutter has replaced Atrial fibrillation Confirmed by Rhonda GRIFFIN YUFENG ([id number]) on 09/21/2024 10:24:41 AM GEMUSE 09/21/2024 9:53 AM EST 09/21/2024 10:24 AM EST us Jayda Griffin MD ECG ORDERABLES Final Result GEMUSE * (ABNORMAL) Comprehensive metabolic panel (07/30/2024 10:58 AM EST) Sodium 142 133 - 145 mmol/L LAB CHEMISTRY METHOD 07/30/2024 1:12 PM EST [facility] Potassium 4.6 3.5 - 5.5 mmol/L LAB CHEMISTRY METHOD 07/30/2024 1:[address] [facility] Chloride 109 96 - 110 mmol/L LAB CHEMISTRY METHOD 07/30/2024 1:[address] [facility] CO2 26 21 - 32 mmol/L LAB CHEMISTRY METHOD 07/30/2024 1:[address] [facility] Anion Gap 7 3 - 11 LAB CHEMISTRY METHOD 07/30/2024 1:[address] [facility] Glucose 211(H) 70 - 100 mg/dL LAB CHEMISTRY METHOD 07/30/2024 1:[address] [facility] BUN 41(H) 5 - 25 mg/dL LAB CHEMISTRY METHOD 07/30/2024 1:[address] [facility] Creatinine 2.19(H) 0.50 - 1.10 mg/dL LAB CHEMISTRY METHOD 07/30/2024 1:[address] [facility] eGFR 22(L) >=60 mL/min/1. 73m2 LAB CHEMISTRY METHOD 07/30/2024 1:[address] [facility] Comment:Calculation based on the??Chronic Kidney Disease Epidemiology Collaboration (CKD-EPI) equation refit??without adjustment for race. BUN/Creatinine Ratio 18.7 LAB CHEMISTRY METHOD 07/30/2024 1:[address] [facility] Calcium 8.9 8.5 - 10.5 mg/dL LAB CHEMISTRY METHOD 07/30/2024 1:[address] [facility] AST (SGOT) 9(L) 10 - 42 unit/L LAB CHEMISTRY METHOD 07/30/2024 1:[address] [facility] ALT (SGPT) 11 10 - 60 unit/L LAB CHEMISTRY METHOD 07/30/2024 1:[address] [facility] Alkaline Phosphatase 87 42 - 121 unit/L LAB CHEMISTRY METHOD 07/30/2024 1:[address] [facility] Total Protein 7.3 6.0 - 8.0 g/dL LAB CHEMISTRY METHOD 07/30/2024 1:12 PM EST [facility] Albumin 3.6 3.2 - 5.0 g/dL LAB CHEMISTRY METHOD 07/30/2024 1:12 PM EST [facility] Total Bilirubin 0.6 0.0 - 1.4 mg/dL LAB CHEMISTRY METHOD 07/30/2024 1:12 PM EST [facility] Blood Venous blood specimen / Unknown Venipuncture / Unknown 07/30/2024 10:58 AM EST 07/30/2024 12:27 PM EST us Ta Merida MD LAB BLOOD ORDERABLES Final Result [facility] [address] [place] [address], from Last 3 Months or Most Recently Relevant to Health Maintenance Insurance [employer] MEDICARE Care Teams Cattle Rancher Relationship Specialty Start Date End Date Lindsay Mckeon MD [address] [place] [address] PCP - General 10/05/10
--- OUTSIDE RECORDS SUMMARY | 2024-10-30 09:03 | XMS_ITS | Clinical Summary ---
Author Organization [facility] Address [address] [place] [address] Phone Care Team Providers Care Dough Catcher Name Role Phone Semaj Mckeon MD Primary Care Provider +1- [phone] Allergies No known active allergies Medications Multiple Vitamins-Mad[place] als (Multivitamin Adults 50+) tablet Take 1 tablet by mouth 1 (one) time each day Active atorvastatin (LIPITOR) 20 MG tablet Take 1 tablet by mouth 1 (one) time each day in the evening Active cholecalcifero l (VITAMIN D-3) 50 MCG (1999) capsule Take 2,000 Units by mouth 1 (one) time each day 1 Active furosemide (LASIX) 20 MG tablet Take 40 mg by mouth 1 (one) time each day 9 Active Toujeo SoloStar 300 UNIT/ML solution pen-injector INJECT 15 UNITS SUBCUTANEOUSLY AT BEDTIME 1 Active HumaLOG KWIKPEN 100 UNIT/ML solution pen-injector INJECT 5 TO 7 UNITS SUBCUTANEOUSLY BEFORE EACH MEAL OR SNACK FIVE TIMES A DAY 1 Active levothyroxine (SYNTHROID, LEVOTHROID) 150 MCG tablet Take 1 tablet by mouth 1 (one) time each day Active metoprolol succinate XL (TOPROL-XL) 200 MG 24 hr tablet Take 1 tablet by mouth 1 (one) time each day Active Eliquis 2.5 MG tablet Take 2.5 mg by mouth in the morning and 2.5 mg in the evening. 3 Active dilTIAZem (TIAZAC) 300 MG 24 hr capsule Take 300 mg by mouth 1 (one) time each day Active lisinopril 10 MG tablet Take 1 tablet (10 mg total) by mouth 1 (one) time each day 90 tablet 3 4 025 Active lisinopril 20 MG tablet TAKE 1 TABLET(20 MG) BY MOUTH 1 TIME EACH DAY 90 tablet 3 4 Active insulin lispro protamine-insu david lispro (HumaLOG MIX 50/50 KWIKPEN) (50-50) 100 UNIT/ML inj pen Inject?into the skin. Active spironolactone (ALDACTONE) 25 MG tablet TAKE 1/2 TABLET(12.5 MG) BY MOUTH 1 TIME EACH DAY 45 tablet 3 5 Active Active Problems Problem Noted Date Diagnosed [...] [facility] [address] [place] [address] Ta Merida MD 08/03/2024 9:40 AM EST Office Visit [facility] [address] [facility] [address] [place] [id number] Ta Merida MD Chronic kidney disease, stage 4 (severe) (HCC) (Primary Dx); Hypertension; Proteinuria, not otherwise specified; Type 2 diabetes mellitus with complication, not otherwise specified (HCC); Anemia in chronic kidney disease; Paroxysmal atrial fibrillation (HCC); 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) from Last 3 Months Immunizations Name Administration [...] Team (Late st Contact Info) Description 11/01/2024 Orders Only [facility] [address] [address] Ta Merida MD [address] [address] Chronic kidney disease, stage 4 (severe) (HCC); Hypertension; Proteinuria, not otherwise specified; Type 2 diabetes mellitus with complication, not otherwise specified (HCC); Anemia in chronic kidney disease; Paroxysmal atrial fibrillation (HCC); 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) 11/01/2024 8:20 AM EDT Office Visit [facility] [address] [address] Ta Merida MD [address] [address] Health Maintenance Due Date Last Done Comments Pneumococcal Vaccine: 65+ Years (2 of 2 - PPSV23 or PCV20) 06/27/2017 05/02/2017 Diabetes: Ophthalmology Exam 04/08/2021 Diabetes: Pedal Pulse Checked 04/08/2021 Diabetes: Sensory Foot Exam 04/08/2021 Diabetes: Visual Foot Exam 04/08/2021 Diabetes: Hemoglobin A1C 01/30/2023 023, 01/18/2021 Influenza Vaccine (Season Ended) 2025 04/27/2019, 05/04/2018, 05/02/2017 Hepatitis B Vaccine Aged Out No longe r eligible based on patient's age to complete this topic Procedures Procedure Name Priority Date/Time Associated Diagnosis Comments HEMOGLOBIN A1C Routine 10/31/2022 9:10 AM EDT from Last 3 Months or Most Recently Relevant to Health Maintenance Results * (ABNORMAL) Hemoglobin A1c (10/31/2022 9:10 AM EDT) Glycated Hemoglobin 8.3(H) <6.5 % BRITTANY (Peer60) Estimated Average Glucose 192 mg/dL BRITTANY (Peer60) Performing Lab Performing Lab(H) BRITTANY (Peer60) Comment: [employer], a member of [address] [address] Health Editor - Gaviota Mejía MD 10/31/2022 9:10 AM EDT 10/31/2022 9:10 AM EDT us Ta Merida MD LAB BLOOD ORDERABLES Final Re sult BRITTANY (MEDICITY) from Last 3 Months or Most Recently Relevant to Health Maintenance Insurance [facility] MEDICARE Care Teams Dough Catcher Relationship Specialty Start Date End Date Semaj Mckeon MD [address] [place] [address] PCP - General 08/07/20
[2024-10-30 11:42] LABS: MANUAL DIFF FLAG NO
[2024-10-30 11:59] LABS: Magnesium 2.2 mg/dL (1.6-2.6)
[2024-10-30 12:02] LABS: Basophils Absolute Auto 0.1 X10*3/uL (0.0-0.2); Basophils Percent Auto 0.7 % (0-2); Eosinophils Absolute Auto 0.4 X10*3/uL (0.0-0.4); Eosinophils Percent Auto 4.5 % (0-4); Hematocrit 36.6 % (37.0-47.0); Imm Gran Abs Auto 0.03 X10*3/uL (0.00-0.03); Imm Gran Pct Auto 0.4 % (0.0-0.4); Lymphocytes Percent Auto 12.3 % (20-40); Mean Corpuscular HGB Conc 32.8 g/dl (31.0-35.0); Mean Corpuscular Hemoglobin 31.6 pg (27.0-33.0); Mean Corpuscular Volume 96.3 fL (80.0-98.0); Mean Platelet Volume 10.5 fL (9.4-12.3); Monocytes Absolute Auto 0.8 X10*3/uL (0.1-1.2); Neutrophils Absolute Auto 6.1 x10*3/uL (2.0-8.3); Neutrophils Percent Auto 73.1 % (45-73); Platelet Count 271 X10*3/uL (160-400); Red Cell Distribution Width 13.7 % (11.0-16.0); White Blood Count 8.4 X10*3/uL (4.8-10.8)
[2024-10-30 12:12] LABS: Alanine Aminotransferase 13 U/L (0-31); Albumin Level 3.6 g/dL (3.5-5.0); Alkaline Phosphatase 75 U/L (39-117); Anion Gap 13 (12-20); Aspartate Amino Transferase 26 U/L (5-31); Bilirubin Total 0.4 mg/dL (0.0-1.0); Blood Urea Nitrogen 81 mg/dL (9-16); Calcium 8.8 mg/dL (8.4-10.2); Carbon Dioxide 23 mmol/L (22-29); Chloride 106 mmol/L (96-108); Estimated Glomerular Filt Rate 16; Glucose Random 150 mg/dL (60-115); Phosphorus 3.7 mg/dL (2.7-4.5); Potassium 4.1 mmol/L (3.3-5.1); Sodium 138 mmol/L (135-145)
[2024-10-30 12:27] LABS: Parathyroid Hormone Intact 127.4 pg/mL (8.7-77.1); Vitamin D 25-OH Total 36.6 ng/mL (>30)
[2024-10-30 16:22] LABS: Creatinine Urine 70.85 mg/dL; Protein/Creatinine Ratio, Ur 0.23 (<0.2); Total Protein Urine Random 16 mg/dL (<12)
== END 2024-10-30 08:59 | disposition home or self-care (01) ==
LOC: HO.HMGCLDS 08:58
PROVIDERS: PCP Internal Medicine; Visit Provider Internal Medicine Nephrology
DX: N18.4 Chronic kidney disease, stage 4 (severe) (principal); I13.0 Hypertensive heart and chronic kidney disease with heart failure and stage 1 through stage 4 chronic kidney disease, or unspecified chronic kidney disease; R80.9 Proteinuria, unspecified; E11.8 Type 2 diabetes mellitus with unspecified complications; D63.1 Anemia in chronic kidney disease; I48.0 Paroxysmal atrial fibrillation; N18.9 Chronic kidney disease, unspecified; I50.9 Heart failure, unspecified
CPT/HCPCS: 36415; 80053; 82306; 82570; 83735; 83970; 84100; 84156; 84550; 85025

== ENCOUNTER → 2024-11-18 12:43 | Outpatient (BNVA) | payer MEDICARE, SELFPAY | PROVIDERS: PCP Internal Medicine | DX: Z13.89 Encounter for screening for other disorder (principal) ==

== ENCOUNTER → 2024-12-09 08:05 | Outpatient (BNVA) | payer MEDICARE, SELFPAY | PROVIDERS: PCP Internal Medicine | DX: Z13.89 Encounter for screening for other disorder (principal) ==

== ENCOUNTER 2025-01-22 09:45 | Outpatient (REF) | payer MEDICARE, SELFPAY ==
--- OUTSIDE RECORDS SUMMARY | 2025-01-22 09:47 | XMS_ITS | Encounter Summary ---
Author Organization [facility] Address [address] [place] [address] Care Team Providers Care Nuclear Operations Specialist Name Role Phone Lindsay Mckeon MD Primary Care Provider [phone] Reason for Visit * Reason Onset Date Comments Prior Authorization 01/17/2025 PYP Encounter Details Date Type Department Care Team (Late st Contact Info) Description 01/17/2025 Telephone [facility] [address] [facility] [address] [place] [address] Cardiology, [facility] Prior Authorization (PYP) Social History Tobacco Use Types Packs/Day Years [...] on file documented as of this encounter Progress Notes * Anahi Ferguson MA - 01/19/2025 8:[address] Griffin spoke to [facility] doctor and the authorization number is [id number] 01/16-03/05 * Anahi Ferguson MA - 01/18/2025 4:14 PM EDT Called [facility] peer to peer for . scheduled for 01/[address] Tyrone Sutton at 8:15 * Ne Palacio - 01/17/2025 11:[address]. Griffin, I received a fax notification from [facility] regarding the PYP request for this patient. At this time theinsurance is requesting additional information in order to make a determination for this request. [facility] is requesting documentation indicating medical necessity for the PYP. They are offering additional time, up to 01/23/25 to provide the medical necessity documentation. If this is not receive by mentioned date this may result in a denial for the request. At this time, [facility] is also offering the option to perform a peer to peer in reference to requested information. Telephone number to call is [phone] option 1, then enter . Please note this patient is currently scheduled for 01/24/25 for the PYP. documented in this encounter Plan of Treatment Upcoming Encounters Date Type Department Care Team (Late st Contact Info) Description 01/24/2025 12:00 PM EDT Ancillary Procedure [facility] - [address] [place] [address] documented as of this encounter Visit Diagnoses Not on filedocumented in this encounter Care Teams Nuclear Operations Specialist Relationship Specialty Start Date End Date Lindsay Mckeon MD [address] [place] [address] PCP - General 10/05/10 documented as of this encounter
[2025-01-22 11:06] LABS: MANUAL DIFF FLAG NO
[2025-01-22 11:17] LABS: Basophils Absolute Auto 0.1 X10*3/uL (0.0-0.2); Eosinophils Absolute Auto 0.4 X10*3/uL (0.0-0.4); Eosinophils Percent Auto 6.1 % (0-4); Hematocrit 36.5 % (37.0-47.0); Hemoglobin 11.6 g/dl (12.0-16.0); Imm Gran Abs Auto 0.02 X10*3/uL (0.00-0.03); Imm Gran Pct Auto 0.3 % (0.0-0.4); Lymphocytes Absolute Auto 1.1 X10*3/uL (1.2-4.9); Mean Corpuscular HGB Conc 31.8 g/dl (31.0-35.0); Mean Corpuscular Hemoglobin 31.9 pg (27.0-33.0); Mean Corpuscular Volume 100.3 fL (80.0-98.0); Mean Platelet Volume 9.8 fL (9.4-12.3); Monocytes Absolute Auto 0.6 X10*3/uL (0.1-1.2); Monocytes Percent Auto 9.1 % (2-11); Neutrophils Absolute Auto 4.7 x10*3/uL (2.0-8.3); Neutrophils Percent Auto 67.5 % (45-73); Platelet Count 302 X10*3/uL (160-400); Red Blood Count 3.64 X10*6/uL (4.20-5.50); Red Cell Distribution Width 13.8 % (11.0-16.0)
[2025-01-22 11:23] LABS: Anion Gap 12 (12-20)
[2025-01-22 11:31] LABS: Alanine Aminotransferase 12 U/L (0-31); Albumin Level 3.9 g/dL (3.5-5.0); Alkaline Phosphatase 86 U/L (39-117); Aspartate Amino Transferase 24 U/L (5-31); Bilirubin Total 0.4 mg/dL (0.0-1.0); Blood Urea Nitrogen 63 mg/dL (9-16); Calcium 8.9 mg/dL (8.4-10.2); Carbon Dioxide 21 mmol/L (22-29); Chloride 111 mmol/L (96-108); Estimated Glomerular Filt Rate 21; Glucose Random 97 mg/dL (60-115); Magnesium 2.1 mg/dL (1.6-2.6); Potassium 4.7 mmol/L (3.3-5.1); Sodium 139 mmol/L (135-145); Total Protein 7.2 g/dL (6.5-8.0)
[2025-01-22 11:52] LABS: Uric Acid 8.4 mg/dL (2.4-5.7)
[2025-01-22 12:07] LABS: Parathyroid Hormone Intact 82.8 pg/mL (8.7-77.1)
[2025-01-22 12:11] LABS: Vitamin D 25-OH Total 25.4 ng/mL (>30)
== END 2025-01-22 09:46 | disposition home or self-care (01) ==
LOC: HO.HMGCLDS 09:45
PROVIDERS: PCP Internal Medicine; Visit Provider Internal Medicine Nephrology
DX: N18.4 Chronic kidney disease, stage 4 (severe) (principal); D63.1 Anemia in chronic kidney disease; N17.8 Other acute kidney failure; I10 Essential (primary) hypertension; N18.9 Chronic kidney disease, unspecified; I50.9 Heart failure, unspecified; I13.0 Hypertensive heart and chronic kidney disease with heart failure and stage 1 through stage 4 chronic kidney disease, or unspecified chronic kidney disease; E03.9 Hypothyroidism, unspecified; I48.0 Paroxysmal atrial fibrillation; Z85.3 Personal history of malignant neoplasm of breast; R80.9 Proteinuria, unspecified; E11.8 Type 2 diabetes mellitus with unspecified complications
CPT/HCPCS: 36415; 80053; 82306; 83735; 83970; 84100; 84550; 85025

== ENCOUNTER 2025-01-23 06:15 | Outpatient (REF) | payer MEDICARE, SELFPAY ==
--- OUTSIDE RECORDS SUMMARY | 2025-01-24 07:08 | XMS_ITS | Encounter Summary ---
Author Organization [facility] Address [address] [address] Phone Care Team Providers Care Workday Consultant Name Role Phone Semaj Mckeon MD Primary Care Provider [phone]- [phone] Encounter Details Date Type Department Care Team (Late Contact Info) Description 01/22/2025 Orders Only [facility] [address] [address] Ta Merida MD [facility] [address] [address] Social History Tobacco Use Types [...] Care Team (Late st Contact Info) Description 01/31/2025 Orders Only 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 [address] [address] Ta Merida MD [address] [address] documented as of this encounter Procedures Procedure Name Priority Date/Time Associated Diagnosis Comments PTH, INTACT (HC) Routine 01/22/2025 11:0 2 AM EDT documented in this encounter Results * (ABNORMAL) PTH, Intact (01/22/2025 11:02 AM EDT) Parathyroid Hormone, Intact 82.8(H) 8.7 - 77.1 pg/mL See order comments 01/22/2025 11:0 2 AM EDT 01/22/2025 11:02 AM EDT us Ta Merida MD LAB [id number] SOLICITED RESULTS Final Result [place] See order comments [place] [address] documented in this encounter Visit Diagnoses Not on filedocumented in this encounter Care Teams Workday Consultant Relationship Specialty Start Date End Date Semaj Mckeon MD [facility] [place] [address] PCP - General 08/07/20 documented as of this encounter
== END 2025-01-23 06:16 | disposition home or self-care (01) ==
LOC: HO.HMGCLNP 06:15
PROVIDERS: PCP Internal Medicine; Visit Provider Internal Medicine Nephrology
DX: Z13.89 Encounter for screening for other disorder (principal)

== ENCOUNTER 2025-01-24 06:15 | Outpatient (REF) | payer MEDICARE, SELFPAY ==
[2025-01-24 11:18] LABS: Creatinine Urine 27.81 mg/dL; Protein/Creatinine Ratio, Ur 1.73 (<0.2); Total Protein Urine Random 48 mg/dL (<12)
--- OUTSIDE RECORDS SUMMARY | 2025-01-26 08:58 | XMS_ITS | Encounter Summary ---
Author Organization [facility] Address [address] [address] Phone Care Team Providers Care [employer] Driver Name Role Phone Semaj Mckeon MD Primary Care Provider [phone]- [phone] Encounter Details Date Type Department Care Team (Late st Contact Info) Description 01/22/2025 Orders Only [facility] [address] [address] Ta Merida MD [facility] [address] [address] Social History Tobacco Use Types [...] Orders Only [facility] [address] [address] aT Merida MD [address] [address] Chronic kidney disease, stage 4 [...] Office Visit [facility] [address] [address] Ta Merida MD [address] [address] documented as of this encounter Procedures Procedure Name Priority Date/Time Associated Diagnosis Comments PTH, INTACT (HC) Routine 01/22/2025 11:0 2 AM EDT documented in this encounter Results * (ABNORMAL) PTH, Intact (01/22/2025 11:02 AM EDT) Parathyroid Hormone, Intact 82.8(H) 8.7 - 77.1 pg/mL See order comments 01/22/2025 11:0 2 AM EDT 01/22/2025 11:02 AM EDT us Ta Merida MD LAB [id number] SOLICITED RESULTS Final Result [place] See order comments [place] [address] documented in this encounter Visit Diagnoses Not on filedocumented in this encounter Care Teams [employer] Driver Relationship Specialty Start Date End Date Semaj Mckeon MD [facility] [place] [address] PCP - General 08/07/20 documented as of this encounter
--- OUTSIDE RECORDS SUMMARY | 2025-01-26 08:59 | XMS_ITS | Patient Health Record ---
Author Organization [facility] Address [address] [place] [id number] Care Team Providers Care Music Manager Name Role Phone Mike HUNG, Lindsay Primary Care Provider Black Owens [phone] Reason For Referral No Information Plan Of Treatment No Information Insurance Providers Payer Name Payer Address Payer Phone Subscriber Number Group Number Insured Name Patient Relationship to Insured Coverage Start Date Coverage End Date MEDICARE OF [place] [address] [place] ROSE [phone] [id number] MEÑO ONEIL Self - patient is the insured [facility] [address] [place] [address] [id number] MEÑO ONEIL Self - patient is the insured
== END 2025-01-24 06:16 | disposition home or self-care (01) ==
LOC: HO.HMGCLNP 06:15
PROVIDERS: Visit Provider Internal Medicine Nephrology
DX: I13.0 Hypertensive heart and chronic kidney disease with heart failure and stage 1 through stage 4 chronic kidney disease, or unspecified chronic kidney disease (principal); N18.4 Chronic kidney disease, stage 4 (severe)
CPT/HCPCS: 82570; 84156

== ENCOUNTER 2025-03-05 08:25 | Outpatient (REF) | payer MEDICARE, SELFPAY ==
[2025-03-05 12:50] LABS: Alanine Aminotransferase 13 U/L (0-31); Aspartate Amino Transferase 30 U/L (5-31); Cholesterol 103 mg/dL (<200); HDL Cholesterol 36 mg/dL (>40); Triglycerides 47 mg/dL (<150)
[2025-03-05 12:59] LABS: Hemoglobin A1C 189.9981 umol/L; Total Hemoglobin (HGBA1C) 3049.0387 umol/L
[2025-03-05 13:09] LABS: Free T4 (Free Thyroxine) 1.14 ng/dL (0.71-1.85); Thyroid Stimulating Hormone 2.00 uIU/mL (0.32-4.0)
== END 2025-03-05 08:26 | disposition home or self-care (01) ==
LOC: HO.HMGCLDS 08:25
PROVIDERS: PCP Internal Medicine; Visit Provider Internal Medicine
DX: E11.42 Type 2 diabetes mellitus with diabetic polyneuropathy (principal); E03.9 Hypothyroidism, unspecified; E78.5 Hyperlipidemia, unspecified; E55.9 Vitamin D deficiency, unspecified
CPT/HCPCS: 36415; 80061; 82306; 83036; 84439; 84443; 84450; 84460

== ENCOUNTER 2025-04-21 12:49 | Outpatient (AMB) | payer MEDICARE, SELFPAY ==
--- NOTE | 2025-04-21 12:52 | MHC.PC.OV ---
Vital Signs 04/21/25 12:56 Height 5 ft 2 in Weight 153 lb BMI 28.0 BP 124/68 Blood Pressure Location Rt radial Position Sitting Pulse 71 Pulse Source Pulse Oximeter Pulse Oximetry (%) 95 Oxygen Delivery Method Room Air Intake Visit Reasons: ED f/u pneumonia Ict Teacher Required: No Accompanied by: Self / Same As Patient Allergies No Known Allergies (No Known Allergies*) Allergy (Verified 04/21/25 12:56) Tobacco use date assessed: 09/14/24 Fall risk assessment: No Falls in past year Last assessed Fall Risk: 04/21/25 Dental Screening Dental Screen Date: 09/14/24 HPI HPI Comments History of Present Illness Details Patient is an 84-year-old female who is here for a hospital discharge follow up. She has a past medical history of DM2, AFib on apixaban, HTN, CKD, HLD, PVD, CHF and chronic anemia who went to the emergency room at [facility] on April 04 complaining of flu-like symptoms. She came via EMS and EMS reported her O2 sat was 86% and she had a temperature of 101 degrees F. She had WBC of 11.1 H&H of 10.8 and 31.7, creatinine of 2.19 BUN of 48, GFR 22, random glucose 231, calcium 8.3 and albumin 2.9, BNP 586. Chest x-ray showed that her heart size is upper limit normal with a diffuse bilateral interstitial opacities and trace pleural effusions with right greater than left. She was admitted for the treatment of community acquired pneumonia. Her EKG showed sinus bradycardia with a heart rate in the 40s to 50s. She was on nasal cannula oxygen and eventually weaned off, she was given IV ceftriaxone and azithromycin and was discharged with Vantin to complete 5 days and azithromycin to complete 3 days. She was discharged on April 05. On April 12, she saw her lamination assembler at [facility], Dr. Griffin. Her lamination assembler notes say that she had felt better and had her cough and improved significantly and she was not have any chest discomfort dizziness or heart palpitations. Her EKG in his office also showed sinus bradycardia. So he discontinued her metoprolol and can you continued diltiazem at the same dose, he told her to continue to monitor her blood pressure and pulse and to let him know if her heart rate went up, he also increased lisinopril to 20 mg daily and his final thought was that he might need add hydralazine. She was told to monitor her blood pressure and heart rate follow up with Cardiology in 1 month. Today she is here with her family who are concerned about her traveling to [place] for her grandson's wedding 05/11-05/14. Apparently Dr. Griffin had recommended she not travel but to track her vitals and check with his office prior to departure. They have been in contact with the triage nurse and plan on doing this. Today, she has a daily vital chart she has brought in with her highest blood pressure being the day after her doctor's visit of 178/49 and a heart rate of 62 and her lowest being 124/43 with a heart rate of 70. Her heart rates are all in the 60s and 70's and most of her blood pressures are WNL. Her weights are all 150-152lbs. She takes the vitals upon waking each day. She denies chest pain, coughing, fevers, shortness of breath, dizziness, >2lb weight gain in 2 days; she tells me she feels back to normal and has no complaints. She did complete her antibiotics from her hospital stay. 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 1. Little interest or pleasure in doing things: not at all 2. Feeling down, depressed, or hopeless: not at all 3. Trouble falling or staying asleep, or sleeping too much: not at all 4. Feeling tired or having little energy: not at all 5. Poor appetite or overeating: not at all 6. Feeling bad about yourself - or that you are a failure or have let yourself or your family down: not at all 7. Trouble concentrating on things, such as reading the newspaper or watching television: not at all 8. Moving or speaking so slowly that other people could have noticed. Or the opposite - being so fidgety or restless that you have been moving around a lot more than usual: not at all 9. Thoughts that you would be better off or of hurting yourself in some way: not at all Total score: 0 Depression Screening Interpretation: Negative Depression Screening Done: Yes Source: Developed by Drs. Black Frank, Wendy Lugo, Ryan Pineda and colleagues, with an educational kathi from [employer]. Thrive Questionnaire Date Thrive assessed: 09/14/24 I am a: Patient What is your living situation today?: I have a steady place to live Within the past 12 months, did the food you bought not last and you didn't have the money to get more?: Never true Within the past 12 months, did you worry whether your food would run out before you got money to buy more?: Never true Do you have trouble paying for medicines?: No Do you have trouble getting transportation to medical appointments?: No Do you have trouble paying your heating and electricity bill?: No Do you have trouble taking care of your child, family member or friend?: No Do you have trouble with day-to-day activities such as bathing, preparing meals, shopping, managing finances, etc.?: No Are you currently unemployed and looking for a job?: No Are you interested in more education?: No THRIVE Score: 0 AUDIT C Alcohol Use Questionnaire (AUDIT-C) 1. How often do you have a drink containing alcohol?: Never 3. How often do you have six or more drinks on one occasion?: Never Total Score: 0 LOC-7 AMB Questionnaire LOC-7 Date LOC - 7 assessed: 04/21/25 Feeling nervous, anxious, or on edge: 0 = Not at all Not being able to stop or control worryin = Not at all Worrying too much about different things: 0 = Not at all Trouble relaxin = Not at all Being so restless that it is hard to sit still: 0 = Not at all Becoming easily annoyed or irritable: 0 = Not at all Feeling afraid as if something awful might happen: 0 = Not at all Total LOC-7 score (0-4 normal; 5-9 mild; 10-14 moderate; 15-21 severe): 0 Source: Developed by Drs. Black Frank, Wendy Lugo, Ryan Pineda and colleagues, with an educational kathi from [employer]. LOC-7 Assessment Billing LOC-7 Assessment Tool: LOC-7 Assessment 35158 Review of Systems Const All systems reviewed & are unremarkable except as noted in HPI and below Physical exam (Primary Care) Tobacco/Smoking Status: Tobacco use Status Tobacco use date assessed 09/14/24 11/18/24 10:22 Patient Tobacco Use Status Never used Tobacco 11/18/24 10:22 e-Cigarette/Vaping Use Never Used 11/18/24 10:22 Depression Screening Interpretation: Negative Thrive Assessment: Date of Thrive Assessment Date Thrive assessed 09/14/24 12/09/24 08:05 Const General: cooperative, healthy appearing, comfortable, no acute distress and well developed Orientation/consciousness: patient oriented x3 Limitations: no limitations HENMT Head: Yes normal to inspection Ears: hearing grossly normal bilaterally General nose exam: Normal external nose present Face and sinus: Yes normal facial exam Eyes General: appearance normal, both eyes and all related structures Neck Neck: Yes normal visual inspection and Yes full ROM Resp Effort & Inspection: normal respiratory effort and able to speak in complete sentences Auscultation: clear to auscultation bilaterally Cardio Rate: regular rate Rhythm: regular rhythm Heart sounds: normal S1 and S2 Skin General skin exam: no rashes or lesions noted Neuro General: patient oriented x3 Extrem General: Yes normal to inspection Coding Level of Care Code Est Pt Level 4 (56971) Diagnoses Hospital discharge follow-up Z09 Additional Codes LOC-7 Assessment Billing - LOC-7 Assessment Tool: LOC-7 Assessment 83853 ([id number]) Assessment & Plan Assessment & Plan (1) Hospital discharge follow-up: Code(s): Z09 - Encounter for follow-up examination after completed treatment for conditions other than malignant neoplasm Category: Medical Plan: - It appears she has recovered from her CAP - The medication changes Cardiology made appear to be working well for her. - Continue charting BP and HR and weight daily and follow up with Dr Rign office prior to [place] trip. - Sent message to Mike MCKEON to follow up on diabetic shoes for patient as it was originally started on 06/26/23 but never got done, despite Dr Mckeon and nursing sending everything the [facility] asked for back then.
[2025-04-21 12:56] VITALS: BP 124/68; PULSE 71; O2SAT 95; BMI 28.0
--- OUTSIDE RECORDS SUMMARY | 2025-04-21 17:34 | XMS_ITS | Clinical Summary ---
Author Organization [facility] Address [address] [place] [address] Phone Care Team Providers Care Core Feeder Name Role Phone Semaj Mckeon MD Primary Care Provider +1- [phone] Allergies No known active allergies Medications Multiple Vitamins-Supervisor Record Press als (Multivitamin Adults 50+) tablet Take 1 [...] day 90 tablet 3 4 025 Active insulin lispro protamine-insu david lispro (HumaLOG MIX 50/50 KWIKPEN) (50-50) 100 UNIT/ML inj pen Inject into the skin. Active spironolactone (ALDACTONE) 25 MG tablet TAKE 1/2 TABLET(12.5 MG) BY MOUTH 1 TIME EACH DAY 45 tablet 3 5 Active Active Problems Problem Noted Date Diagnosed Date Nonrheumatic aortic valve stenosis 09/21/2024 Asymptomatic carotid artery stenosis 07/01/2024 Type 2 diabetes mellitus wit h complication, [...] 02/28/20 21 Proteinuria, not otherwise specified 02/27/2021 Chronic diastolic heart failure 08/21/2020 Overview (11/01/2024): Last Assessment & Plan: She appears euvolemic. We will continue current dose furosemide. We will repeat echocardiogram. Resolved Problems Problem Noted Date Diagnosed Date [...] Encounters Date Type Department Care Team Description 04/21/2025 Documentation Only [facility] [address] [address] Ta Merida MD 04/15/2025 Office Communication [facility] [address] [phone] Ilir Ortega 04/04/2025 Documentation Only [facility] [address] [address] Ta Merida MD 04/04/2025 Documentation Only [facility] [address] [address] Ta Merida MD 04/04/2025 Documentation Only [facility] [address] [address] Ta Merida MD 02/02/2025 8:40 AM EDT Office Visit [facility] [address] [address] Ta Mreida MD Chronic kidney disease, stage 4 (severe) (HCC) (Primary Dx); Cyst of kidney; Hypertension; 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); Paroxysmal atrial fibrillation (HCC); Proteinuria, not otherwise specified; Type 2 diabetes mellitus with complication, not otherwise specified (HCC); Asymptomatic carotid artery stenosis <Unspecified side>; Anemia in chronic kidney disease; Other acute kidney failure (HCC) 01/31/2025 Orders Only [facility] [address] [address] Ta Merida MD Chronic kidney disease, stage 4 (severe) ([facility]); Anemia in chronic kidney disease; Other acute kidney failure (HCC); Hypertension; 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); Hypothyroidism, not otherwise specified; Paroxysmal atrial fibrillation ([facility]); Personal history of breast cancer; Proteinuria, not otherwise specified; Type 2 diabetes mellitus with complication, not otherwise specified ([facility]) 01/25/2025 Office Communication [facility] [address] [address] Ta Merida MD 01/24/2025 Office Communication [facility] [address] [address] Ta Merida MD 01/22/2025 Orders Only [facility] [address] [address] Ta Merida MD from Last 3 Months Immunizations Immunization Administration Dates Next Due Influenza Split High [...] Sign Reading Time Taken Comments Blood Pressure 110/76 02/02/2025 8:54 AM EDT Pulse 59 02/02/2025 8:54 AM EDT Temperature - - Respiratory Rate - - Oxygen Saturation 97% 02/02/2025 8:54 AM EDT Inhaled Oxygen Concentration - - Weight 68 kg (150 lb) 02/02/2025 8:54 AM EDT Height 165.1 cm (5' 5 ) 04/27/2024 10:32 AM EDT Body Mass Index 24.96 04/27/2024 10:32 AM EDT Plan of Treatment Upcoming Encounters Date Type Department Care Team (Late st Contact Info) Description 05/05/2025 Orders Only [facility] 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 [address] [address] Ta Merida MD [address] [address] Health Maintenance Due Date Last Done Comments Pneumococcal Vaccine: 50+ Years (2 of 2 - PPSV23, PCV20, or PCV21) 06/27/2017 05/02/2017 Diabetes: Ophthalmology Exam 04/08/2021 Diabetes: Pedal Pulse Checked 04/08/2021 Diabetes: Sensory Foot Exam 04/08/2021 Diabetes: Visual Foot Exam 04/08/2021 Diabetes: Hemoglobin A1C 01/30/2023 023, 01/18/2021 Influenza Vaccine (#1) 2025 9, 05/04/2018, 05/02/2017 Pneumococcal Vaccine: Peds ( 0 to 5 Years) and At-Risk Patients (6 to 49 Years) Discontinued 05/02/2017 Hepatitis B Vaccine Aged Out No longe r eligible based on patient's age to complete this topic Procedures Procedure Name Priority Date/Time Associated Diagnosis Comments PROTEIN / CREATININE RATIO, URINE Routine 01/24/2025 10:04 AM EDT Chronic kidney disease, stage 4 (severe) (HCC) Anemia in chronic kidney disease Other acute kidney failure (HCC) Hypertension 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) Hypothyroidism, not otherwise specified Paroxysmal atrial fibrillation (HCC) Personal history of breast cancer Proteinuria, not otherwise specified Type 2 diabetes mellitus with complication, not otherwise specified (HCC) PTH, INTACT (HC) Routine 01/22/2025 11:0 2 AM EDT CBC AND DIFFERENTIAL Routine 01/22/2025 11:02 AM EDT Chronic kidney disease, stage 4 (severe) (HCC) Anemia in chronic kidney disease Other acute kidney failure (HCC) Hypertension 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) Hypothyroidism, not otherwise specified Paroxysmal atrial fibrillation (HCC) Personal history of breast cancer Proteinuria, not otherwise specified Type 2 diabetes mellitus with complication, not otherwise specified (HCC) VITAMIN D 25 HYDROXY Routine 01/22/2025 11:02 AM EDT Chronic kidney disease, stage 4 (severe) (HCC) Anemia in chronic kidney disease Other acute kidney failure (HCC) Hypertension 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) Hypothyroidism, not otherwise specified Paroxysmal atrial fibrillation (HCC) Personal history of breast cancer Proteinuria, not otherwise specified Type 2 diabetes mellitus with complication, not otherwise specified (HCC) PHOSPHATE ( PHOSPHORUS) Routine 01/22/2025 11:02 AM EDT Chronic kidney disease, stage 4 (severe) (HCC) Anemia in chronic kidney disease Other acute kidney failure (HCC) Hypertension 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) Hypothyroidism, not otherwise specified Paroxysmal atrial fibrillation (HCC) Personal history of breast cancer Proteinuria, not otherwise specified Type 2 diabetes mellitus with complication, not otherwise specified (HCC) MAGNESIUM Routine 01/22/2025 11:02 AM EDT Chronic kidney disease, stage 4 (severe) (HCC) Anemia in chronic kidney disease Other acute kidney failure (HCC) Hypertension 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) Hypothyroidism, not otherwise specified Paroxysmal atrial fibrillation (HCC) Personal history of breast cancer Proteinuria, not otherwise specified Type 2 diabetes mellitus with complication, not otherwise specified (HCC) URIC ACID Routine 01/22/2025 11:02 AM EDT Chronic kidney disease, stage 4 (severe) (HCC) Anemia in chronic kidney disease Other acute kidney failure (HCC) Hypertension 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) Hypothyroidism, not otherwise specified Paroxysmal atrial fibrillation (HCC) Personal history of breast cancer Proteinuria, not otherwise specified Type 2 diabetes mellitus with complication, not otherwise specified (HCC) COMPREHENSIVE METABOLIC PANEL Routine 01/22/2025 11:02 AM EDT Chronic kidney disease, stage 4 (severe) (HCC) Anemia in chronic kidney disease Other acute kidney failure (HCC) Hypertension 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) Hypothyroidism, not otherwise specified Paroxysmal atrial fibrillation (HCC) Personal history of breast cancer Proteinuria, not otherwise specified Type 2 diabetes mellitus with complication, not otherwise specified (HCC) HEMOGLOBIN A1C Routine 10/31/2022 9:10 AM EDT from Last 3 Months or Most Recently Relevant to Health Maintenance Results * (ABNORMAL) Protein, Total, Random Urine w/Creatinine (Protein/Creat Ratio) (01/24/2025 10:04 AM EDT) Creatinine, Urine 27.81 mg/dL See order comments Protein Urine Random 48(H) <12 mg/dL See order comments Protein/Creati nine Ratio, Urine 1.73(H) <0.2 See order comments Comment: The spot urine protein:creatinine ratio may increase to 0.3 during normal . Urine specimen (specimen) Urine specimen obtained by clean catch procedure / Unknown 01/24/2025 10:04 AM EDT 01/24/2025 10:04 AM EDT us Ta Merida MD LAB URINE ORDERABLES Edited R esult - Final [place] See order comments [place] [address] * (ABNORMAL) PTH, Intact (01/22/2025 11:02 AM EDT) Parathyroid Hormone, Intact 82.8(H) 8.7 - 77.1 pg/mL See order comments 01/22/2025 11:0 2 AM EDT 01/22/2025 11:02 AM EDT us Ta Merida MD LAB [id number] SOLICITED RESULTS Final Result Performing Organization Address [facility] Co de Phone Number [place] See order comments [place] [address] * (ABNORMAL) Vitamin D 25 Hydroxy (01/22/2025 11:02 AM EDT) Vitamin D, 25-Hydroxy 25.4(L) >30 ng/mL See order comments Comment: Health Based Reference Values* < 20 ng/mL Deficient 20-30 ng/mL Insufficient > 30 ng/mL Sufficient *Paul KENNY. N Engl J Med. 2007;357:266-280 There is no well-established upper level of normal vitamin D levels. Some laboratories use 50 ng/mL as an upper limit of normal. However, toxicity is patient-dependent and may occur at any level. Careful correlation with the patient's presentation is necessary and, if there is concern for vitamin D toxicity, treatment should be considered irrespective of the serum level. Care must be taken in interpreting Vitamin D results from different laboratories and methodologies. Published data demonstrated that results from patients undergoing hemodialysis may show a negative bias when tested with various automated 25-OH vitamin D assays when compared to LC-MS/MS. When testing samples from patients whose predominant form of Vitamin D is Vitamin D2, such as patients receiving Vitamin D2 supplementation, results that are subtherapeutic should be confirmed with another method such as LC-MS/MS. Blood specimen (specimen) Venous blood / Unknown 01/22/2025 11:02 AM EDT 01/22/2025 11:02 AM EDT us Ta Merida MD LAB BLOOD ORDERABLES Final Re sult [place] See order comments [place] [address] * (ABNORMAL) CBC and Differential (01/22/2025 11:02 AM EDT) WBC 7.0 4.8 - 10.8 X10*3/uL See order comments RBC 3.64(L) 4.20 - 5.50 X10*6/uL See order comments Hgb 11.6(L) 12.0 - 16.0 g/dl See order comments Hematocrit 36.5(L) 37.0 - 47.0 % See order comments MCV 100.3(H) 80.0 - 98.0 fL See order comments MCH 31.9 27.0 - 33.0 pg See order comments MCHC 31.8 31.0 - 35.0 g/dl See order comments RDW 13.8 11.0 - 16.0 % See order comments Platelets 302 160 - 400 X10*3/uL See order comments MPV 9.8 9.4 - 12.3 fL See order comments Neutrophils % Auto 67.5 45 - 73 % See order comments Immature Granulocytes 0.3 0.0 - 0.4 % See order comments Lymphocytes Relative 16.0(L) 20 - 40 % See order comments Monocytes 9.1 2 - 11 % See order comments Eosinophils Relative 6.1(H) 0 - 4 % See order comments Basophils Relative 1.0 0 - 2 % See order comments nRBC Count 0.0 0.0 - 0.2 /100WBC See order comments Neutrophils Absolute 4.7 2.0 - 8.3 x10*3/uL See order comments Immature Grans (Absolute) 0.02 0.00 - 0.03 X10*3/uL See order comments Lymphocytes Absolute 1.1(L) 1.2 - 4.9 X10*3/uL See order comments Monocytes Absolute 0.6 0.1 - 1.2 X10*3/uL See order comments Eosinophils Absolute 0.4 0.0 - 0.4 X10*3/uL See order comments Basophils Absolute 0.1 0.0 - 0.2 X10*3/uL See order comments NRBC Absolute 0.000 0.0 - 0.012 X10*3/uL See order comments Blood specimen (specimen) Venous blood / Unknown 01/22/2025 11:02 AM EDT 01/22/2025 11:02 AM EDT us Ta Merida MD LAB BLOOD ORDERABLES Final Re sult Performing Organization Address [facility] de Phone Number [place] See order comments [place] [address] * (ABNORMAL) Uric Acid (01/22/2025 11:02 AM EDT) Uric Acid 8.4(H) 2.4 - 5.7 mg/dL See order comments Blood specimen (specimen) Venous blood / Unknown 01/22/2025 11:02 AM EDT 01/22/2025 11:02 AM EDT us Ta Merida MD LAB BLOOD ORDERABLES Final Re sult Performing Organization Address [facility] de Phone Number [place] See order comments [place] [address] * Phosphorus (01/22/2025 11:02 AM EDT) Phosphorus, Serum 4.0 2.7 - 4.5 mg/dL See order comments Blood specimen (specimen) Venous blood / Unknown 01/22/2025 11:02 AM EDT 01/22/2025 11:02 AM EDT us Ta Merida MD LAB BLOOD ORDERABLES Final Re sult Performing Organization Address [facility] de Phone Number [place] See order comments [place] [address] * Magnesium (01/22/2025 11:02 AM EDT) Magnesium 2.1 1.6 - 2.6 mg/dL See order comments Blood specimen (specimen) Venous blood / Unknown 01/22/2025 11:02 AM EDT 01/22/2025 11:02 AM EDT us Ta Merida MD LAB BLOOD ORDERABLES Final Re sult [place] See order comments [place] [address] * (ABNORMAL) Comprehensive Metabolic Panel (01/22/2025 11:02 AM EDT) Sodium 139 135 - 145 mmol/L See order comments Potassium 4.7 3.3 - 5.1 mmol/L See order comments Chloride 111(H) 96 - 108 mmol/L See order comments Bicarbonate (CO2) 21(L) 22 - 29 mmol/L See order comments Anion Gap 12 12 - 20 See order comments BUN 63(H) 9 - 16 mg/dL See order comments Creatinine Serum 2.20(H) 0.5 - 1.4 mg/dL See order comments eGFR (Calc) 21 See orde r comments Comment: Chronic Kidney Disease: Estimated GFR < 60 mL/min/1.73m2 Severe Kidney Disease: Estimated GFR < 15 mL/min/1.73m2 Glucose 97 60 - 115 mg/dL See order comments Calcium 8.9 8.4 - 10.2 mg/dL See order comments Total Bilirubin 0.4 0.0 - 1.0 mg/dL See order comments AST (SGOT) 24 5 - 31 U/L See orde r comments ALT (SGPT) 12 0 - 31 U/L See orde r comments Total Protein 7.2 6.5 - 8.0 g/dL See order comments Albumin 3.9 3.5 - 5.0 g/dL See order comments Alkaline phosphatase 86 39 - 117 U/L See order comments Blood specimen (specimen) Venous blood / Unknown 01/22/2025 11:02 AM EDT 01/22/2025 11:02 AM EDT us Ta Merida MD LAB BLOOD ORDERABLES Final Re sult [place] See order comments [place] [address] * (ABNORMAL) Hemoglobin A1c (10/31/2022 9:10 AM EDT) Glycated Hemoglobin 8.3(H) <6.5 % [facility] (MEDICITY) Estimated Average Glucose 192 mg/dL [facility] (MEDICITY) Performing Lab Performing Lab(H) [place] (MEDICITY) Comment: [employer], a member of [address] [address] [employer] - Gaviota Mejía MD 10/31/2022 9:10 AM EDT 10/31/2022 9:10 AM EDT us Ta Merida MD LAB BLOOD ORDERABLES Final Re sult [place] (MEDICITY) from Last 3 Months or Most Recently Relevant to Health Maintenance Insurance [facility] Medicare Care Teams Core Feeder Relationship Specialty Start Date End Date Semaj Mckeon MD [address] [place] [address] PCP - General 08/07/20
--- OUTSIDE RECORDS SUMMARY | 2025-04-21 17:35 | XMS_ITS | Encounter Summary ---
Author Organization [facility] Address [address] [address] Phone Care Team Providers Care Telephone Clerk Name Role Phone Semaj Mckeon MD Primary Care Provider +1- [phone] Encounter Details Date Type Department Care Team (Late st Contact Info) Description 04/15/2025 Office Communication [facility] [address] [address] Ilir Ortega [address] [phone] Social History Tobacco Use Types Packs/Day Years [...] Orders Only [facility] [address] [address] Ta Merida MD [address] [phone] Chronic kidney disease, stage 4 [...] Office Visit [facility] [address] [address] Ta Merida MD [address] [address] documented as of this encounter Visit Diagnoses Not on filedocumented in this encounter Care Teams Telephone Clerk Relationship Specialty Start Date End Date Semaj Mckeon MD [facility] [place] [address] PCP - General 08/07/20 documented as of this encounter
--- OUTSIDE RECORDS SUMMARY | 2025-04-21 17:35 | XMS_ITS | Encounter Summary ---
Author Organization [facility] Address [address] [address] Phone Care Team Providers Care Parts Remover Name Role Phone Semaj Mckeon MD Primary Care Provider +1- [phone] Encounter Details Date Type Department Care Team (Late st Contact Info) Description 04/21/2025 Documentation Only [facility] [address] [address] Ta Meirda MD [facility] [address] Social History Tobacco Use Types [...] Orders Only [facility] [address] [address] Ta Merida MD [facility] [address] [address] Chronic kidney disease, stage 4 [...] Office Visit [facility] [address] [phone] Ta Merida MD [address] [phone] documented as of this encounter Visit Diagnoses Not on filedocumented in this encounter Care Teams Parts Remover Relationship Specialty Start Date End Date Semaj Mckeon MD [facility] [place] [address] PCP - General 08/07/20 documented as of this encounter
--- OUTSIDE RECORDS SUMMARY | 2025-04-21 17:35 | XMS_ITS | Patient Health Record ---
Author Organization [facility] Address [address] [place] [address] Care Team Providers Care Awnings Mechanic Name Role Phone Mike HUNG, Lindsay Primary Care Provider Black Owens [phone] Reason For Referral No Information Plan Of Treatment No Information Insurance Providers Payer Name Payer Address Payer Phone Subscriber Number Group Number Insured Name Patient Relationship to Insured Coverage Start Date Coverage End Date MEDICARE OF [place] [address] [place] [phone] [id number] MEÑO ONEIL Self - patient is the insured [facility] [address] [place] [address] [id number] MEÑO ONEIL Self - patient is the insured
== END 2025-04-21 13:35 | disposition home or self-care (01) ==
LOC: HO.HMCC 12:49
PROVIDERS: PCP Internal Medicine; Visit Provider Physician Assistant
DX: Z09 Encounter for follow-up examination after completed treatment for conditions other than malignant neoplasm (principal)

== ENCOUNTER → 2025-04-21 12:49 | Outpatient (BNVA) | payer MEDICARE, SELFPAY | PROVIDERS: PCP Internal Medicine; Visit Provider Physician Assistant | DX: E11.22 Type 2 diabetes mellitus with diabetic chronic kidney disease (principal); E11.51 Type 2 diabetes mellitus with diabetic peripheral angiopathy without gangrene; I13.0 Hypertensive heart and chronic kidney disease with heart failure and stage 1 through stage 4 chronic kidney disease, or unspecified chronic kidney disease; I50.9 Heart failure, unspecified; N18.9 Chronic kidney disease, unspecified; E78.5 Hyperlipidemia, unspecified; D63.1 Anemia in chronic kidney disease; Z09 Encounter for follow-up examination after completed treatment for conditions other than malignant neoplasm | CPT/HCPCS: 96127; 99212 ==

== ENCOUNTER → 2025-05-21 23:59 | Outpatient (BNV) | payer MEDICARE, SELFPAY | PROVIDERS: PCP Internal Medicine; Visit Provider Internal Medicine | DX: N31.9 Neuromuscular dysfunction of bladder, unspecified (principal); E11.9 Type 2 diabetes mellitus without complications; I10 Essential (primary) hypertension | CPT/HCPCS: G0179 ==

== ENCOUNTER 2025-06-08 08:30 | Outpatient (AMB) | payer MEDICARE, SELFPAY ==
[2025-06-08 08:32] VITALS: BP 110/70; PULSE 69; RESP 16; TEMP 36.4; O2SAT 99; BMI 26.7
--- NOTE | 2025-06-08 08:32 | MHC.PC.OV ---
Vital Signs 06/08/25 08:32 Height 5 ft 2 in Weight 146 lb BMI 26.7 BP 110/70 Blood Pressure Location Rt brachial Position Sitting Respiration 16 Pulse 69 Pulse Source Pulse Oximeter Temp 97.6 F Temp Source Oral Pulse Oximetry (%) 99 Oxygen Delivery Method Room Air Intake Visit Reasons: 6 months f/up - see comments Intake Note: Pt is here today for her 6mo. f/u Allergies No Known Allergies (No Known Allergies*) Allergy (Verified 06/08/25 08:43) Medication List - Last Reconciled 06/08/25 by Lindsay Mckeon MD apixaban 2.5 mg PO BID atorvastatin 20 mg PO DAILY blood sugar diagnostic As directed blood sugar diagnostic (Accu-Chek Karlie Plus test strips) As directed 4 times a day blood sugar diagnostic (Accu-Chek Guide test strips) Check blood sugar 4 times per day as directed. blood-glucose meter (Accu-Chek Karlie Plus Meter) As directed 4 times a day cholecalciferol (vitamin D3) 50 mcg PO DAILY [diabetic shoes As directed] [Diabetic shoes with inserts As directed NS] diltiazem HCl ER 300 mg PO DAILY furosemide (Lasix) 20 mg PO DAILY insulin glargine (Lantus Solostar U-100 Insulin) 10 units subcut QPM insulin lispro (Humalog KwikPen (U-100) Insulin) Please administer before meals 3 times a day per sliding scale coverage, maximum 30 units per day 90 days lancets check blood sugar 4 times per day levothyroxine 150 mcg PO DAILY lisinopril 20 mg PO DAILY metoprolol succinate ER 200 mg PO DAILY spironolactone 0.5mg qd Tobacco use date assessed: 06/08/25 Fall risk assessment: No Falls in past year Last assessed Fall Risk: 06/08/25 Dental Screening Dental Screen Date: 06/08/25 Did you have a dental visit in the last 12 months?: No Did you have a dental problem in the last 6 months where you did not have access to dental care?: No Was dental information given to patient?: Patient declined HPI 6 months f/up - see comments HPI Details -84 year-old lady with diabetes mellitus, dyslipidemia , chronic kidney disease stage 4, followed by Dr. 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 Currently taking Humalog KwikPen on a sliding scale coverage and Lantus Solostar 17 units at night, taking levothyroxine 50 mcg daily, and atorvastatin 20 mg daily. 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 Vitamin D deficiency Surgical History Hx of left mastectomy Hx of tubal ligation Hx of lumpectomy Hx of hysterectomy Family History Father Coronary artery disease Diabetes mellitus Mother Diabetes mellitus Social History Household Members: None Housing: House Alcohol intake: never Patient Tobacco Use Status: Never used Tobacco e-Cigarette/Vaping Use: Never Used Current occupational status: retired Cognitive needs: No Hearing needs: No Vision needs: Yes Questionnaire Thrive Questionnaire Date Thrive assessed: 09/14/24 LOC-7 AMB Questionnaire LOC-7 Date LOC - 7 assessed: 04/21/25 Source: Developed by Drs. Black Frank, Wendy Lugo, Ryan Pineda and colleagues, with an educational kathi from [employer]. Physical exam (Primary Care) Vital Signs: Last Vital Signs Temp 97.6 F 06/08/25 08:32 Pulse 69 06/08/25 08:32 Resp 16 06/08/25 08:32 BP 110/70 06/08/25 08:32 Pulse Ox 99 06/08/25 08:32 Oxygen Delivery Method Room Air 06/08/25 08:32 BMI result Body Mass Index 26.7 Tobacco/Smoking Status: Tobacco use Status Tobacco use date assessed 06/08/25 06/08/25 08:36 Patient Tobacco Use Status Never used Tobacco 06/08/25 08:36 e-Cigarette/Vaping Use Never Used 06/08/25 08:36 Thrive Assessment: Date of Thrive Assessment Date Thrive assessed 09/14/24 06/08/25 08:36 Results AMB Hemoglobin A1c AMB Hemoglobin A1c 7.2 % Last Edit by Elva Galaena CMA on 06/08/25 09:02 Coding Diagnoses Primary hypertension I10 Hypertension type: primary hypertension Dyslipidemia E78.5 Acquired hypothyroidism E03.9 Hypothyroidism type: acquired Type 2 diabetes mellitus with diabetic polyneuropathy E11.42 Assessment & Plan Assessment & Plan (1) Hypertension: Code(s): I10 - Essential (primary) hypertension Category: Medical Qualifiers: Hypertension type: primary hypertension Qualified Code(s): I10 - Essential (primary) hypertension (2) Dyslipidemia: Code(s): E78.5 - Hyperlipidemia, unspecified Category: Medical (3) Hypothyroidism: Code(s): E03.9 - Hypothyroidism, unspecified Category: Medical Qualifiers: Hypothyroidism type: acquired Qualified Code(s): E03.9 - Hypothyroidism, unspecified (4) Type 2 diabetes mellitus with diabetic polyneuropathy: Code(s): E11.42 - Type 2 diabetes mellitus with diabetic polyneuropathy Category: Medical Orders: Orders AMB Hemoglobin A1c Today E11.42 - Type 2 diabetes mellitus with diabetic polyneuropathy Free T4 (Free Thyroxine) Today E03.9 - Hypothyroidism, unspecified, E11.42 - Type 2 diabetes mellitus with diabetic polyneuropathy, E78.5 - Hyperlipidemia, unspecified, I10 - Essential (primary) hypertension Aspartate Amino Transferase Today E03.9 - Hypothyroidism, unspecified, E11.42 - Type 2 diabetes mellitus with diabetic polyneuropathy, E78.5 - Hyperlipidemia, unspecified, I10 - Essential (primary) hypertension Lipid Panel Today E03.9 - Hypothyroidism, unspecified, E11.42 - Type 2 diabetes mellitus with diabetic polyneuropathy, E78.5 - Hyperlipidemia, unspecified, I10 - Essential (primary) hypertension Thyroid Stimulating Hormone Today E03.9 - Hypothyroidism, unspecified, E11.42 - Type 2 diabetes mellitus with diabetic polyneuropathy, E78.5 - Hyperlipidemia, unspecified, I10 - Essential (primary) hypertension Alanine Aminotransferase Today E03.9 - Hypothyroidism, unspecified, E11.42 - Type 2 diabetes mellitus with diabetic polyneuropathy, E78.5 - Hyperlipidemia, unspecified, I10 - Essential (primary) hypertension
--- OUTSIDE RECORDS SUMMARY | 2025-06-08 08:48 | XMS_ITS | Patient Health Record ---
Author Organization [facility] Address [address] [place] [id number] Care Team Providers Care Bundler Name Role Phone Mike HUNG, Lindsay Primary Care Provider Black Owens [phone] Reason For Referral No Information Plan Of Treatment No Information Insurance Providers Payer Name Payer Address Payer Phone Subscriber Number Group Number Insured Name Patient Relationship to Insured Coverage Start Date Coverage End Date MEDICARE OF [place] [address] [place] [id number] [id number] MEÑO ONEIL Self - patient is the insured [facility] [address] [place] [address] [id number] MEÑO ONEIL Self - patient is the insured
--- OUTSIDE RECORDS SUMMARY | 2025-06-08 08:48 | XMS_ITS | Clinical Summary ---
Author Organization [address] [place] [address] Address [address] [place] [address] Phone Care Team Providers Care Financial Investment Manager Name Role Phone Lindsay Mckeon MD Primary Care Provider Allergies No known active allergies Medications insulin lispro protamine-insul in lispro (HumaLOG Mix 50-50 KwikPen) 100 unit/mL (50-50) injection pen Inject into the skin. Sliding scale Active spironolactone (ALDACTONE) 25 mg tablet Take 0.5 Tablets by mouth daily. Active atorvastatin (LIPITOR) 20 mg tablet Take 20 mg by mouth daily. - Oral Active levothyroxine (SYNTHROID, LEVOTHROID) 150 mcg tablet Take 150 mcg by mouth daily. - Oral Active cholecalciferol (VITAMIN D-3) 50 mcg (2,000 unit) tablet 1 tablet (2,000 Units total). Take 1,000 mcg by mouth daily. - Oral Active insulin glargine (LANTUS) 100 unit/mL injection Inject 10 Units under the skin at bedtime. Active lisinopriL (PRINIVIL,ZESTR IL) 10 mg tablet Take 2 tablets (20 mg total) by mouth 1 (one) time each day. Active apixaban (Eliquis) 2.5 mg tablet TAKE 1 TABLET BY MOUTH TWICE DAILY 180 tablet 3 10/26/2024 Active dilTIAZem (TIAZAC) 300 mg 24 hr capsule TAKE 1 CAPSULE BY MOUTH DAILY 90 capsule 3 03/22/2025 Active furosemide (LASIX) 20 mg tabletIndicatio ns:edema Take 1 tablet (20 mg total) by mouth 1 (one) time each day. 30 each 2 04/05/2025 Active metoprolol succinate (TOPROL-XL) 200 mg 24 hr tablet Take 1 tablet (200 mg total) by mouth 1 (one) time each day. Do not crush or chew. 30 tablet 11 05/05/2025 Active Active Problems Problem Noted Date Diagnosed Date Rapid heart rate 05/19/2025 Tachy-onur syndrome (CMS/HCC V24, CMS/HCC V28) 05/19/2025 Assessment & Plan (05/19/2025 3:15 PM EDT): S/p Medtronic Micra leadless pacemaker placement. Will continue to monitor with remote and in office device interrogations. Atrial flutter (CMS/HCC V24, CMS/HCC V28) 2024 Pneumonia of both lungs due to infectious organi sm 04/05/2025 Nonrheumatic aortic valve stenosis 09/21/2024 Assessment & Plan (05/19/2025 3:14 PM EDT): Aortic valve stenosis is in the moderate range. Patient is asymptomatic. Will continue to monitor with future echocardiograms. Warning signs of progressive aortic stenosis: chest pain, shortness of breath, palpitations, dizziness, passing out or coming close to passing out. Assessment & Plan (04/12/2025 5:16 PM EDT): Aortic valve stenosis most likely in the moderate range and most recent echocardiogram probably underestimated aortic valve gradient. Will repeat another echocardiogram next year Assessment & Plan (09/21/2024 10:47 AM EST): [...] kidney disease 02/27/2021 Acute nontraumatic kidney injury ([facility] V24) 0 02/27/2021 Chronic kidney disease, stag e 4 (severe) ([facility] V24, [facility] V28) 02/27/2021 Cyst of kidney, acquired 02/27/2021 Hypertension 02/27/2021 Overview (07/01/2024): Last Assessment & Plan: Patient's blood pressure is well controlled in the office with use of a large cuff. Continue her current treatment plan with beta-kenneth, calcium channel kenneth and TONIA inhibitor. Assessment & Plan (05/19/2025 3:13 PM EDT): Blood pressure is well-controlled in the office today at 116/66. Continue diltiazem, lisinopril, metoprolol and spironolactone as prescribed. Assessment & Plan (04/12/2025 5:16 PM EDT): Blood pressure is high. I will discontinue metoprolol and increase lisinopril to 20 mg daily. Most likely, will need to add hydralazine. Hypertensive heart and renal disease with (congestive) heart failure ([facility] V24, [facility] V28) 02/27/2021 Hypothyroidism 02/27/2021 Paroxysmal atrial fibrillation ([facility] V24, [facility] V28) 02/27/2021 Overview (07/01/2024): Permanent Anticoagulated with apixaban [...] regimen for rate control. Assessment & Plan (05/19/2025 3:12 PM EDT): EKG done in the office today shows atrial flutter with variable AV block with a well-controlled rate of 84 bpm. She remains on renally dosed Eliquis (age, creatinine) for [id number] score of 6. Continue to monitor for abnormal bruising or bleeding. Continue diltiazem and metoprolol as prescribed. Assessment & Plan (04/12/2025 5:16 PM EDT): All her EKG showed atrial fibrillation over past many years and surprisingly, EKG during most recent hospital stay showed sinus bradycardia. EKG today in the office also shows sinus bradycardia. Her heart rate has been on lower side, especially during recent hospital stay and I will discontinue metoprolol and continue diltiazem at current dose. She will continue to monitor blood pressure and pulse and notify me with elevated pulse rate. Assessment & Plan (09/21/2024 10:47 AM EST): Orders: ECG 12 lead Proteinuria 02/27/2021 Hyperlipidemia 02/22/2021 Overview (07/01/2024): Last Assessment & Plan: Patient's lipid profile available to us is somewhat outdated but well controlled. Continue statin at current dose. CHF (congestive heart failur e), NYHA class II, chronic, diastolic (CMS/HCC V24, CMS/HCC V28) 08/21/2020 Overview (07/01/2024): Last Assessment & Plan: She appears euvolemic. We will continue current dose furosemide. We will repeat echocardiogram. Assessment & Plan (05/19/2025 3:13 PM EDT): Aside from some mild bilateral lower extremity edema patient appears euvolemic on physical exam. Her weight has been stable. Continue furosemide as prescribed. Patient is encouraged to follow a low-sodium, heart healthy diet, monitor daily weights and contact provider with any sudden increases such as 2 lbs overnight or 4-5 lbs over the course of a week, and/or for worsening shortness of breath and/or increased lower extremity edema. Assessment & Plan (04/12/2025 5:16 PM EDT): Stable. Will continue low-dose furosemide. Assessment & Plan (09/21/2024 10:47 AM EST): She is euvolemic. Will continue low-dose furosemide Cataract 05/05/2019 Overview (07/01/2024): 2018 s/p left surgery DJD (degenerative joint disease) of knee 019 Type 2 diabetes mellitus wit h cataract ([facility] V24, [facility] V28) 05/05/2019 Type 2 diabetes mellitus wit h renal manifestations ([facility] V24, [facility] V28) 05/05/2019 Resolved Problems Problem Noted Date Diagnosed Date Resolved Date Acute hypoxemic respiratory failure ([facility] V24, [facility] V28) 04/04/2025 04/05/2025 Chronic atrial fibrillation ([facility] V24, [facility] V28) 09/21/2024 04/12/2025 Assessment & Plan (04/12/2025 5:16 PM EDT): Orders: ECG 12 lead CBC and differential; Future Assessment & Plan (09/21/2024 10:47 AM EST): Has been chronic. She is on quite high dose metoprolol and diltiazem. I would arrange 24-hour Holter monitor to make sure the dosage remains appropriate for her. Will continue reduced dose Eliquis. Orders: Cardiac holter monitor (<= 48 hours); Future Type 2 diabetes mellitus wit h unspecified complications ([facility] V24, [facility] V28) 04/08/2021 07/01/2024 Encounters Date Type Department Care Team Description 05/30/2025 8:30 AM EST Ancillary Procedure [facility] [address] [place] [phone] Encounter for adjustment or management of cardiac device 05/19/2025 2:40 PM EDT Office Visit [facility] [address] [place] [phone] Maria Eugenia Singleton NP Paroxysmal atrial fibrillation (CMS/HCC V24, CMS/HCC V28) (Primary Dx); CHF (congestive heart failure), NYHA class II, chronic, diastolic (CMS/HCC V24, CMS/HCC V28); Primary hypertension; Nonrheumatic aortic valve stenosis; Tachy-onur syndrome (CMS/HCC V24, CMS/HCC V28) 05/06/2025 Telephone [facility] [address] [place] [phone] Jayda Griffin MD 05/06/2025 Telephone [facility] [address] [place] [phone] Jayda Griffin MD 05/04/2025 3:05 PM EDT - 05/04/2025 5:[address] [facility] Cardiac Demographic Analyst [address] [place] [phone] Rm Vu MD Insert PPM single ventricular 05/03/2025 2:21 PM EDT - 05/05/2025 5:48 PM EDT Hospital Encounter [facility] [address] [place] [phone] Tim Rodriguez MD Bukalo, Nermina, MD Mohani, Priya, MD Bell, Alistair A, MD Atrial flutter with rapid ventricular response (CMS/HCC V24, CMS/HCC V28) (Primary Dx) Discharge Disposition: Home-Health Care Svc 05/03/2025 Telephone [facility] [address] [place] [phone] Jayda Griffin MD 04/18/2025 Telephone [facility] [address] [place] [phone] Jayda Griffin MD 04/12/2025 2:30 PM EDT Office Visit [facility] - [address] [facility] [address] [place] [phone] Jayda Griffin MD Chronic atrial fibrillation (CMS/HCC V24, CMS/HCC V28) (Primary Dx); 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 [address] [place] [phone] Allyson Painting MD Kela, Kashyap Devendrabhai, MD Bell, Alistair A, MD Acute respiratory failure with hypoxia (CMS/HCC V24, CMS/HCC V28) (Primary Dx); Pneumonia of both lungs due to infectious organism, unspecified part of lung Discharge Disposition: [place] [facility] [place] Surgical History Surgery [...] DX:Hist ory of kidney stones Atrial fibrillation (CMS/HCC V24, CMS/HCC V28) DX:Atrial fibrillation (HCC) Carotid stenosis, asymptomatic D X:Carotid stenosis, asymptomatic Hypertension DX:Hypertension Type 2 diabetes mellitus wit h renal manifestations (CMS/HCC V24, CMS/HCC V28) 05/05/2019 DX:Type 2 diabetes mellitus with renal manifestations (HCC) DJD (degenerative joint dise ase) of knee 05/05/2019 DX:DJD (degenerative joint d isease) of knee Cataract 05/05/2019 DX:Cataract; COM MENT: 2018 s/p left surgery Type 2 diabetes mellitus wit h cataract ([facility] V24, [facility] V28) 05/05/2019 DX:Type 2 diabetes mellitus with cataract (HCC) History of cancer of left breast 11/19/2018 DX:History of cancer of left breast; COMMENT: 08/2014 S/p mastectomy;Estrogen receptor negative Pneumonia of both lungs due to infectious organism, unspecified part of lung Social History Tobacco Use Types Packs/Day Years Used Date Smoking Tobacco: Never Smokeless Tobacco: Never Alcohol Use Standard Drinks/Week Comments Not Currently 0 (1 standard drink = 0.6 oz pur e alcohol) Interpersonal Safety Answer Date Record ed Physical Abuse Unrecognized value 05/03/2025 Verbal Abuse Unrecognized value 05/03/2025 Comments Unknown Sex and Gender Information Value Date Recorded Sex Assigned at Not on file Legal Sex Female 9:25 PM EST Gender Identity Not on file Sexual Orientation Not on file Obstetrics History Last Filed Vital Signs Vital Sign Reading Time Taken Comments Blood Pressure 116/66 05/19/2025 2:10 PM EDT Pulse 84 05/19/2025 2:10 PM EDT Temperature 36.4 C (97.5 F) 05/05/2025 11:04 AM EDT Respiratory Rate 16 05/05/2025 11:04 AM EDT Oxygen Saturation 97% 05/19/2025 2:10 PM EDT Inhaled Oxygen Concentration - - Weight 70.3 kg (155 lb) 05/19/2025 2:10 PM EDT Height 165.1 cm (5' 5 ) 05/19/2025 2:10 PM EDT Body Mass Index 25.79 05/19/2025 2:10 PM EDT Plan of Treatment Upcoming Encounters Date Type Department Care Team (Late st Contact Info) Description 05/30/2026 8:30 AM EST Ancillary Procedure [facility] - [address] [facility] [address] [place] [address] Health Maintenance Due Date Last Done Comments Diabetes: Annual Foot Exam 11/05/1950 Diabetes: Annual Retina Eye Exam 11/05/1950 DTaP,Tdap,and Td Vaccines (1 - Tdap) 1960 RSV Immunization Adult Patients (1 - 1-dose 75+ series) 2016 Cholesterol Screening (Lipid Panel) 07/06/2022 Medicare Annual Wellness Visit 07/06/2022 Osteoporosis Screening (Bone Density Screening) 07/06/2022 Social Influencers of Health Screening 07/06/2022 Diabetes: Annual Urine Albumin-Creatinine Ratio (uACR) 07/13/2022 Diabetes: Blood Sugar Control Test (HGBA1C) 05/02/2023 10/31/2022 Depression Screening 07/28/2024 COVID-19 Vaccine ( season) 2025 06/11/2023, 04/20/2022, 12/25/2021, Additional history exists Influenza Vaccine (#1) 2025 , 06/16/2023, 05/17/2022, Additional history exists Diabetes: Annual GFR (Glomerular Filtration Rate) 05/05/2026 05/05/2025, 05/04/2025, 05/03/2025, Additional history exists Falls Risk Assessment 05/05/2026 05/05/2025 Hypertension/CHF/CAD Annual BMP Blood Test 05/05/2026 05/05/2025, 05/04/2025, 05/03/2025, Additional history exists Pneumococcal Vaccine: 50+ Years [...] age to complete this topic Meningococcal B Vaccine Aged Out No l onger eligible based on patient's age to complete this topic RSV Immunization Patients Under 20 months Aged Out No longer eligible based on patient's age to complete this topic Varicella Vaccines Aged Out No longer eligible based on patient's age to complete this topic Medical Devices Implanted Type Area Claims Investigator Device Identifier Shelf Expiration Date Model / Serial / Lot Pacemaker Leadless Micra - [id number] - [id number] Implanted:Qty: 1 on 05/04/2025 by Rm Vu MD at [facility] Cardiac Pacemaker Left: Chest Wall [employer] - CARDIAC RHYTH-CRDM [id number] 09/10/2025 [id number] / [id number] / Medt-Card Micra Vr2 [id number] Implanted:02/2025 (Quantity not on file) Cardiac Pacemaker [employer] - CARDIAC RHYTH-CRDM MICRA VR2 [id number] / [id number] / Procedures Procedure Name Priority Date/Time Associated Diagnosis Comments CARDIAC DEVICE CHECK- IN CLINIC- [facility] Routine 05/30/2025 9:48 AM EST Encounter for adjustment or management of cardiac device ECG 12-LEAD Routine 05/19/2025 3:20 PM EDT Paroxysmal atrial fibrillation (CMS/HCC V24, CMS/HCC V28) ECG ANNOTATED 05/06/2025 ECG OUTSIDE 05/06/2025 POCT GLUCOSE BLOOD Routine 05/05/2025 11 :04 AM EDT XR CHEST 2 VIEWS Routine 05/05/2025 8:12 AM EDT ECG 12-LEAD Routine 05/05/2025 7:53 AM EDT POCT GLUCOSE BLOOD Routine 05/05/2025 7: 48 AM EDT MAGNESIUM Routine 05/05/2025 5:52 AM EDT BASIC METABOLIC PANEL Routine 05/05/2025 5:52 AM EDT LAVENDER - EDTA Routine 05/05/2025 5:48 AM EDT EXTRA TUBES Routine 05/05/2025 5:48 AM EDT POCT GLUCOSE BLOOD Routine 05/04/2025 8: 22 PM EDT POCT GLUCOSE BLOOD Routine 05/04/2025 3: 23 PM EDT INSERT PPM SINGLE VENTRICULAR Routine 05/04/2025 1:08 PM EDT Atrial flutter with rapid ventricular response (CMS/HCC V24, CMS/HCC V28) POCT GLUCOSE BLOOD Routine 05/04/2025 11 :26 AM EDT POCT GLUCOSE BLOOD Routine 05/04/2025 7: 31 AM EDT CBC WITH AUTO DIFFERENTIAL Routine 05/04/2025 6:13 AM EDT MAGNESIUM Routine 05/04/2025 6:13 AM EDT CBC AND DIFFERENTIAL Routine 05/04/2025 6:13 AM EDT BASIC METABOLIC PANEL Routine 05/04/2025 6:13 AM EDT ECG ANNOTATED 05/04/2025 POCT GLUCOSE BLOOD Routine 05/03/2025 7: 06 PM EDT POCT GLUCOSE BLOOD Routine 05/03/2025 6: 32 PM EDT ECG 12-LEAD Routine 05/03/2025 5:13 PM EDT CBC WITH AUTO DIFFERENTIAL STAT 05/03/2025 3:33 PM EDT ACTIVATED PARTIAL THROMBOPLASTIN TIME STAT 05/03/2025 3:33 PM EDT PROTHROMBIN TIME WITH INR STAT 05/03/2025 3:33 PM EDT TROPONIN I HIGH SENSITIVITY STAT 05/03/2025 3:33 PM EDT MAGNESIUM STAT 05/03/2025 3:33 PM EDT COMPREHENSIVE METABOLIC PANEL STAT 05/03/2025 3:33 PM EDT CBC AND DIFFERENTIAL STAT 05/03/2025 3:33 PM EDT ECG 12-LEAD STAT 05/03/2025 2:44 PM EDT ECG 12-LEAD Routine 04/12/2025 2:23 PM EDT Chronic atrial fibrillation (CMS/HCC V24, CMS/HCC V28) POCT GLUCOSE BLOOD Routine 04/05/2025 11 :26 AM EDT POCT GLUCOSE BLOOD Routine 04/05/2025 7: 57 AM EDT OXYGEN THERAPY, ADULT Routine 04/05/2025 7:39 AM EDT OXYGEN THERAPY, ADULT Routine 04/05/2025 7:39 AM EDT PROCALCITONIN Add-On 04/05/2025 5:47 AM EDT BASIC METABOLIC PANEL Routine 04/05/2025 5:47 AM EDT COMPLETE BLOOD COUNT Routine 04/05/2025 5:47 AM EDT ECG ANNOTATED 04/05/2025 ECG ANNOTATED 04/05/2025 POCT GLUCOSE BLOOD Routine 04/04/2025 7: 59 PM EDT B-TYPE NATRIURETIC PEPTIDE Routine 04/04/2025 6:57 PM EDT RESPIRATORY VIRUS PANEL MOLECULAR STUDY STAT 04/04/2025 5:34 PM EDT POCT GLUCOSE BLOOD Routine 04/04/2025 4: 07 PM EDT ECG 12-LEAD STAT 04/04/2025 3:10 PM EDT CULTURE BLOOD STAT 04/04/2025 2:31 PM EDT CULTURE BLOOD STAT 04/04/2025 2:31 PM EDT XR CHEST 2 VIEWS STAT 04/04/2025 12:4 6 PM EDT ECG 12-LEAD STAT 04/04/2025 12:05 PM EDT [id number], QUALITATIVE REAL-TIME RT-PCR, INTERNAL LAB STAT 04/04/2025 11:50 AM EDT CBC WITH AUTO DIFFERENTIAL STAT 04/04/2025 11:43 AM EDT MAGNESIUM STAT 04/04/2025 11:43 AM EDT COMPREHENSIVE METABOLIC PANEL STAT 04/04/2025 11:43 AM EDT CBC AND DIFFERENTIAL STAT 04/04/2025 11:43 AM EDT from Last 3 Months Results * CARDIAC DEVICE CHECK- [place] [facility] [place] (05/30/2025 9:48 AM EST) [facility] Date Time Interrogation Session [id number] CV DEVICE CHECK Implantable Pulse Generator Claims Investigator MDT CV DEVICE CHECK Implantable Pulse Generator Type IPG CV DEVICE CHECK Implantable Pulse Generator Model Micra VR2 [id number] CV DEVICE CHECK Implantable Pulse Generator Serial Number [id number] CV DEVICE CHECK Implantable Pulse Generator Implant Date [id number] CV DEVICE CHECK Battery Voltage 3.070 CV D EVICE CHECK Battery HOSPITALITY SERVICES MANAGER Trigger 2.580 CV DEVICE CHECK Battery Status Middle of Service CV DEVICE CHECK Onur Statistic RV Percent Paced 20.11 CV DEVICE CHECK Lead Channel Sensing Intrinsic Amplitude 6.200 CV DEVICE CHECK Lead Channel Impedance Value 610 CV DEVICE CHECK Lead Channel Pacing Threshold Amplitude 4.750 CV DEVICE CHECK Lead Channel Pacing Threshold Pulse Width 0.4 CV DEVICE CHECK Onur Setting Mode (NBG Code) VVIR CV DEVICE CHECK Onur Setting Lower Rate Limit 60 CV DEVICE CHECK Onur Setting Maximum Sensor Rate 120 CV DEVICE CHECK Date of Service 2025-06-16 CV DEVICE CHECK Anatomical Region Laterality Modality Device Interroga tion 05/30/2025 Impressions 06/03/2025 11:34 AM EST Normal In-Office: No Events * Normal Device Function * Alerts or events: None * Battery: OK, 8.08 yrs * Sensing, impedance and thresholds reviewed and tested * Presenting Rhythm: VS 60s * Heart Rate Histograms reviewed, rate response turned on today. * Pacing and Detection Parameters were evaluated High Output Mode: RV * Leadless RV PPM in High Output Mode * Threshold in office today: 4.63V @ 0.4ms * Threshold with a pulse width of 1.0ms was 3.50V @ 1.0ms * Per LM due to inability to leave auto threshold on at pulse width of 1.0ms and increased battery drain, opted to leave device set with outputs maxed at 5V@0.4ms. (when auto is not on the max output option is only 4V w/ pw of 1.0ms) * Email sent to Janki coffman MDT for any recommendations Narrative Procedure Note Rm Vu MD - 06/03/2025 IMPRESSION: Normal In-Office: No Events * Normal Device Function * Alerts or events: None * Battery: OK, 8.08 yrs * Sensing, impedance and thresholds reviewed and tested * Presenting Rhythm: VS 60s * Heart Rate Histograms reviewed, rate response turned on today. * Pacing and Detection Parameters were evaluated High Output Mode: RV * Leadless RV PPM in High Output Mode * Threshold in office today: 4.63V @ 0.4ms * Threshold with a pulse width of 1.0ms was 3.50V @ 1.0ms * Per LM due to inability to leave auto threshold on at pulse width of1.0ms and increased battery drain, opted to leave device set with outputsmaxed at 5V@0.4ms. (when auto is not on the max output option is only 4V w/ pw of 1.0ms) * Email sent to Janki ESCALANTE for any recommendations us Order Referral Cardiovascular CV IMPLANTABLE CAR DIAC DEVICE PROCEDURES Final Result * ECG 12 lead (05/19/2025 3:20 PM EDT) Only the most recent of7 resultswithin the time period is included. 05/19/2025 2:26 PM EDT 05/19/2025 3:09 PM EDT Maria Eugenia Singleton WELT WHEELER ECG ORDERABLES Final Result [facility] * ECG-Outside (05/06/2025) Provider Onbase MD ECG ORDERABLES Final Result * ECG-Annotated (05/06/2025) Only the most recent of4 resultswithin the time period is included. Provider Onbase MD ECG ORDERABLES Final Result * (ABNORMAL) POCT Glucose, blood (05/05/2025 11:04 AM EDT) Only the most recent of12 resultswithin the time period is included. [facility] Glucose POCT 231(H) 70 - 100 mg/dL 05/05/2025 11:05 AM EDT [facility] Blood Capillary blood specimen / Unknown 05/05/2025 11:04 AM EDT 05/05/2025 11:06 AM EDT Marcial Abreu MD LAB POINT OF CARE TE ST DOCKED DEVICE UNSOLICITED RESULTS Final Result Performing Organization Address City/[facility]/ZIP Co de Phone Number [facility] [address] [place] [address], [place] [phone] * XR Chest 2 Views (05/05/2025 8:12 AM EDT) Only the most recent of2 resultswithin the time period is included. Anatomical Region Laterality Modality Body Radiographic Kya ging 05/05/2025 9:02 AM EDT Impressions 05/05/2025 9:05 AM EDT No evidence of active pulmonary disease. Interval placement of lead less pacemaker. -------- FINAL REPORT -------- Dictated By: Torey Chand Dictated Date: 05/05/2025 09:02 ET Assigned Physician: Torey Chand Reviewed and Electronically Signed By: Torey Chand Signed Date: 05/05/2025 09:05 ET Workstation ID: [id number] Transcribed By: Self Edit Transcribed Date: 05/05/2025 09:02 ET Narrative 05/05/2025 9:05 AM EDT INDICATION: Status post with pacemaker implant FINDINGS: Two views of the chest were obtained. Compared to multiple prior studies most recent from April 04, 2025. Lung orr are clear. Cardiomediastinal silhouette is normal in size and shape. Interval placement of lead less pacemaker overlying the left side of the heart. There are calcifications noted. Bony structures demonstrate significant compression deformity of the L1 vertebral body with resulting kyphosis, unchanged. Procedure Note Torey Chand MD - 05/05/2025 INDICATION: Status post with pacemaker implant FINDINGS: Two views of the chest were obtained. Compared to multiple priorstudies most recent from April 04, 2025. Lung orr are clear. Cardiomediastinal silhouette is normal in size and shape. Intervalplacement of lead less pacemaker overlying the left side of the heart. There are calcifications noted. Bony structures demonstrate significant compression deformity of the X0krdesdwem body with resulting kyphosis, unchanged. IMPRESSION: No evidence of active pulmonary disease. Interval placement of lead less pacemaker. -------- FINAL REPORT -------- Dictated By: Torey Chand Dictated Date: 05/05/2025 09:02 ET Assigned Physician: Torey Chand Reviewed and Electronically Signed By: Torey Chand Signed Date: 05/05/2025 09:05 ET Workstation ID: [id number] Transcribed By: Self Edit Transcribed Date: 05/05/2025 09:02 ET us Dione Gardner WELT WHE[employer]ER IMG XR PROCEDURES Final Re sult * Magnesium (05/05/2025 5:52 AM EDT) Only the most recent of4 resultswithin the time period is included. Pathologist [facility] Magnesium 2.2 1.9 - 2.6 mg/dL LAB CHEMISTRY METHOD 05/05/2025 7:11 AM [facility] Blood Venous blood specimen / Unknown Venipuncture / Unknown 05/05/2025 5:52 AM EDT 05/05/2025 6:20 AM EDT us Marcial Abreu MD LAB BLOOD ORDERABLES Final Re sult [facility] [address] [place] [address], * (ABNORMAL) Basic metabolic panel (05/05/2025 5:52 AM EDT) Only the most recent of3 resultswithin the time period is included. [facility] Sodium 140 133 - 145 mmol/L LAB CHEMISTRY METHOD 05/05/2025 7:11 AM [facility] Potassium 4.7 3.5 - 5.5 mmol/L LAB CHEMISTRY METHOD 05/05/2025 7:11 AM [facility] Chloride 109 96 - 110 mmol/L LAB CHEMISTRY METHOD 05/05/2025 7:11 AM [facility] CO2 25 21 - 32 mmol/L LAB CHEMISTRY METHOD 05/05/2025 7:11 AM [facility] Anion Gap 6 3 - 11 LAB CHEMISTRY METHOD 05/05/2025 7:11 AM [facility] Glucose 125(H) 70 - 100 mg/dL LAB CHEMISTRY METHOD 05/05/2025 7:11 AM [facility] BUN 36(H) 5 - 25 mg/dL LAB CHEMISTRY METHOD 05/05/2025 7:11 AM [facility] Creatinine 1.81(H) 0.50 - 1.10 mg/dL LAB CHEMISTRY METHOD 05/05/2025 7:11 AM EDT [facility] eGFR 27(L) >=60 mL/min/1. 73m2 LAB CHEMISTRY METHOD 05/05/2025 7:11 AM EDT [facility] Comment:Calculation based on the Chronic Kidney Disease Epidemiology Collaboration (CKD-EPI) equation refit without adjustment for race. BUN/Creatinine Ratio 19.9 LAB CHEMISTRY METHOD 05/05/2025 7:11 AM EDT [facility] Calcium 8.4(L) 8.5 - 10.5 mg/dL LAB CHEMISTRY METHOD 05/05/2025 7:11 AM EDT [facility] Blood Venous blood specimen / Unknown Venipuncture / Unknown 05/05/2025 5:52 AM EDT 05/05/2025 6:20 AM EDT us Marcial Abreu MD LAB BLOOD ORDERABLES Final Re sult Performing Organization Address City/[facility]/ZIP Co de Phone Number [facility] [address] [place] [address], [place] [phone] * Lavender tube (05/05/2025 5:48 AM EDT) Extra Tube Hold for add-ons. 05/05/2025 8:01 AM EDT [facility] Comment:Auto resulted. Blood Venous blood specimen / Unknown Venipuncture / Unknown 05/05/2025 5:48 AM EDT 05/05/2025 6:21 AM EDT us Marcial Abreu MD LAB BLOOD ORDERABLES Final Re sult [facility] [address] [place] [address], [place] [phone] * INSERT PPM SINGLE VENTRICULAR (05/04/2025 1:08 PM EDT) Anatomical Region Laterality Modality X-Ray Angiograph y Narrative 05/05/2025 7:08 AM EDT Successful implantation of a Micra VR leadless pacemaker Clinical Background This is an 84-year-old female with a history of atrial fibrillation, tachycardia-bradycardia syndrome and symptomatic bradycardia with inability to achieve adequate rate control pharmacologically due to transient bradycardia Procedure Details Procedure: Implantation of a leadless permanent pacemaker (Micra VR) under fluoroscopic guidance with moderate sedation Indication: Symptomatic nonreversible bradycardia from Inside Channel Account Manager: Rm Vu MD Procedure detail: After obtaining written informed consent the patient was brought to the EP laboratory in the fasting state was moderately sedated by her nursing staff using small doses of Versed and fentanyl. After the usual sterile prep and local anesthesia with 1% lidocaine I placed a femoral venous sheath in the right femoral vein using ultrasound guidance. I then dilated sequentially until we could place the Micra introducer sheath. I advanced that sheath over a stiff guidewire placed in the SVC. 3000 units of heparin was given and the sheath irrigated with heparinized saline continuously throughout the procedure. I then prepped the Micra in the standard fashion and introduced it into the RA and crossed the tricuspid valve. Ipositioned it onto the mid RV septum. After confirming stability the Micra was released and interrogated. I used fluoroscopic guidance to confirm that 2 of the [address] After confirming adequate capture thresholds, sensing and impedances the Micra was released and the sheath removed. There was a transient rise in the capture threshold with some variability of the R wave between 3.3 and 9 mV. Over period of 20 minutes the trend was towards stable impedances and declining capture thresholds such that the device was left in place with programmed output slightly higher than her usual. A femoral venous [id number] stitch was placed around the right femoral vein for hemostasis purposes. The device was again interrogated for stability. The procedure was then terminated. Device generator: Medtronic Micra VR model number MC 2 VR 01 serial number [id number] Capture threshold: 3.13 V at 0.4 ms, 9.9 mV R wave, 660 ohms impedance Impression: Successful implantation of a Micra VR leadless pacemaker. us Dione A Styspeck WELT WHEELER CV ELECTROPHYSIOLOGY PROCE DURES Final Result * (ABNORMAL) CBC auto differential (05/04/2025 6:13 AM EDT) Only the most recent of3 resultswithin the time period is included. [facility] Signature WBC 6.1 4.8 - 10.8 K/mcL LAB HEMETOLOGY METHOD 05/04/2025 8:43 AM [facility] RBC 3.40(L) 3.80 - 4.80 M/mcL LAB HEMETOLOGY METHOD 05/04/2025 8:43 AM [facility] Hemoglobin 10.7(L) 11.5 - 16.0 g/dL LAB HEMETOLOGY METHOD 05/04/2025 8:43 AM [facility] Hematocrit 33.8(L) 35.0 - 47.0 % LAB HEMETOLOGY METHOD 05/04/2025 8:43 AM [facility] MCV 100.6(H) 79.0 - 98.0 FL LAB HEMETOLOGY METHOD 05/04/2025 8:43 AM [facility] MCH 31.8 27.0 - 32.0 pcg LAB HEMETOLOGY METHOD 05/04/2025 8:43 AM [facility] MCHC 31.7(L) 32.0 - 37.0 g/dL LAB HEMETOLOGY METHOD 05/04/2025 8:43 AM [facility] RDW 14.1 11.0 - 15.0 % LAB HEMETOLOGY METHOD 05/04/2025 8:43 AM [facility] Platelets 249 130 - 400 K/mcL LAB HEMETOLOGY METHOD 05/04/2025 8:43 AM [facility] MPV 9.9 7.0 - 11.0 FL LAB HEMETOLOGY METHOD 05/04/2025 8:43 AM [facility] NRBC 0.0 <1.0 % LAB HEMETOLOGY METHOD 05/04/2025 8:43 AM [facility] NRBC Absolute 0.00 <0.10 K/mcL LAB HEMETOLOGY METHOD 05/04/2025 8:43 AM [facility] Neutrophils Relative 65.0 % LAB HEMETOLOGY METHOD 05/04/2025 8:43 AM [facility] Lymphocytes Relative 17.4 % LAB HEMETOLOGY METHOD 05/04/2025 8:43 AM [facility] Monocytes Relative 9.4 % LAB HEMETOLOGY METHOD 05/04/2025 8:43 AM [facility] Eosinophils Relative 6.6 % LAB HEMETOLOGY METHOD 05/04/2025 8:43 AM [facility] Basophils Relative 1.3 % LAB HEMETOLOGY METHOD 05/04/2025 8:43 AM [facility] Immature Granulocytes Relative 0.3 % LAB HEMETOLOGY METHOD 05/04/2025 8:43 AM [facility] Neutrophils Absolute 3.93 1.50 - 7.00 K/mcL LAB HEMETOLOGY METHOD 05/04/2025 8:43 AM [facility] Lymphocytes Absolute 1.05 1.00 - 5.00 K/mcL LAB HEMETOLOGY METHOD 05/04/2025 8:43 AM [facility] Monocytes Absolute 0.57 0.20 - 1.00 K/mcL LAB HEMETOLOGY METHOD 05/04/2025 8:43 AM [facility] Eosinophils Absolute 0.40 0.00 - 0.50 K/mcL LAB HEMETOLOGY METHOD 05/04/2025 8:43 AM [facility] Basophils Absolute 0.08 0.00 - 0.20 K/mcL LAB HEMETOLOGY METHOD 05/04/2025 8:43 AM [facility] Immature Granulocytes Absolute 0.02 0.00 - 0.03 K/mcL LAB HEMETOLOGY METHOD 05/04/2025 8:43 AM EDT [facility] Blood Venous blood specimen / Unknown Venipuncture / Unknown 05/04/2025 6:13 AM EDT 05/04/2025 8:42 AM EDT Roslyn MCKEON LAB BLOOD ORDERABLES Final R esult Performing Organization Address [facility] Co de Phone Number [facility] [address] [place] [address], * Troponin I High Sensitivity (05/03/2025 3:33 PM EDT) [facility] High Sensitivity Troponin I 28 <=54 ng/L LAB CHEMISTRY METHOD 05/03/2025 4:29 PM EDT [facility] Blood Venous blood specimen / Unknown Venipuncture / Unknown 05/03/2025 3:33 PM EDT 05/03/2025 3:47 PM EDT Narrative [facility] - 05/03/2025 4:29 PM EDT High levels of biotin in samples may falsely decrease hsTroponin values. Use caution when interpreting hsTroponin results in patients taking biotin who exhibit renal impairment (eGFR <60) or in patients taking more than 20 mg/day of biotin. Tim Rodriguez MD LAB BLOOD ORDERABLES Trina l Result Performing Organization Address [facility]/ZIP Co de Phone Number [facility] [address] [place] [address], [place] [phone] * APTT (05/03/2025 3:33 PM EDT) [facility] aPTT 29.5 24.1 - 39.3 sec LAB COAGULATION METHOD 05/03/2025 4:02 PM EDT [facility] Blood Venous blood specimen / Unknown Venipuncture / Unknown 05/03/2025 3:33 PM EDT 05/03/2025 3:47 PM EDT Tim Rodriguez MD LAB BLOOD ORDERABLES Trina l Result Performing Organization Address [facility]/ZIP Co de Phone Number [facility] [address] [place] [address], [place] [phone] * (ABNORMAL) Protime-INR (05/03/2025 3:33 PM EDT) Protime 16.2(H) 10.6 - 13.9 sec LAB COAGULATION METHOD 05/03/2025 4:02 PM EDT [facility] INR 1.3 LAB COAGULATION METHOD 05/03/2025 4:02 PM EDT [facility] Blood Venous blood specimen / Unknown Venipuncture / Unknown 05/03/2025 3:33 PM EDT 05/03/2025 3:47 PM EDT Tim Rodriguez MD LAB BLOOD ORDERABLES Trina l Result Performing Organization Address [facility] Co de Phone Number [facility] [address] [place] [address], [place] [phone] * (ABNORMAL) Comprehensive Metabolic Panel (CMP) (05/03/2025 3:33 PM EDT) Only the most recent of2 resultswithin the time period is included. Sodium 145 133 - 145 mmol/L LAB CHEMISTRY METHOD 05/03/2025 4:27 PM EDT [facility] Potassium 3.8 3.5 - 5.5 mmol/L LAB CHEMISTRY METHOD 05/03/2025 4:27 PM EDT [facility] Chloride 118(H) 96 - 110 mmol/L LAB CHEMISTRY METHOD 05/03/2025 4:27 PM EDT [facility] CO2 21 21 - 32 mmol/L LAB CHEMISTRY METHOD 05/03/2025 4:27 PM [facility] Anion Gap 6 3 - 11 LAB CHEMISTRY METHOD 05/03/2025 4:27 PM [facility] Glucose 131(H) 70 - 100 mg/dL LAB CHEMISTRY METHOD 05/03/2025 4:27 PM [facility] BUN 33(H) 5 - 25 mg/dL LAB CHEMISTRY METHOD 05/03/2025 4:27 PM [facility] Creatinine 1.37(H) 0.50 - 1.10 mg/dL LAB CHEMISTRY METHOD 05/03/2025 4:27 PM [facility] eGFR 38(L) >=60 mL/min/1. 73m2 LAB CHEMISTRY METHOD 05/03/2025 4:27 PM [facility] Comment:Calculation based on the Chronic Kidney Disease Epidemiology Collaboration (CKD-EPI) equation refit without adjustment for race. BUN/Creatinine Ratio 24.1 LAB CHEMISTRY METHOD 05/03/2025 4:27 PM [facility] Calcium 7.1(L) 8.5 - 10.5 mg/dL LAB CHEMISTRY METHOD 05/03/2025 4:27 PM [facility] AST (SGOT) 13 10 - 42 unit/L LAB CHEMISTRY METHOD 05/03/2025 4:27 PM [facility] ALT (SGPT) 12 10 - 60 unit/L LAB CHEMISTRY METHOD 05/03/2025 4:27 PM [facility] Alkaline Phosphatase 72 42 - 121 unit/L LAB CHEMISTRY METHOD 05/03/2025 4:27 PM [facility] Total Protein 4.9(L) 6.0 - 8.0 g/dL LAB CHEMISTRY METHOD 05/03/2025 4:27 PM [facility] Albumin 2.4(L) 3.2 - 5.0 g/dL LAB CHEMISTRY METHOD 05/03/2025 4:27 PM EDT [facility] Total Bilirubin 0.3 0.0 - 1.4 mg/dL LAB CHEMISTRY METHOD 05/03/2025 4:27 PM EDT [facility] Blood Venous blood specimen / Unknown Venipuncture / Unknown 05/03/2025 3:33 PM EDT 05/03/2025 3:47 PM EDT us Tim Rodriguez MD LAB BLOOD ORDERABLES Trina l Result [facility] [address] [place] [address], * (ABNORMAL) Procalcitonin (04/05/2025 5:47 AM EDT) Procalcitonin 0.38(H) <=0.16 ng/mL LAB CHEMISTRY METHOD 04/05/2025 9:20 AM EDT [facility] Blood Venous blood specimen / Unknown Venipuncture / Unknown 04/05/2025 5:47 AM EDT 04/05/2025 6:20 AM EDT Narrative [facility] - 04/05/2025 9:20 AM EDT Procalcitonin > 2.00 ng/ml: Procalcitonin Levels above 2.00 ng/ml, on the first day of ICU admission represent a high risk for progression to severe sepsis and/or septic shock. Procalcitonin < 0.50 ng/ml: Procalcitonin levels below 0.50 ng/ml on the first day of ICU admission represent a low risk for progression to severe sepsis and/or septic shock. Concentrations <0.5 ng/mL do not exclude an infection, on account of local ized infections (without systemic signs) which can be associated with such low concentrations, or a systemic infection in its initial stages (<6 hours). Furthermore, increased procalcitonin can occur without infection. PCT concentrations between 0.5 and 2.0 ng/mL should be interpreted taking into account the patient's history. It is recommended to retest PCT within 6-24 hours if any concentrations <2.0 ng/mL are obtained. us Marcial Abreu MD LAB BLOOD ORDERABLES Final Re sult [facility] [address] [place] [address], * (ABNORMAL) Complete blood count (04/05/2025 5:47 AM EDT) [facility] WBC 7.3 4.8 - 10.8 K/mcL LAB HEMETOLOGY METHOD 04/05/2025 6:30 AM EDT [facility] RBC 3.10(L) 3.80 - 4.80 M/mcL LAB HEMETOLOGY [facility] Hemoglobin 9.6(L) 11.5 - 16.0 g/dL LAB HEMETOLOGY METHOD 04/05/2025 6:30 AM [facility] Hematocrit 29.4(L) 35.0 - 47.0 % LAB HEMETOLOGY METHOD [facility]/05[facility]2025 [facility] MCV 96.4 79.0 - 98.0 FL LAB HEMETOLOGY METHOD 04/05/2025 6:30 AM EDT [facility] MCH 31.5 27.0 - 32.0 pcg LAB HEMETOLOGY METHOD 04/05/2025 6:30 AM [facility] MCHC 32.7 32.0 - 37.0 g/dL LAB HEMETOLOGY METHOD 04/05/2025 6:30 AM [facility] RDW 12.8 11.0 - 15.0 % LAB HEMETOLOGY METHOD 04/05/2025 6:30 AM [facility] Platelets 215 130 - 400 K/mcL LAB HEMETOLOGY METHOD 04/05/2025 6:30 AM EDT [facility] MPV 10.5 7.0 - 11.0 FL LAB HEMETOLOGY METHOD 04/05/2025 6:30 AM EDT [facility] NRBC 0.0 <1.0 % LAB HEMETOLOGY METHOD 04/05/2025 6:30 AM EDT [facility] NRBC Absolute 0.00 <0.10 K/mcL LAB HEMETOLOGY METHOD 04/05/2025 6:30 AM EDT [facility] Blood Venous blood specimen / Unknown Venipuncture / Unknown 04/05/2025 5:47 AM EDT 04/05/2025 6:20 AM EDT Kassi MCKEON LAB BLOOD ORDERABLES Final Resul t Performing Organization Address City/[facility]/ZIP Co de Phone Number [facility] [address] [place] [address], [place] [phone] * (ABNORMAL) B-type natriuretic peptide (04/04/2025 6:57 PM EDT) [facility] BNP 586(H) <=100 pcg/mL LAB CHEMISTRY METHOD 04/04/2025 7:43 PM EDT [facility] Blood Venous blood specimen / Unknown Venipuncture / Unknown 04/04/2025 6:57 PM EDT 04/04/2025 7:02 PM EDT Kassi MCKEON LAB BLOOD ORDERABLES Final Resul t [facility] [address] [place] [address], [place] [phone] * Respiratory virus panel molecular study (04/04/2025 5:34 PM EDT) [facility] Adenovirus Detection by PCR Not Detected Not Detected LAB MICROBIOLOGY METHOD 04/04/2025 6:59 PM EDT [facility] Influenza A PCR Not Detected Not Detected LAB MICROBIOLOGY METHOD 04/04/2025 6:59 PM EDT [facility] Influenza B PCR Not Detected Not Detected LAB MICROBIOLOGY METHOD 04/04/2025 6:59 PM EDT [facility] Coronavirus 229E Not Detected Not Detected LAB MICROBIOLOGY METHOD 04/04/2025 6:59 PM EDT [facility] Coronavirus HKU1 Not Detected Not Detected LAB MICROBIOLOGY METHOD 04/04/2025 6:59 PM EDT [facility] Coronavirus OC43 Not Detected Not Detected LAB MICROBIOLOGY METHOD 04/04/2025 6:59 PM EDT [facility] Coronavirus NL63 Not Detected Not Detected LAB MICROBIOLOGY METHOD 04/04/2025 6:59 PM EDT [facility] Parainfluenza Virus 1 Not Detected Not Detected LAB MICROBIOLOGY METHOD 04/04/2025 6:59 PM EDT [facility] Parainfluenza Virus 2 Not Detected Not Detected LAB MICROBIOLOGY METHOD 04/04/2025 6:59 PM EDT [facility] Parainfluenza Virus 3 Not Detected Not Detected LAB MICROBIOLOGY METHOD 04/04/2025 6:59 PM EDT [facility] Parainfluenza Virus 4 Not Detected Not Detected LAB MICROBIOLOGY METHOD 04/04/2025 6:59 PM EDT [facility] RSV PCR Not Detected Not Detected LAB MICROBIOLOGY METHOD 04/04/2025 6:59 PM EDT [facility] Human Metapneumovirus A and B Not Detected Not Detected LAB MICROBIOLOGY METHOD 04/04/2025 6:59 PM EDT [facility] Rhinovirus/Entero virus Not Detected Not Detected LAB MICROBIOLOGY METHOD 04/04/2025 6:59 PM EDT [facility] Bordetella pertussis Not Detected Not Detected LAB MICROBIOLOGY METHOD 04/04/2025 6:59 PM EDT [facility] Bordetella parapertussis Not Detected Not Detected LAB MICROBIOLOGY METHOD 04/04/2025 6:59 PM EDT [facility] Mycoplasma pneumo by PCR Not Detected Not Detected LAB MICROBIOLOGY METHOD 04/04/2025 6:59 PM EDT [facility] Chlamydia pneumoniae Not Detected Not Detected LAB MICROBIOLOGY METHOD 04/04/2025 6:59 PM EDT [facility] SARS COV-2 Not Detected Not Detected LAB MICROBIOLOGY METHOD 04/04/2025 6:59 PM EDT [facility] Swab Both anterior nares / Unknown Non-blood Collection / Unknown 04/04/2025 5:34 PM EDT 04/04/2025 5:51 PM EDT Narrative [facility] - 04/04/2025 6:59 PM EDT Testing was performed using the [employer] Respiratory Pathogen PCR Assay. All results must be correlated with the clinical findings. Results should not be used as the sole basis for diagnosis. False Negative results may occur from the presence of sequence variants in the region targeted by the assay or the presence of inhibitors. Results may be affected by concurrent antiviral/antimicrobial therapy or levels of organisms that are below the limit of detection. Kassi MCKEON LAB MICROBIOLOGY - GENERAL ORDER [place] Final Result [facility] [address] [place] [address], * Blood Culture, Peripheral Draw #2 (04/04/2025 2:31 PM EDT) Only the most recent of2 resultswithin the time period is included. Culture, Blood No growth at 5 days LAB MICROBIOLOGY METHOD 04/09/2025 4:01 PM EDT [facility] Blood Venous blood specimen / Unknown Venipuncture / Unknown 04/04/2025 2:31 PM EDT 04/04/2025 2:42 PM EDT Allyson Painting MD LAB MICROBIOLOGY - GENERAL ORDER [place] Final Result Performing Organization Address City/[facility]/ZIP Co de Phone Number [facility] [address] [place] [address], [place] [phone] * [id number], qualitative RT-PCR, internal lab (04/04/2025 11:50 AM EDT) SARS COV-2 Not Detected Not Detected LAB MICROBIOLOGY METHOD 04/04/2025 1:41 PM EDT [facility] Swab Both anterior nares / Unknown Non-blood Collection / Unknown 04/04/2025 11:50 AM EDT 04/04/2025 12:03 PM EDT Narrative [facility] - 04/04/2025 1:41 PM EDT Disclaimer: The manner in which this information is used to guide patient care is the responsibility of the healthcare provider. Testing was performed using the [employer] GeneXpert Xpress CoV-2 Plus PCR Assay. This test has been authorized by the FDA under an Emergency Use Authorization (EUA). This test is only authorized for the duration of time the declaration that circumstances exist justifying the authorization of the emergency use of in vitro diagnostic tests for detection of SARS-CoV-2 virus and/or diagnosis of COVID-19 infection under section 564(b)(1) of the Act, 21 U.S.C. 360bbb-3 (b)(1), unless the authorization is terminated or revoked sooner. Reference Range: Not Detected Fact sheet for Healthcare providers can be found at: https://www.fda.gov/media/971533/download Fact sheet for Healthcare patients can be found at: Http;//www.fda.gov/media/916377/download Allyson Painting MD LAB MICROBIOLOGY - GENERAL ORDER [place] Final Result Performing Organization Address City/[facility]/ZIP Co de Phone Number [facility] [address] [place] [address], [place] [phone] from Last 3 Months Insurance [employer] MEDICARE Advance Directives * Full Code - Default (Latest Code Status on File) Date Activated Date Inactivated Comments 05/03/2025 4:26 PM 05/05/2025 7:53 PM This is orde r is used when code status has not been discussed with the patient, or code status is otherwise unknown/unconfirmed To update the patient's code status, place a code status order. Do not modify or discontinue any currently active code status orders. * Full Code - Confirmed Date Activated Date Inactivated Comments 04/04/2025 5:31 PM 04/05/2025 5:17 PM This code stat us was ascertained in the following way: Code status discussion: discussion with patient To update the patient's code status, place a code status order. Do not modify or discontinue any currently active code status orders. * Full Code - Default Date Activated Date Inactivated Comments 04/04/2025 2:16 PM 04/04/2025 5:31 PM This is order is used when code status has not been discussed with the patient, or code status is otherwise unknown/unconfirmed To update the patient's code status, place a code status order. Do not modify or discontinue any currently active code status orders. Care Teams Financial Investment Manager Relationship Specialty Start Date End Date Lindsay Mckeon MD [address] [place] [address] PCP - General 10/05/10
--- OUTSIDE RECORDS SUMMARY | 2025-06-08 08:48 | XMS_ITS | Clinical Summary ---
Author Organization [facility]. Address [address] [place] [address] Phone Care Team Providers Care Numerical Control Tool Programmer Name Role Phone Semaj Mckeon MD Primary Care Provider [phone] Allergies No known active allergies Medications Multiple Vitamins-Financial Coordinator als (Multivitamin Adults 50+) tablet Take 1 [...] mouth 1 (one) time each day Active insulin lispro protamine-insu david lispro (HumaLOG MIX 50/50 KWIKPEN) (50-50) 100 UNIT/ML inj pen Inject into the skin. Active spironolactone (ALDACTONE) 25 MG tablet TAKE 1/2 TABLET(12.5 MG) BY MOUTH 1 TIME EACH DAY 45 tablet 3 5 Active lisinopril 20 MG tablet Take 1 tablet (20 mg total) by mouth 1 (one) time each day 90 tablet 3 5 Active Active Problems Problem Noted Date Diagnosed Date Atrial flutter 05/03/2025 Nonrheumatic aortic valve stenosis 09/21/2024 Asymptomatic carotid [...] Encounters Date Type Department Care Team Description 05/23/2025 9:40 AM EDT Office Visit [facility] [address] [phone] Ta Merida MD Chronic kidney disease, stage 4 (severe) (HCC) (Primary Dx); Chronic diastolic heart failure (HCC); Anemia in chronic kidney disease; Asymptomatic carotid artery stenosis <Unspecified side>; Other acute kidney failure (HCC); 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); Hypertension; Cyst of kidney; Personal history of breast cancer; Proteinuria, not otherwise specified; Type 2 diabetes mellitus with complication, not otherwise specified (HCC) 05/05/2025 Orders Only [facility] [address] [phone] Ta Merida MD Chronic kidney disease, stage 4 (severe) (HCC); Cyst of kidney; Hypertension; 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); Paroxysmal atrial fibrillation (HCC); Proteinuria, not otherwise specified; Type 2 diabetes mellitus with complication, not otherwise specified (HCC); Asymptomatic carotid artery stenosis <Unspecified side>; Anemia in chronic kidney disease; Other acute kidney failure (HCC) 04/24/2025 Refill [facility] [address] [phone] Ta Merida MD 04/21/2025 Documentation Only [facility] [address] [phone] Ta Merida MD 04/04/2025 Documentation Only [facility] [address] [phone] Ta Merida MD 04/04/2025 Documentation Only [facility] [address] [phone] Ta Merida MD 04/04/2025 Documentation Only [facility] [address] [phone] Ta Merida MD from Last 3 Months [...] Sign Reading Time Taken Comments Blood Pressure 124/66 05/23/2025 9:46 AM EDT Pulse 67 05/23/2025 9:46 AM EDT Temperature - - Respiratory Rate - - Oxygen Saturation 98% 05/23/2025 9:46 AM EDT Inhaled Oxygen Concentration - - Weight 70.3 kg (155 lb) 05/23/2025 9:46 AM EDT Height 165.1 cm (5' 5 ) 04/27/2024 10:32 AM EDT Body Mass Index 25.79 04/27/2024 10:32 AM EDT Plan of Treatment Upcoming Encounters Date Type Department Care Team (Late st Contact Info) Description 08/24/2025 9:40 AM EST Office Visit [facility] [address] [phone] Ta Merida MD [address] [phone] Health Maintenance Due Date Last Done Comments [...] (MEDICITY) Estimated Average Glucose 192 mg/dL [facility] Performing Lab Performing Lab(H) [facility] (MEDICITY) Comment: [employer], a member of [address] [address] Power Crane Operator - Gaviota Mejía MD 10/31/2022 9:10 AM EDT 10/31/2022 9:10 AM EDT us Ta Merida MD LAB BLOOD ORDERABLES Final Re sult [facility] ([facility]) from Last 3 Months or Most Recently Relevant to Health Maintenance Insurance [facility] Medicare Care Teams Numerical Control Tool Programmer Relationship Specialty Start Date End Date Semaj Mckeon MD [place] [address] PCP - General 08/07/20
== END 2025-06-08 09:24 | disposition home or self-care (01) ==
LOC: HO.HMCC 08:31
PROVIDERS: PCP Internal Medicine; Visit Provider Internal Medicine
DX: E11.42 Type 2 diabetes mellitus with diabetic polyneuropathy (principal)

== ENCOUNTER → 2025-06-08 08:30 | Outpatient (BNVA) | payer MEDICARE, SELFPAY | PROVIDERS: PCP Internal Medicine; Visit Provider Internal Medicine | DX: I10 Essential (primary) hypertension (principal); E78.5 Hyperlipidemia, unspecified; E03.9 Hypothyroidism, unspecified; E11.42 Type 2 diabetes mellitus with diabetic polyneuropathy | CPT/HCPCS: 83036; 99212 ==

== ENCOUNTER 2025-07-04 13:43 | Outpatient (AMB) | payer MEDICARE, SELFPAY ==
[2025-07-04 13:47] VITALS: BMI 26.7
--- NOTE | 2025-07-04 13:47 | MHC.OFFVIS ---
Vital Signs 07/04/25 13:47 Height 5 ft 2 in Weight 146 lb BMI 26.7 Intake Visit Reasons: Type 2 Diabetes mellitus with polyneuropathy Intake Note: Elva is a 84 year old female who presents to the office today as a new patient visit for Type 2 Diabetes mellitus with polyneuropathy referred by her PCP Dr. Mckeon. Pt states her last finger reading was 228 and her last A1C was a 7.2%. Denies any pain, numbing and tingling. Patient would like to discuss of possibility of being prescribed diabetic shoes. Allergies No Known Allergies (No Known Allergies*) Allergy (Verified 07/04/25 14:03) HPI Comments Details: The patient is an 84 year old female with a past medical history as seen below presenting for a diabetic foot exam. Her blood glucose levels vary, but she states it remains controlled. She denies any nausea or vomiting associated with her medication. The patient has a history of a previous toenail removal, which was done without chemicals, and she notes it took about a year for the nail to regrow. She has not yet received her diabetic shoes and inserts for the year. Patient states she experiences discomfort to the toes when the nails are too long or thick. She denies any recent pedal injuries. She denies any other pedal concerns. Patient numbness tingling. Patient was accompanied by a family member. 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 Background diabetic retinopathy associated with type 2 diabetes mellitus Osteoarthritis Hypothyroidism Carotid stenosis, right Obesity (BMI 30-39.9) Dyslipidemia Hypertension CKD (chronic kidney disease) stage 4, GFR 15-29 ml/min Diabetic nephropathy associated with type 2 diabetes mellitus intermediate (current) use of insulin Vitamin D deficiency Surgical History Hx of left mastectomy Hx of tubal ligation Hx of lumpectomy Hx of hysterectomy Family History Father Coronary artery disease Diabetes mellitus Mother Diabetes mellitus Social History Household Members: None Housing: House Alcohol intake: never Patient Tobacco Use Status: Never used Tobacco e-Cigarette/Vaping Use: Never Used Current occupational status: retired Cognitive needs: No Hearing needs: No Vision needs: Yes Review of Systems Const Details: - Neurological: Denies numbness and tingling in the feet. - Integumentary: Reports thickened, discolored, dystrophic, and elongated toenails x10. All systems reviewed & are unremarkable except as noted in HPI and below Physical Exam Vital Signs: BMI result Body Mass Index 26.7 Extrem Other: B/L LE Focused Physical Exam: Derm: Toenails x10 noted to be dystrophic, discolored, thickened, and elongated with subungual debris. Skin supple and turgor WNL. No open lesions, abrasions, or wounds noted. No active drainage, purulence, or bleeding noted. No clinical signs of infections. Vasc: DP mildly palpable. PT nonpalpable. CFT < 3 secs. Temp gradient warm to warm. Pedal hair absent. Varicosities noted. Moderate edema noted. Neuro: Protective sensation is grossly intact to light touch and monofilament testing. MSK: Discomfort noted to the forefoot due to thickened and elongated toenails. Pes planus foot type noted. No crepitus or fluctuance noted. Range of motion of the forefoot, hindfoot, and ankles within normal limits. Mildly slow gait noted with the use of a walker. No other gross abnormalities noted. Office Procedures AMB Debridement/Avulsion Podia Details: Debrided toenails x10 using sterile nail nippers and a sterile Dremel without any incidents. [id number] of Nail 6+ Procedure code (CPT) selection complete Diabetic Foot Exam G9226 - Diabetic Foot Exam Results Reviewed Results Reviewed: Laboratory Tests 03/05/25 06/08/25 08:45 08:57 Estimat Average Glucose 180 Hgb A1c (Clinic) 7.2 H Hemoglobin A1c % 7.9 H AST 30 ALT 13 Assessment & Plan Assessment & Plan (1) PVD (peripheral vascular disease): Code(s): I73.9 - Peripheral vascular disease, unspecified Category: Medical (2) Diabetes type 2: Code(s): E11.9 - Type 2 diabetes mellitus without complications Category: Medical (3) Pes planus: Code(s): M21.40 - Flat foot [pes planus] (acquired), unspecified foot Category: Medical (4) Varicose veins of bilateral lower extremities with other complications: Code(s): I83.893 - Varicose veins of bilateral lower extremities with other complications Category: Medical (5) Tinea unguium: Code(s): B35.1 - Tinea unguium Category: Medical (6) Nail dystrophy: Code(s): L60.3 - Nail dystrophy Category: Medical (7) Nail disorder: Code(s): L60.9 - Nail disorder, unspecified Category: Medical (8) intermediate (current) use of insulin: Code(s): Z79.4 - intermediate (current) use of insulin Category: Medical Plan Patient was informed and verbally consented to the use of an ambient scribe for clinic note documentation during this visit. Educated the patient on diabetes in the affects on the lower extremities. I provided the patient with a prescription for diabetic shoes and inserts. An appointment will be made for her to return in 9 weeks for continued routine nail care. - The patient's toenails x10 were debrided in the office. - A prescription for diabetic shoes and inserts was provided to the patient. - Recommended Epsom salt soaks as needed for any nail irritation. - Advised patient to wear supportive shoe gear and to avoid barefoot walking. - Continue wearing compression stockings. - Continue diabetic management as per PCP. RTC in 9 weeks. Orders: Orders AMB Debridement/Avulsion Podiatry 07/04/25 B35.1 - Tinea unguium, E11.9 - Type 2 diabetes mellitus without complications, I73.9 - Peripheral vascular disease, unspecified, I83.893 - Varicose veins of bilateral lower extremities with other complications, L60.3 - Nail dystrophy, L60.9 - Nail disorder, unspecified, M21.40 - Flat foot [pes planus] (acquired), unspecified foot AMB Diabetic Foot Exam 07/04/25 E11.9 - Type 2 diabetes mellitus without complications, Z79.4 - intermediate (current) use of insulin Medications: New [Diabetic shoes and inserts] As directed 1 ea 0RF E11.9 - Type 2 diabetes mellitus without complications, I73.9 - Peripheral vascular disease, unspecified, M21.40 - Flat foot [pes planus] (acquired), unspecified foot Coding Level of Care Code New Pt Level 4 (94380) Diagnoses PVD (peripheral vascular disease) I73.9 Diabetes type 2 E11.9 Pes planus M21.40 Varicose veins of bilateral lower extremities with other complications I83.893 Tinea unguium B35.1 Nail dystrophy L60.3 Nail disorder L60.9 intermediate (current) use of insulin Z79.4 CPT Codes Skin Debridement - CPT: 15726-[place] of Nail 6+ ([id number]) Diabetic Foot Exam - CPT: G9226 - Diabetic Foot Exam ([id number]) Time Spent (min) 55 Comment 10 mins for procedure
--- OUTSIDE RECORDS SUMMARY | 2025-07-04 22:32 | XMS_ITS | Clinical Summary ---
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 Will continue to monitor with remote and in office device interrogations. Atrial flutter 05/03/2025 Pneumonia of both lungs due to infectious [...] on renally dosed Eliquis (age, creatinine) for [id number] score of 6. Continue to monitor for [...] Date Resolved Date Acute hypoxemic respiratory failure 04/04/2025 04/05/2025 Chronic atrial fibrillation 09/21/2024 04/12/2025 Assessment & Plan (04/12/2025 5:16 [...] Description 05/30/2025 8:30 AM EST Ancillary Procedure [facility] [address] [facility] [address] [place] [address] Encounter for adjustment or management of cardiac device 05/19/2025 2:40 PM EDT Office Visit [facility] [address] [facility] [address] [place] [address] Maria Eugenia Singleton NP Paroxysmal atrial fibrillation (CMS/HCC V24, CMS/HCC V28) (Primary Dx); CHF (congestive heart failure), NYHA class II, chronic, diastolic (CMS/HCC V24, CMS/HCC V28); Primary hypertension; Nonrheumatic aortic valve stenosis; Tachy-onur syndrome (CMS/HCC V24, CMS/HCC V28) 05/06/[address] [facility] [address] [facility] [address] [place] [address] Jayda Griffin MD 05/06/[address] [facility] - [address] [place] [address] Jayda Griffin MD 05/04/2025 3:05 PM EDT - 05/04/2025 5:05 PM EDT Surgery [facility] Cardiac Occupational Safety And Health Manager [address] [place] [phone] Rm Vu MD Insert PPM single ventricular 05/03/2025 2:21 PM EDT - 05/05/2025 5:48 PM EDT Hospital Encounter [facility] Intermediate Care Unit [address] [place] [phone] Tim Rodriguez MD Bukalo, Nermina, MD Mohani, Priya, MD Bell, Alistair A, MD Atrial flutter with rapid ventricular response (CMS/HCC V24, CMS/HCC V28) (Primary Dx) Discharge Disposition: Home-Health Care [facility] 05/03/[address] [facility] [address] [place] [address] Jayda Griffin MD 04/18/[address] [facility] - [address] [place] [address] Jayda Griffin MD 04/12/2025 2:30 PM EDT Office Visit 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 - [address] [place] [phone] Jayda Griffin MD 04/04/2025 10:42 AM EDT - 04/05/2025 3:07 PM EDT Hospital Encounter [facility] Medical Surgical Unit [address] [place] [phone] Allyson Painting MD Kela, Kashyap Devendrabhai, MD Bell, Alistair A, MD Acute respiratory failure with hypoxia ([facility] V24, [facility] V28) (Primary Dx); Pneumonia of both lungs due to infectious organism, unspecified part of lung Discharge Disposition: Home-Health Care Svc from Last 3 Months Surgical History Surgery [...] DX:Hist ory of kidney stones Atrial fibrillation ([facility] V24, [facility] V28) DX:Atrial fibrillation (HCC) Carotid stenosis, asymptomatic D X:Carotid stenosis, asymptomatic Hypertension DX:Hypertension Type 2 diabetes mellitus wit h renal manifestations ([facility] V24, 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 V24, [facility] V28) 05/05/2019 DX:Type 2 diabetes mellitus with [...] Description 05/30/2026 8:30 AM EST Ancillary Procedure [facility] [address] [facility] [address] [place] [address] Health Maintenance Due Date Last Done Comments [...] this topic Medical Devices Implanted Type Area Supervising Airplane Pilot Device Identifier Shelf Expiration Date Model / Serial / Lot Pacemaker Leadless Micra - [id number] - [id number] Implanted:Qty: 1 on 05/04/2025 by Rm Vu MD at [facility] Cardiac Pacemaker Left: Chest Wall [employer] - C[facility]AC [facility] [id number] 09/10/2025 [id number] / [id number] / Medt-Card Micra Vr2 [id number] Implanted:02/2025 (Quantity not on file) Cardiac Pacemaker [employer] [facility] [id number] / [id number] / Procedures Procedure Name Priority Date/Time [...] ECG 12-LEAD STAT 04/04/2025 12:05 PM EDT [id number], QUALITATIVE REAL-TIME RT-PCR, INTERNAL LAB STAT 04/04/2025 11:50 AM EDT CBC WITH AUTO DIFFERENTIAL STAT 04/04/2025 11:43 AM EDT MAGNESIUM STAT 04/04/2025 11:43 AM EDT COMPREHENSIVE METABOLIC PANEL STAT 04/04/2025 11:43 AM EDT CBC AND DIFFERENTIAL STAT 04/04/2025 11:43 AM EDT from Last 3 Months Results * CARDIAC DEVICE CHECK- IN CLINIC- [facility] (05/30/2025 9:48 AM EST) Date Time Interrogation Session [id number] CV DEVICE CHECK Implantable Pulse Generator Supervising Airplane Pilot MDT CV DEVICE CHECK Implantable Pulse Generator Type IPG CV DEVICE CHECK Implantable Pulse Generator Model Micra VR2 [id number] CV DEVICE CHECK Implantable Pulse Generator Serial Number [id number] CV DEVICE CHECK Implantable Pulse Generator Implant Date [id number] CV DEVICE CHECK Battery Voltage 3.070 CV D EVICE CHECK Battery PHOTO LAB MANAGER Trigger 2.580 CV DEVICE CHECK Battery [...] of 1.0ms) * Email sent to Janki with T for any recommendations Narrative Procedure Note Rm [...] of 1.0ms) * Email sent to Janki with T for any recommendations us Order Referral Cardiovascular CV IMPLANTABLE CAR DIAC DEVICE PROCEDURES Final Result * ECG 12 lead (05/19/2025 3:20 PM EDT) Only the most recent of7 resultswithin the time period is included. Ventricular Rate ECG 84 BPM GEMUSE Atrial Rate 250 BPM GEMUSE QRS Duration 88 ms GEMUSE Q-T Interval 412 ms GEMUSE QTc 486 ms GEMUSE R [place] 100 degrees GEMUSE T [place] 105 degrees GEMUSE ECG Interpretation Atrial flutter with variable A-V block Rightward axis Nonspecific ST and T wave abnormality Abnormal ECG When compared with ECG of 05-MAY-2025 07:53, No significant changes are noted Confirmed by CAITLIN SEARS ([id number]) on 06/15/2025 4:09:52 PM GEMUSE 05/19/2025 2:26 PM EDT 06/15/2025 4:09 PM EST Maria Eugenia Singleton ECONOMIC FORECASTER ECG ORDERABLES Edited Result - Final GEMUSE * ECG-Outside (05/06/2025) us Provider Onbase MD ECG ORDERABLES Final Result * ECG-Annotated (05/06/2025) Only the most recent of4 resultswithin the time period is included. us Provider Onbase MD ECG ORDERABLES Final Result * (ABNORMAL) POCT Glucose, blood (05/05/2025 11:04 AM EDT) Only the most recent of12 resultswithin the time period is included. [facility] Glucose POCT 231(H) 70 - 100 mg/dL 05/05/2025 11:05 AM EDT [facility] Blood Capillary blood specimen / Unknown 05/05/2025 11:04 AM EDT 05/05/2025 11:06 AM EDT Marcial Abreu MD LAB POINT OF CARE TE ST DOCKED DEVICE UNSOLICITED RESULTS Final Result Performing Organization Address City/[facility]/ZIP Co de Phone Number [facility] [address] [place] [address], [place] [phone] * XR Chest 2 Views (05/05/2025 8:12 [...] Signed Date: 05/05/2025 09:05 ET Workstation ID: [id number] Transcribed By: Self Edit Transcribed Date: 05/05/2025 [...] structures demonstrate significant compression deformity of the [id number] body with resulting kyphosis, unchanged. IMPRESSION: No evidence of active pulmonary disease. Interval placement of lead less pacemaker. -------- FINAL REPORT -------- Dictated By: Torey Chand Dictated Date: 05/05/2025 09:02 ET Assigned Physician: Torey Chand Reviewed and Electronically Signed By: Torey Chand Signed Date: 05/05/2025 09:05 ET Workstation ID: [id number] Transcribed By: Self Edit Transcribed Date: 05/05/2025 09:02 ET us Dione Angelesyspeck ECONOMIC FORECASTER IMG XR PROCEDURES Final Re sult * Magnesium (05/05/2025 5:52 AM EDT) Only the most recent of4 resultswithin the time period is included. Pathologist [facility] Magnesium 2.2 1.9 - 2.6 mg/dL LAB CHEMISTRY METHOD 05/05/2025 7:11 AM [facility] Blood Venous blood specimen / Unknown Venipuncture / Unknown 05/05/2025 5:52 AM EDT 05/05/2025 6:20 AM EDT Marcial Abreu MD LAB BLOOD ORDERABLES Final Re sult [facility] [address] [place] [address], * (ABNORMAL) Basic metabolic panel (05/05/2025 5:52 AM EDT) Only the most recent of3 resultswithin the time period is included. [facility] Sodium 140 133 - 145 mmol/L LAB CHEMISTRY METHOD 05/05/2025 7:11 AM [facility] Potassium 4.7 3.5 - 5.5 mmol/L LAB CHEMISTRY METHOD 05/05/2025 7:11 AM [facility] Chloride 109 96 - 110 mmol/L LAB CHEMISTRY METHOD 05/05/2025 7:11 AM [facility] CO2 25 21 - 32 mmol/L LAB CHEMISTRY METHOD 05/05/2025 7:11 AM [facility] Anion Gap 6 3 - 11 LAB CHEMISTRY METHOD 05/05/2025 7:11 AM [facility] Glucose 125(H) 70 - 100 mg/dL LAB CHEMISTRY METHOD 05/05/2025 7:11 AM [facility] BUN 36(H) 5 - 25 mg/dL LAB CHEMISTRY METHOD 05/05/2025 7:11 AM [facility] Creatinine 1.81(H) 0.50 - 1.10 mg/dL LAB CHEMISTRY METHOD 05/05/2025 7:11 AM EDT [facility] eGFR 27(L) >=60 mL/min/1. 73m2 LAB CHEMISTRY METHOD 05/05/2025 7:11 AM EDT [facility] Comment:Calculation based on the Chronic Kidney Disease Epidemiology Collaboration (CKD-EPI) equation refit without adjustment for race. BUN/Creatinine Ratio 19.9 LAB CHEMISTRY METHOD 05/05/2025 7:11 AM EDT [facility] Calcium 8.4(L) 8.5 - 10.5 mg/dL LAB CHEMISTRY METHOD 05/05/2025 7:11 AM EDT [facility] Blood Venous blood specimen / Unknown Venipuncture / Unknown 05/05/2025 5:52 AM EDT 05/05/2025 6:20 AM EDT us Marcial Arbeu MD LAB BLOOD ORDERABLES Final Re sult Performing Organization Address City/[facility]/ZIP Co de Phone Number [facility] [address] [place] [address], [place] [phone] * Lavender tube (05/05/2025 5:48 AM EDT) Extra Tube Hold for add-ons. 05/05/2025 8:01 AM EDT [facility] Comment:Auto resulted. Blood Venous blood specimen / Unknown Venipuncture / Unknown 05/05/2025 5:48 AM EDT 05/05/2025 6:21 AM EDT us Marcial Abreu MD LAB BLOOD ORDERABLES Final Re sult [facility] [address] [place] [address], [place] [phone] * INSERT PPM SINGLE VENTRICULAR (05/04/2025 1:08 [...] moderate sedation Indication: Symptomatic nonreversible bradycardia from Stocking Inspector: Rm Vu MD Procedure detail: After obtaining [...] higher than her usual. A femoral venous [id number] stitch was placed around the right femoral vein for hemostasis purposes. The device was again interrogated for stability. The procedure was then terminated. Device generator: Medtronic Micra VR model number MC 2 VR 01 serial number [id number] Capture threshold: 3.13 V at 0.4 ms, 9.9 mV R wave, 660 ohms impedance Impression: Successful implantation of a Micra VR leadless pacemaker. us Dione Gardner NP CV ELECTROPHYSIOLOGY LULI SEVILLA Final Result * (ABNORMAL) CBC auto differential (05/04/2025 6:13 AM EDT) Only the most recent of3 resultswithin the time period is included. [facility] Signature WBC 6.1 4.8 - 10.8 K/mcL LAB HEMETOLOGY METHOD 05/04/2025 8:43 AM [facility] RBC 3.40(L) 3.80 - 4.80 M/mcL LAB HEMETOLOGY METHOD 05/04/2025 8:43 AM [facility] Hemoglobin 10.7(L) 11.5 - 16.0 g/dL LAB HEMETOLOGY METHOD 05/04/2025 8:43 AM [facility] Hematocrit 33.8(L) 35.0 - 47.0 % LAB HEMETOLOGY METHOD 05/04/2025 8:43 AM [facility] MCV 100.6(H) 79.0 - 98.0 FL LAB HEMETOLOGY METHOD 05/04/2025 8:43 AM [facility] MCH 31.8 27.0 - 32.0 pcg LAB HEMETOLOGY METHOD 05/04/2025 8:43 AM [facility] MCHC 31.7(L) 32.0 - 37.0 g/dL LAB HEMETOLOGY METHOD 05/04/2025 8:43 AM [facility] RDW 14.1 11.0 - 15.0 % LAB HEMETOLOGY METHOD 05/04/2025 8:43 AM [facility] Platelets 249 130 - 400 K/mcL LAB HEMETOLOGY METHOD 05/04/2025 8:43 AM [facility] MPV 9.9 7.0 - 11.0 FL LAB HEMETOLOGY METHOD 05/04/2025 8:43 AM [facility] NRBC 0.0 <1.0 % LAB HEMETOLOGY METHOD 05/04/2025 8:[facility] NRBC Absolute 0.00 <0.10 K/mcL LAB HEMETOLOGY METHOD 05/04/2025 8:43 AM [facility] Neutrophils Relative 65.0 % LAB HEMETOLOGY METHOD 05/04/2025 8:43 AM [facility] Lymphocytes Relative 17.4 % LAB HEMETOLOGY METHOD 05/04/2025 8:43 AM [facility] Monocytes Relative 9.4 % LAB HEMETOLOGY METHOD 05/04/2025 8:43 AM [facility] Eosinophils Relative 6.6 % LAB HEMETOLOGY METHOD 05/04/2025 8:43 AM [facility] Basophils Relative 1.3 % LAB HEMETOLOGY METHOD 05/04/2025 8:43 AM [facility] Immature Granulocytes Relative 0.3 % LAB HEMETOLOGY METHOD 05/04/2025 8:43 AM [facility] Neutrophils Absolute 3.93 1.50 - 7.00 K/mcL LAB HEMETOLOGY METHOD 05/04/2025 8:43 AM [facility] Lymphocytes Absolute 1.05 1.00 - 5.00 K/mcL LAB HEMETOLOGY METHOD 05/04/2025 8:43 AM [facility] Monocytes Absolute 0.57 0.20 - 1.00 K/mcL LAB HEMETOLOGY METHOD 05/04/2025 8:43 AM [facility] Eosinophils Absolute 0.40 0.00 - 0.50 K/mcL LAB HEMETOLOGY METHOD 05/04/2025 8:43 AM [facility] Basophils Absolute 0.08 0.00 - 0.20 K/mcL LAB HEMETOLOGY METHOD 05/04/2025 8:43 AM [facility] Immature Granulocytes Absolute 0.02 0.00 - 0.03 K/mcL LAB HEMETOLOGY METHOD 05/04/2025 8:43 AM EDT [facility] Blood Venous blood specimen / Unknown Venipuncture / Unknown 05/04/2025 6:13 AM EDT 05/04/2025 8:42 AM EDT Roslyn MCKEON LAB BLOOD ORDERABLES Final R esult Performing Organization Address [facility]/ZIP Co de Phone Number [facility] [address] [place] [address], * Troponin I High Sensitivity (05/03/2025 3:33 PM EDT) [facility] High Sensitivity Troponin I 28 <=54 ng/L LAB CHEMISTRY METHOD 05/03/2025 4:29 PM EDT [facility] Blood Venous blood specimen / Unknown Venipuncture / Unknown 05/03/2025 3:33 PM EDT 05/03/2025 3:47 PM EDT Narrative [facility] - 05/03/2025 4:29 PM EDT High levels of biotin in samples may falsely decrease hsTroponin values. Use caution when interpreting hsTroponin results in patients taking biotin who exhibit renal impairment (eGFR <60) or in patients taking more than 20 mg/day of biotin. Tim Rodriguez MD LAB BLOOD ORDERABLES Trina l Result Performing Organization Address [facility] Co de Phone Number [facility] [address] [place] [address], [place] [phone] * APTT (05/03/2025 3:33 PM EDT) [facility] aPTT 29.5 24.1 - 39.3 sec LAB COAGULATION METHOD 05/03/2025 4:02 PM EDT [facility] Blood Venous blood specimen / Unknown Venipuncture / Unknown 05/03/2025 3:33 PM EDT 05/03/2025 3:47 PM EDT Tim Rodriguez MD LAB BLOOD ORDERABLES Trina l Result Performing Organization Address [facility]/ZIP Co de Phone Number [facility] [address] [place] [address], [place] [phone] * (ABNORMAL) Protime-INR (05/03/2025 3:33 PM EDT) [facility] Protime 16.2(H) 10.6 - 13.9 sec LAB COAGULATION METHOD 05/03/2025 4:02 PM EDT [facility] INR 1.3 LAB COAGULATION METHOD 05/03/2025 4:02 PM EDT [facility] Blood Venous blood specimen / Unknown Venipuncture / Unknown 05/03/2025 3:33 PM EDT 05/03/2025 3:47 PM EDT Tim Rodriguez MD LAB BLOOD ORDERABLES Trina l Result Performing Organization Address [facility]/ZIP Co de Phone Number [facility] [address] [place] [address], [place] [phone] * (ABNORMAL) Comprehensive Metabolic Panel (CMP) (05/03/2025 3:33 PM EDT) Only the most recent of2 resultswithin the time period is included. [facility] Sodium 145 133 - 145 mmol/L LAB CHEMISTRY METHOD 05/03/2025 4:27 PM EDT [facility] Potassium 3.8 3.5 - 5.5 mmol/L LAB CHEMISTRY METHOD 05/03/2025 4:27 PM EDT [facility] Chloride 118(H) 96 - 110 mmol/L LAB CHEMISTRY METHOD 05/03/2025 4:27 PM EDT [facility] CO2 21 21 - 32 mmol/L LAB CHEMISTRY METHOD 05/03/2025 4:27 PM [facility] Anion Gap 6 3 - 11 LAB CHEMISTRY METHOD 05/03/2025 4:27 PM [facility] Glucose 131(H) 70 - 100 mg/dL LAB CHEMISTRY METHOD 05/03/2025 4:27 PM [facility] BUN 33(H) 5 - 25 mg/dL LAB CHEMISTRY METHOD 05/03/2025 4:27 PM [facility] Creatinine 1.37(H) 0.50 - 1.10 mg/dL LAB CHEMISTRY METHOD 05/03/2025 4:27 PM [facility] eGFR 38(L) >=60 mL/min/1. 73m2 LAB CHEMISTRY METHOD 05/03/2025 4:27 PM [facility] Comment:Calculation based on the Chronic Kidney Disease Epidemiology Collaboration (CKD-EPI) equation refit without adjustment for race. BUN/Creatinine Ratio 24.1 LAB CHEMISTRY METHOD 05/03/2025 4:27 PM [facility] Calcium 7.1(L) 8.5 - 10.5 mg/dL LAB CHEMISTRY METHOD 05/03/2025 4:27 PM [facility] AST (SGOT) 13 10 - 42 unit/L LAB CHEMISTRY METHOD 05/03/2025 4:27 PM [facility] ALT (SGPT) 12 10 - 60 unit/L LAB CHEMISTRY METHOD 05/03/2025 4:27 PM [facility] Alkaline Phosphatase 72 42 - 121 unit/L LAB CHEMISTRY METHOD 05/03/2025 4:27 PM [facility] Total Protein 4.9(L) 6.0 - 8.0 g/dL LAB CHEMISTRY METHOD 05/03/2025 4:27 PM [facility] Albumin 2.4(L) 3.2 - 5.0 g/dL LAB CHEMISTRY METHOD 05/03/2025 4:27 PM [facility] Total Bilirubin 0.3 0.0 - 1.4 mg/dL LAB CHEMISTRY METHOD 05/03/2025 4:27 PM EDT [facility] Blood Venous blood specimen / Unknown Venipuncture / Unknown 05/03/2025 3:33 PM EDT 05/03/2025 3:47 PM EDT us Tim Rodriguez MD LAB BLOOD ORDERABLES Tirna l Result [facility] [address] [place] [address], [place] [phone] * (ABNORMAL) Procalcitonin (04/05/2025 5:47 AM EDT) Procalcitonin 0.38(H) <=0.16 ng/mL LAB CHEMISTRY METHOD 04/05/2025 9:20 AM EDT [facility] Blood Venous blood specimen / Unknown Venipuncture / Unknown 04/05/2025 5:47 AM EDT 04/05/2025 6:20 AM EDT Narrative [facility] - 04/05/2025 9:20 AM EDT Procalcitonin [...] MD LAB BLOOD ORDERABLES Final Re sult [facility] [address] [place] [address], [place] [phone] * (ABNORMAL) Complete blood count (04/05/2025 5:47 AM EDT) [facility] Signature WBC 7.3 4.8 - 10.8 K/mcL LAB HEMETOLOGY METHOD 04/05/2025 6:30 AM EDT [facility] RBC 3.10(L) 3.80 - 4.80 M/mcL LAB HEMETOLOGY METHOD 04/05[facility]2025 6[facility] Hemoglobin 9.6(L) 11.5 - 16.0 g/dL LAB HEMETOLOGY METHOD 04/05/2025 6:30 AM EDT [facility] Hematocrit 29.4(L) 35.0 - 47.0 % LAB HEMETOLOGY METHOD 04/05/2025 6:30 AM EDT [facility] MCV 96.4 79.0 - 98.0 FL LAB HEMETOLOGY METHOD 04/05/2025 6:30 AM EDT [facility] MCH 31.5 27.0 - 32.0 pcg LAB HEMETOLOGY METHOD 04/05/2025 6:30 AM EDT [facility] MCHC 32.7 32.0 - 37.0 g/dL LAB HEMETOLOGY METHOD 04/05/2025 6:30 AM EDT [facility] RDW 12.8 11.0 - 15.0 % LAB HEMETOLOGY METHOD 04/05/2025 6:[facility] Platelets 215 130 - 400 K/mcL LAB HEMETOLOGY METHOD 04/05/2025 6:30 AM EDT [facility] MPV 10.5 7.0 - 11.0 FL LAB HEMETOLOGY METHOD 04/05/2025 6:30 AM EDT [facility] NRBC 0.0 <1.0 % LAB HEMETOLOGY METHOD 04/05/2025 6:30 AM EDT [facility] NRBC Absolute 0.00 <0.10 K/mcL LAB HEMETOLOGY METHOD 04/05/2025 6:30 AM EDT [facility] Blood Venous blood specimen / Unknown Venipuncture / Unknown 04/05/2025 5:47 AM EDT 04/05/2025 6:20 AM EDT Kassi MCKEON LAB BLOOD ORDERABLES Final Resul t Performing Organization Address [facility]/ZIP Co de Phone Number [facility] [address] [place] [address], [place] [phone] * (ABNORMAL) B-type natriuretic peptide (04/04/2025 6:57 PM EDT) Pathologist [facility] BNP 586(H) <=100 pcg/mL LAB CHEMISTRY METHOD 04/04/2025 7:43 PM EDT [facility] Blood Venous blood specimen / Unknown Venipuncture / Unknown 04/04/2025 6:57 PM EDT 04/04/2025 7:02 PM EDT Kassi MCKEON LAB BLOOD ORDERABLES Final Resul t Performing Organization Address City/[facility]/ZIP Co de Phone Number [facility] [address] [place] [address], [place] [phone] * Respiratory virus panel molecular study (04/04/2025 5:34 PM EDT) Adenovirus Detection by PCR Not Detected Not Detected LAB MICROBIOLOGY METHOD 04/04/2025 6:59 PM EDT [facility] Influenza A PCR Not Detected Not Detected LAB MICROBIOLOGY METHOD 04/04/2025 6:59 PM EDT [facility] Influenza B PCR Not Detected Not Detected LAB MICROBIOLOGY METHOD 04/04/2025 6:59 PM EDT [facility] Coronavirus 229E Not Detected Not Detected LAB MICROBIOLOGY METHOD 04/04/2025 6:59 PM EDT [facility] Coronavirus HKU1 Not Detected Not Detected LAB MICROBIOLOGY METHOD 04/04/2025 6:59 PM EDT [facility] Coronavirus OC43 Not Detected Not Detected LAB MICROBIOLOGY METHOD 04/04/2025 6:59 PM EDT [facility] Coronavirus NL63 Not Detected Not Detected LAB MICROBIOLOGY METHOD 04/04/2025 6:59 PM EDT [facility] Parainfluenza Virus 1 Not Detected Not Detected LAB MICROBIOLOGY METHOD 04/04/2025 6:59 PM EDT [facility] Parainfluenza Virus 2 Not Detected Not Detected LAB MICROBIOLOGY METHOD 04/04/2025 6:59 PM EDT [facility] Parainfluenza Virus 3 Not Detected Not Detected LAB MICROBIOLOGY METHOD 04/04/2025 6:59 PM EDT [facility] Parainfluenza Virus 4 Not Detected Not Detected LAB MICROBIOLOGY METHOD 04/04/2025 6:59 PM EDT [facility] RSV PCR Not Detected Not Detected LAB MICROBIOLOGY METHOD 04/04/2025 6:59 PM EDT [facility] Human Metapneumovirus A and B Not Detected Not Detected LAB MICROBIOLOGY METHOD 04/04/2025 6:59 PM EDT [facility] Rhinovirus/Entero virus Not Detected Not Detected LAB MICROBIOLOGY METHOD 04/04/2025 6:59 PM EDT [facility] Bordetella pertussis Not Detected Not Detected LAB MICROBIOLOGY METHOD 04/04/2025 6:59 PM EDT [facility] Bordetella parapertussis Not Detected Not Detected LAB MICROBIOLOGY METHOD 04/04/2025 6:59 PM EDT [facility] Mycoplasma pneumo by PCR Not Detected Not Detected LAB MICROBIOLOGY METHOD 04/04/2025 6:59 PM EDT [facility] Chlamydia pneumoniae Not Detected Not Detected LAB MICROBIOLOGY METHOD 04/04/2025 6:59 PM EDT [facility] SARS COV-2 Not Detected Not Detected LAB MICROBIOLOGY METHOD 04/04/2025 6:59 PM EDT [facility] Swab Both anterior nares / Unknown Non-blood Collection / Unknown 04/04/2025 5:34 PM EDT 04/04/2025 5:51 PM EDT Narrative [facility] - 04/04/2025 6:59 PM EDT Testing was performed using the [employer] Respiratory Pathogen PCR Assay. All results must [...] MICROBIOLOGY - GENERAL ORDER [place] Final Result [facility] [address] [place] [address], * Blood Culture, Peripheral Draw #2 (04/04/2025 2:31 PM EDT) Only the most recent of2 resultswithin the time period is included. Culture, Blood No growth at 5 days LAB MICROBIOLOGY METHOD 04/09/2025 4:01 PM EDT [facility] Blood Venous blood specimen / Unknown Venipuncture / Unknown 04/04/2025 2:31 PM EDT 04/04/2025 2:42 PM EDT Allyson Painting MD LAB MICROBIOLOGY - GENERAL ORDER [place] Final Result Performing Organization Address City/[facility]/ZIP Co de Phone Number [facility] [address] [place] [address], * [id number], qualitative RT-PCR, internal lab (04/04/2025 11:50 AM EDT) SARS COV-2 Not Detected Not Detected LAB MICROBIOLOGY METHOD 04/04/2025 1:41 PM EDT [facility] Swab Both anterior nares / Unknown Non-blood Collection / Unknown 04/04/2025 11:50 AM EDT 04/04/2025 12:03 PM EDT Narrative [facility] - 04/04/2025 1:41 PM EDT Disclaimer: The manner in which this information is used to guide patient care is the responsibility of the healthcare provider. Testing was performed using the [employer] GeneXpert Xpress CoV-2 Plus PCR Assay. This [...] for Healthcare providers can be found at: https://www.fda.gov/media/437884/download Fact sheet for Healthcare patients can be found at: Http;//www.fda.gov/media/356945/download Allyson Painting MD LAB MICROBIOLOGY - GENERAL ORDER [place] Final Result [facility] [address] [place] [address], [place] [phone] from Last 3 Months Insurance [employer] [...] currently active code status orders. Care Teams Inpatient Coder Relationship Specialty Start Date End Date Lindsay Mckeon MD [address] [place] [address] PCP - General 10/05/10
--- OUTSIDE RECORDS SUMMARY | 2025-07-04 22:32 | XMS_ITS | Patient Health Record ---
Author Organization [facility] Address [address] [place] [id number] Care Team Providers Care Poker Supervisor Name Role Phone Mike HUNG, Lindsay Primary Care Provider Black Owens [phone] Reason For Referral No Information Plan Of Treatment No Information Insurance Providers Payer Name Payer Address Payer Phone Subscriber Number Group Number Insured Name Patient Relationship to Insured Coverage Start Date Coverage End Date [place] [address] [place] [phone] [id number] MEÑO ONEIL Self - patient is the insured [facility] [address] [place] [phone] [id number] MEÑO ONEIL Self - patient is the insured
== END 2025-07-04 14:30 | disposition home or self-care (01) ==
LOC: HO.HPODS 13:44
PROVIDERS: PCP Internal Medicine; Visit Provider Student in an Organized Health Care Education/Training Program
DX: E11.59 Type 2 diabetes mellitus with other circulatory complications (principal); I73.9 Peripheral vascular disease, unspecified; M21.40 Flat foot [pes planus] (acquired), unspecified foot; I83.893 Varicose veins of bilateral lower extremities with other complications; B35.1 Tinea unguium; L60.3 Nail dystrophy; L60.9 Nail disorder, unspecified; Z79.4 Long term (current) use of insulin
CPT/HCPCS: 11721; 99204; G9226

== ENCOUNTER → 2025-07-04 13:43 | Outpatient (BNVA) | payer MEDICARE, SELFPAY | PROVIDERS: PCP Internal Medicine; Visit Provider Student in an Organized Health Care Education/Training Program | DX: E11.42 Type 2 diabetes mellitus with diabetic polyneuropathy (principal); I73.9 Peripheral vascular disease, unspecified; M21.40 Flat foot [pes planus] (acquired), unspecified foot; I83.893 Varicose veins of bilateral lower extremities with other complications; B35.1 Tinea unguium; L60.3 Nail dystrophy; L60.9 Nail disorder, unspecified; Z79.4 Long term (current) use of insulin | CPT/HCPCS: 11721; 99202 ==